=== PATIENT | female | born 1980 | race American Indian/Alaskan Native ===

== ENCOUNTER 2017-07-26 22:15 | Inpatient (IN) | payer MEDICAID, OTHER ==
[2017-07-26 22:23] VITALS: BMI 52.9
--- NOTE | 2017-07-26 22:50 | ED PDOC ---
Arrival/HPI - General Chief Complaint: Psychiatric Evaluation Time Seen by Provider: 07/26/17 22:16 Historian: Patient - History of Present Illness Narrative History of Present Illness (Text): 07/26/17 22:20 Mena Forrest is a 37 year old female brought in by Rakesh COLIN whose past medical history includes schizophrenia and bipolar disorder, who presents to the ED brought in by EMS for psychiatric evaluation. Patient denies any fever, chills, chest pain, shortness of breath, nausea, vomiting, diarrhea, urinary symptoms, back pain, neck pain, headache, dizziness, or any other complaints. PMD: Dr. Fritz Time/Duration: 4-6 hours Symptom Onset: Gradual Symptom Course: Unchanged Severity Level: Mild Activities at Onset: Light Context: Home Past Medical History - Provider Review Nursing Documentation Reviewed: Yes - Infectious Disease Hx of Infectious Diseases: None - Cardiac Hx Hypertension: Yes - Pulmonary Hx Tuberculosis: No - Neurological HX Cerebrovascular Accident: No Hx Seizures: No Other/Comment: Insomnia - Hematological/Oncological Hx Cancer: No - Genitourinary/Gynecological Hx Sexually Transmitted Diseases: No - Psychiatric Hx Anxiety: Yes Hx Bipolar Disorder: Yes Hx Schizophrenia: Yes Hx Substance Use: Yes - Anesthesia Hx Anesthesia: No Family/Social History - Physician Review Nursing Documentation Reviewed: Yes Family/Social History: No Known Family HX Smoking Status: Light Smoker < 10 Cigarettes Daily Hx Alcohol Use: Yes Frequency of alcohol use: Socially Hx Substance Use: Yes Substance used: PCP; Marijuana Allergies/Home Meds Allergies/Adverse Reactions: Allergies No Known Allergies Allergy (Verified 07/27/17 03:25) Review of Systems - Review of Systems Constitutional: absent: Fevers Eyes: absent: Vision Changes ENT: absent: Hearing Changes Respiratory: absent: SOB, Cough Cardiovascular: absent: Chest Pain Gastrointestinal: absent: Abdominal Pain Genitourinary Female: absent: Frequency Musculoskeletal: absent: Arthralgias Skin: absent: Pruritis Neurological: absent: Headache, Dizziness Endocrine: absent: Diaphoresis Hemo/Lymphatic: absent: Adenopathy Physical Exam Vital Signs Reviewed: Yes Vital Signs Temp Pulse Resp BP Pulse Ox 07/26/17 23:04 98 F 99 H 18 134/84 97 Temperature: Afebrile Blood Pressure: Normal Pulse: Regular Respiratory Rate: Normal Appearance: Positive for: Well-Appearing, Non-Toxic, Comfortable Pain Distress: None Mental Status: Positive for: Alert and Oriented X 3 - Systems Exam Head: Present: Atraumatic, Normocephalic Pupils: Present: PERRL Extroacular Muscles: Present: EOMI Conjunctiva: Present: Normal Mouth: Present: Moist Mucous Membranes Neck: Present: Normal Range of Motion Respiratory/Chest: Present: Clear to Auscultation, Good Air Exchange. No: Respiratory Distress, Accessory Muscle Use Cardiovascular: Present: Regular Rate and Rhythm, Normal S1, S2. No: Murmurs Abdomen: Present: Normal Bowel Sounds. No: Tenderness, Distention, Peritoneal Signs Back: Present: Normal Inspection Upper Extremity: Present: Normal Inspection. No: Cyanosis, Edema Lower Extremity: Present: Normal Inspection. No: Edema Neurological: Present: GCS=15, CN II-XII Intact, Speech Normal Skin: Present: Warm, Dry, Normal Color. No: Rashes Psychiatric: Present: Alert, Oriented x 3, Normal Insight, Normal Concentration Medical Decision Making ED Course and Treatment: 07/26/17 22:20 Impression: 37 year old female presents with schizophrenia and is acting bizare as per [place] [facility]. Differential Diagnosis included but are not limited to: Schizophrenia Plan: -- EKG -- Urinalysis -- Labs -- Reassess and disposition Prior Visits: Notes and results from previous visits were reviewed. Patient last seen in the ED on 03/20/16 for psychiatric evaluation. Patient was admitted to the hospitalist care for further evaluation Progress Notes: 07/26/17 23:31 Patient evaluated by PES and will be admitted. - Lab Interpretations Lab Results: 07/26/17 23:53 07/26/17 23:53 Lab Results 07/26/17 23:53: Alcohol, Quantitative < 10 07/26/17 23:53: Salicylates < 1 L, Acetaminophen < 10.0 L 07/26/17 23:53: Sodium 140, Potassium 3.6, Chloride 106, Carbon Dioxide 26, Anion Gap 12, BUN 11, Creatinine 0.8, Est GFR ( Amer) > 60, Est GFR (Non- Af Amer) > 60, Random Glucose 93, Calcium 9.0, Total Bilirubin 0.2, AST 27, ALT 23, Alkaline Phosphatase 94, Total Protein 6.9, Albumin 3.6, Globulin 3.3, Albumin/Globulin Ratio 1.1 07/26/17 23:53: WBC 6.3 D, RBC 4.33, Hgb 12.1, Hct 36.2, MCV 83.6, MCH 27.9, MCHC 33.4, RDW 15.0 H, Plt Count 316, MPV 9.8, Gran % 51.8, Lymph % (Auto) 34.3 , [place] % (Auto) 8.6 H, Eos % (Auto) 4.8, Baso % (Auto) 0.5, Gran # 3.25, Lymph # 2.2, [place] # 0.5, Eos # 0.3, Baso # 0.03 07/26/17 22:50: Urine Opiates Screen Negative, Urine Methadone Screen Negative, Ur Barbiturates Screen Negative, Ur Phencyclidine Scrn Positive H, Ur Amphetamines Screen Negative, U Benzodiazepines Scrn Negative, U Oth Cocaine Metabols Negative, U Cannabinoids Screen Negative 07/26/17 22:50: Urine Color Yellow, Urine Appearance Sl cloudy, Urine pH 6.0, Ur Specific [place] >= 1.030, Urine Protein 30 H, Urine Glucose (UA) Negative, Urine Ketones Trace H, Urine Blood Negative, Urine Nitrate Negative, Urine Bilirubin Small H, Urine Urobilinogen 1.0 H, Ur Leukocyte Esterase Negative, Urine RBC Negative, Urine WBC 2 - 5, Ur Epithelial Cells 6 - 8, Urine Bacteria Mod, Urine HCG, Qual Negative I have reviewed the lab results: Yes - RAD Interpretation Radiology Orders: 07/26/17 23:19 CHEST PORTABLE [RAD] Stat - Medication Orders Current Medication Orders: Acetaminophen (Tylenol 325mg Tab) 650 mg PO Q4 PRN PRN Reason: Pain, Mild (1-3) Al Hydrox/Mg Hydrox/Simethicone (Maalox Plus 30 Ml) 30 ml PO DAILY PRN PRN Reason: Upset Stomach Benztropine Mesylate (Cogentin) 1 mg PO AMHS TAHIR Haloperidol (Haldol) 5 mg PO AMHS TAHIR PRN Reason: Protocol Magnesium Hydroxide (Milk Of Magnesia) 30 ml PO DAILY PRN PRN Reason: Constipation Topiramate (Topamax) 50 mg PO AMHS TAHIR PRN Reason: Protocol Zaleplon (Sonata) 5 mg PO HS PRN PRN Reason: Insomnia - Scribe Statement The provider has reviewed the documentation as recorded by the Angus Lee Provider Scribe Attestation: All medical record entries made by the Scribe were at my direction and personally dictated by me. I have reviewed the chart and agree that the record accurately reflects my personal performance of the history, physical exam, medical decision making, and the department course for this patient. I have also personally directed, reviewed, and agree with the discharge instructions and disposition. Disposition/Present on Arrival - Present on Arrival Any Indicators Present on Arrival: No History of DVT/PE: No History of Uncontrolled Diabetes: No Urinary Catheter: No History of Decub. Ulcer: No History Surgical Site Infection Following: None - Disposition Have Diagnosis and Disposition been Completed?: Yes Diagnosis: Schizophrenia Disposition: HOSPITALIZED Disposition Time: 23:35 Patient Problems: Current Active Problems Problem Status Onset Schizophrenia Acute Condition: GOOD
[2017-07-26 23:01] LABS: URINE BILIRUBIN SMALL (NEGATIVE); URINE BLOOD NEGATIVE (NEGATIVE); URINE GLUCOSE (UA) NEGATIVE (NEGATIVE); URINE KETONE TRACE mg/dL (NEGATIVE); URINE LEUKOCYTE ESTERASE NEGATIVE Leu/uL (NEGATIVE); URINE PROTEIN 30 mg/dL (<30 mg/dL)
[2017-07-26 23:07] LABS: URINE APPEARANCE SL CLOUDY (CLEAR); URINE COLOR YELLOW (YELLOW)
[2017-07-26 23:13] LABS: URINE BACTERIA MOD (NEG); URINE RBC NEGATIVE /hpf (0-2)
[2017-07-27 00:27] LABS: BASO # 0.03 K/mm3 (0.0-2.0); BASO % 0.5 % (0.0-3.0); EOS # 0.3 (0.0-0.7); EOS % 4.8 % (1.5-5.0); GRAN # 3.25 (1.4-6.5); GRAN % 51.8 % (50.0-68.0); HEMATOCRIT 36.2 % (36.0-48.0); LYMPH # 2.2 (1.2-3.4); LYMPH % 34.3 % (22.0-35.0); MEAN CELL VOLUME 83.6 fl (80.0-105.0); MEAN CORPUSCULAR HEMOGLOBIN 27.9 pg (25.0-35.0); MEAN CORPUSCULAR HGB CONC 33.4 g/dl (31.0-37.0); MEAN PLATELET VOLUME 9.8 fl (7.0-11.0); MONO # 0.5 (0.1-0.6); MONO % 8.6 % (1.0-6.0)
[2017-07-27 00:42] LABS: WHITE BLOOD COUNT 6.3 10^3/ul (4.5-11.0)
[2017-07-27 00:50] LABS: ALB/GLOB RATIO 1.1 (1.1-1.8); ALKALINE PHOSPHATASE 94 U/L (38-126); ALT/SGPT 23 U/L (7-56); AST/SGOT 27 U/L (14-36); BILIRUBIN,TOTAL 0.2 mg/dL (0.2-1.3); BLOOD UREA NITROGEN 11 mg/dL (7-21); CARBON DIOXIDE 26 mmol/L (21-33); CHLORIDE 106 mmol/L (98-107); GFR AFRICAN-AMERICAN > 60; GLUCOSE,RANDOM 93 mg/dL (70-110); POTASSIUM 3.6 mmol/L (3.6-5.0); SODIUM 140 mmol/L (132-148); TOTAL PROTEIN 6.9 g/dL (5.8-8.3)
[2017-07-27] MEDS ORDERED: Magnesium Hydroxide Susp 30 ml UD PO PRN (03:27)
[2017-07-27] MEDS ORDERED: Alum-Mag Hydrox-Simethicone Susp (30 mL) PO PRN (03:27)
--- NOTE | 2017-07-27 04:26 | PCM.BM ---
<Jesusita Wong - Last Filed: 07/27/17 04:23> Treatment Plan Problems - Problems identified on initial assessmt Altered Thought Process Date Initiated: 07/27/17 Time Initiated: 04:23 Assessment reference: NA Status: Active Medication nonadherance Date Initiated: 07/27/17 Time Initiated: 04:23 Assessment reference: NA Status: Active Altered Sleep Patterns Date Initiated: 07/27/17 Time Initiated: 04:24 Assessment reference: NA Status: Active Anxiety Date Initiated: 07/27/17 Time Initiated: 04:24 Assessment reference: NA Status: Active Treatment assets and liabiliti Patient Assests: adapts well, cooperative, ADL independent, physically healthy, good interpersonal skills Patient Liabilities: live alone, poor support system, relationship conflicts - Milieu Protocol Maintain good personal hygiene: daily Encourage regular showers, daily Remind patient to perform daily oral care, daily Assist patient to perform ADL's Maintain personal safety: every shift Educate patient to report safety concerns to staff, every shift Monitor environment for contraband/sharps Medication safety: Monitor for expected outcome, potential side effects: every shift, Assess barriers to learning: every shift, Assess readiness for medication education: every shift Discharge/Continuing Care - Education Needs Education Needs: Patient Medication, Patient Diagnosis/Disease Process, Patient Coping Skills, Patient Community resources, Patient Health Practices/Safety - Discharge Discharge Criteria: Tolerates medication w/o severe side effects, Free of paranoid thoughts, Free of agitation, Normal sleep pattern, Ability to care for self <Ramonita Cheema - Last Filed: 07/27/17 18:05> - Diagnosis (1) Schizophrenia Status: Acute Interventions: 07/27/17 18:05 Psychoeducation/psychotherapy Psychopharmacology/adjustment of medications as needed/ monitoring possible side effects Evaluate pt on daily basis Compliance with medications and follow up appointments Long acting medication if pt is noncompliant with pill form Suicide and homicide risk assessment and prevention, coping strategies, safety plan Relapse prevention Reduction of symptoms Improve functional status Possible assertive community treatment Cognitive behavioral therapy Family involvement Possible social skill training as outpatient (2) PCP (phencyclidine) abuse Status: Acute Interventions: 07/27/17 18:05 Maintaining sobriety Relapse prevention Possible rehabilitation Motivational interviewing 12-step programs: AA meetings <Nkechi Read - Last Filed: 07/28/17 08:52>
[2017-07-27 07:50] LABS: BASO # 0.03 K/mm3 (0.0-2.0); BASO % 0.5 % (0.0-3.0); EOS # 0.3 (0.0-0.7); EOS % 5.3 % (1.5-5.0); GRAN # 2.51 (1.4-6.5); GRAN % 41.4 % (50.0-68.0); HEMATOCRIT 36.5 % (36.0-48.0); LYMPH # 2.8 (1.2-3.4); LYMPH % 45.5 % (22.0-35.0); MEAN CELL VOLUME 83.7 fl (80.0-105.0); MEAN CORPUSCULAR HEMOGLOBIN 27.3 pg (25.0-35.0); MEAN CORPUSCULAR HGB CONC 32.6 g/dl (31.0-37.0); MEAN PLATELET VOLUME 9.6 fl (7.0-11.0); MONO # 0.4 (0.1-0.6); MONO % 7.3 % (1.0-6.0); WHITE BLOOD COUNT 6.1 10^3/ul (4.5-11.0)
[2017-07-27 08:27] LABS: ALB/GLOB RATIO 1.1 (1.1-1.8); ALKALINE PHOSPHATASE 81 U/L (38-126); ALT/SGPT 31 U/L (7-56); AST/SGOT 24 U/L (14-36); BILIRUBIN,TOTAL 0.2 mg/dL (0.2-1.3); BLOOD UREA NITROGEN 9 mg/dL (7-21); CALCIUM 8.7 mg/dL (8.4-10.5); CARBON DIOXIDE 26 mmol/L (21-33); CHLORIDE 109 mmol/L (98-107); CHOLESTEROL 155 mg/dL (130-200); GFR AFRICAN-AMERICAN > 60; GLUCOSE,FASTING 83 mg/dL (65-110); GLUCOSE,RANDOM 83 mg/dL (70-110); POTASSIUM 3.8 mmol/L (3.6-5.0); SODIUM 140 mmol/L (132-148); TOTAL PROTEIN 6.1 g/dL (5.8-8.3)
[2017-07-27 08:36] LABS: FREE T4 0.92 ng/dL (0.78-2.19)
[2017-07-27 08:50] LABS: THYROID STIMULATING HORMONE 1.61 mIU/mL (0.46-4.68)
[2017-07-27 09:36] LABS: T4 5.1 ug/dL (5.5-11.0)
--- NOTE | 2017-07-27 10:48 | RAD ---
HISTORY: cp COMPARISON: No prior. FINDINGS: LUNGS: No active pulmonary disease. PLEURA: No significant pleural effusion identified, no pneumothorax apparent. CARDIOVASCULAR: Normal. OSSEOUS STRUCTURES: No significant abnormalities. VISUALIZED UPPER ABDOMEN: Normal. OTHER FINDINGS: None. IMPRESSION: No active disease.
[2017-07-27] MEDS: Albuterol-Ipratrop 3 mg / 0.5 (3 ml) UD IH SCH ×2 (11:30→14:30)
[2017-07-27] MEDS: Furosemide 40 mg/5 mL Oral Soln UD PO SCH (12:07)
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
[2017-07-27] MEDS ORDERED: Ergocalciferol 50,000 Intl Units Cap PO SCH (19:45)
--- NOTE | 2017-07-27 20:58 | CARD ---
APPROVED REPORT EKG Measurement Heart [id number] <Conclusion> Normal sinus rhythm Minimal voltage criteria for LVH, may be normal variant Borderline ECG
[2017-07-27] MEDS: Fluticasone Nasal 50 mcg/Spray NS SCH (21:27)
--- NOTE | 2017-07-28 05:33 | CON ---
DATE: 07/26/2017 REQUESTING PHYSICIAN: Ramonita Cheema MD HISTORY OF PRESENT ILLNESS: The patient is a 37-year-old morbidly obese female who came to the emergency room on July 26. The patient was brought to the emergency room by [facility] for bizarre behavior. The patient denied any suicidal or homicidal ideation. According to the ER physician evaluation, the patient has past medical history of schizophrenia and bipolar disorder, was brought to the [facility] by the EMS for bizarre behavior. The patient states that she has been stressed and depressed. The patient's 13-system review: Also, complained of cough and nasal congestion. Code status: Full code. Living Will Advance Directive: None. ALLERGIES: NONE. Weight is 318 pounds. Next BMI is 53. HOME MEDICATIONS: Topamax 200 mg a.m. and at bedtime, nicotine patch 7 mg daily, Cozaar 50 mg daily, Haldol 10 mg daily, Haldol Decanoate 200 mg IM, Cogentin 2 mg daily. SOCIAL HISTORY: Positive for active smoker. Positive for alcohol use. Positive for substance abuse. MENSTRUAL HISTORY: The patient denies being . OCCUPATIONAL HISTORY: The patient disabled, does not work. The patient's past medical history significant for hypertension, on Cozaar 50 mg daily; history of morbid obesity; history of nicotine dependence; history of alcohol and substance abuse. The patient's past medical history is significant for insomnia, history of anxiety disorder, bipolar disorder, schizophrenia. Past medical history significant for alcohol use and substance abuse. The patient's past medical history is also significant for multiple hospitalization to psychiatry inpatient unit in [facility]. History of psychotic behavior, history of disorganized thoughts, history of poor hygiene, history of hypertension, history of obesity. The patient is seen in the day room in the psychiatry floor. The patient is sitting up in the bed complaining of coughing and nasal congestion. PHYSICAL EXAMINATION: GENERAL: The patient is alert, awake, oriented x3. Vital Signs: T-max 98; heart rate 88-99; blood pressure 112/76, 134/84, 126/84; respiration 16; O2 sat 96%. Head Examination: Normocephalic, atraumatic. HEENT Examination: Shows pink conjunctivae. Anicteric sclerae. Decreased oropharynx noted. Narrow oropharynx noted. The patient has macroglossia. NECK: Short and supple. CHEST: Kyphosis. LUNGS: Examination shows occasional rhonchi bilaterally. CARDIOVASCULAR: S1, S2, regular rhythm. ABDOMEN: Morbidly obese. GENITALIA: Female. RECTAL: Examination is deferred. EXTREMITIES: Shows nonpitting edema. No swelling of the lower extremity. MUSCULOSKELETAL: Examination shows a body mass index of 53. Cranial nerves II-XII intact. Ambulation is intact. Motor strength is 5/5 in upper and lower extremity. DIAGNOSTICS CBC was reviewed. Hemoglobin/hematocrit 11.9/36.5 to 12.1/36.2. There is slight lymphocytosis. Chemistry is significant for normal LFTs and normal chemistry. Cholesterol 155, LDL 71, HDL 58. Vitamin D 25-hydroxy 22. Thyroid panel, TSH is normal. Urinalysis shows protein 30, trace ketones, moderate bacteria. Drug screen is positive for phencyclidine, negative for alcohol, negative for Tylenol, negative for salicylates. RPR is nonreactive. The patient had a chest x-ray done in the emergency room which shows no active disease. EKG done in the emergency room shows sinus rhythm, hypertensive cardiovascular disease noted. The patient was seen in the emergency room by Dr. Parker San. The patient was evaluated. The patient's case was referred to PDS.. The patient was cleared for admission to psychiatry unit. IMPRESSION AND PLAN 1. Acute exacerbation of schizophrenia with bizarre behavior and psychosis. 2. Super morbid obesity with elevated body mass index of 53. 3. History of hypertension. 4. Questionable sinusitis. 5. Nicotine dependence and addiction. 6. Post nasal drip. 7. Possible allergic rhinitis. 8. Mild lymphocytosis. 9. Hypovitaminosis D. 10. History of hypertension, proteinuria. 11. History of substance abuse, nicotine dependence and alcohol use. 12. Morbid obesity. 13. Hypertensive cardiovascular disease with left ventricular hypertrophy. 14. History of PCP marijuana use. 15. Active nicotine addiction and dependence. 16. Spectrum disorder, schizophrenia, possible substance abuse, psychosis, history of PCP abuse. 17. Bacteriuria. PLAN: Plan at this time; the patient has been ordered urine culture. The patient's current medications as per psychiatry and as per the MAR. The patient is on Cogentin 1 mg twice a day a.m. and at bedtime. The patient's Cozaar 50 mg daily has been ordered, Netool 50,000 weekly. The patient is started on DuoNeb nebulizer every 6 hours, Flonase nasal spray 1 puff each nostril twice a day, Haldol was started at 5 mg in a.m. and at bedtime. The patient is started on Lasix 40 mg daily for venous stasis of the lower extremity. The patient is ordered nicotine patch 21 mg daily. The patient is ordered Sonata 5 mg at bedtime p.r.n. The patient is started on Tessalon Perles 200 three times a day, Topamax 50 mg a.m. and at bedtime, Tylenol 650 q. 4 p.r.n. The patient has been ordered LUPE stockings. In addition, the patient will be ordered venous Doppler of the lower extremity for bilateral lower extremity nonpitting edema to rule out any underlying pathology. The patient's further management will be dependent upon the patient's clinical condition, hemodynamic status and as per the patient response with therapeutic intervention as per the patient's diagnostic test results and as per recommendation by all the physician involved in the care of the patient. Colt Irizarry MD
[2017-07-28 08:19] LABS: ALB/GLOB RATIO 1.1 (1.1-1.8); ALKALINE PHOSPHATASE 95 U/L (38-126); ALT/SGPT 28 U/L (7-56); AST/SGOT 24 U/L (14-36); BILIRUBIN,TOTAL 0.2 mg/dL (0.2-1.3); BLOOD UREA NITROGEN 12 mg/dL (7-21); CALCIUM 8.8 mg/dL (8.4-10.5); CARBON DIOXIDE 27 mmol/L (21-33); CHLORIDE 105 mmol/L (98-107); GFR AFRICAN-AMERICAN > 60; GLUCOSE,RANDOM 86 mg/dL (70-110); POTASSIUM 4.2 mmol/L (3.6-5.0); SODIUM 140 mmol/L (132-148); TOTAL PROTEIN 6.8 g/dL (5.8-8.3)
[2017-07-28] MEDS: Furosemide 40 mg/5 mL Oral Soln UD PO SCH (09:14)
[2017-07-28] MEDS: Fluticasone Nasal 50 mcg/Spray NS SCH ×2 (09:15→17:40)
[2017-07-28] MEDS: Albuterol-Ipratrop 3 mg / 0.5 (3 ml) UD IH SCH ×4 (11:10→21:41)
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
--- NOTE | 2017-07-28 17:38 | US ---
HISTORY: Leg pain and swelling. Evaluate for DVT PHYSICIAN(S): Gerald Pandey MD. TECHNIQUE: Duplex sonography and color-flow Doppler with graded compression were used to evaluate the deep venous systems of both lower extremities. FINDINGS: The visualized deep venous systems of both lower extremities are sonographically normal and compressible. Normal wave forms and augmentation are seen. There is no sonographic evidence for deep venous thrombosis in the visualized segments of both lower extremities. IMPRESSION: No sonographic evidence for deep venous thrombosis in the visualized segments of both lower extremities.
--- NOTE | 2017-07-29 00:03 | PN ---
DATE: 07/28/2017 SUBJECTIVE: The patient is a 37-year-old morbidly obese female who was seen and examined in room 518, bed 1. The patient is out of bed to chair and bed bathroom privileges. Overnight nurses notes were reviewed. According to the patient's nurses notes, no adverse events were documented. The patient states that she slept well. The patient denies any suicidal, homicidal ideation. Reports decreased anxiety and decreased depression. The patient also reports decreased coughing, decreased congestion since the patient was started on bronchodilators, and expectorant. The patient's states significant improvement in her symptoms. The patient appeared very cheerful today. The patient has been found ambulating in the room. OBJECTIVE: VITAL SIGNS: T-max afebrile. Heart rate 84, blood pressure 120/90 and O2 sat is in mid to high 90s. HEAD: Normocephalic and atraumatic. HEENT: Shows pink conjunctivae. Anicteric sclerae. No oropharyngeal lesion. NECK: Short and supple. CHEST: Kyphosis. No wheezing noted. Decreasing rhonchi noted. CARDIOVASCULAR: S1 and S2, regular rhythm. ABDOMEN: Morbidly obese. GENITALIA: Female. RECTAL: Deferred. EXTREMITIES: Shows nonpitting edema of the lower extremity. No calf tenderness noted. MUSCULOSKELETAL: Shows elevated body mass index. Gait examination is independent. PSYCHIATRIC: As per psychiatrist progress notes. LABORATORY DATA: The patient's venous Doppler of the lower extremities were done which are negative for any DVT. As per the preliminary report. The patient's lab data and chemistries were reviewed. The patient's imaging studies, EKG were reviewed.. All of the above details the patient's diagnostic details and therapeutic intervention from medical perspective was explained to the patient in layman's language which she acknowledged understood. IMPRESSION: 1. Acute exacerbation of anxiety and depression. 2. Acute exacerbation of schizophrenia with psychosis. 3. Nicotine addiction and dependence. 4. Polysubstance abuse and dependence. 5. Morbid obesity. 6. Asthmatic bronchitis. 7. Postnasal drip. 8. Questionable and possible clinical sinusitis. 9. Active nicotine addiction. 10. Hypertension. 11. Bilateral lower extremity venous stasis. 12. Hypovitaminosis D. PLAN: At this time, the patient will be continued on the medications as per the MAR. The patient's further management will be dependent upon the patient's clinical condition, hemodynamic status and as per the patient response to therapeutic intervention. The patient has been counseled about cessation of smoking and counseled against the use of recreational drug use. The patient is also advised weight loss. The patient has been advised compliance with recommendation from psychiatrist. The patient has been advised cessation of smoking. The patient has also advised outpatient to follow up with the medical physician. The patient states that she has been following up with . At present, the patient will be continued on the therapeutic intervention as per the MAR, which was reviewed. This morning the patient's case was discussed with the psychiatrist. I have informed the psychiatrist that from medical perspective, the patient is stable and can be managed as an outpatient with continuation of the medications, which are instituted and ordered in the hospital. If the patient wishes to followup upon discharge with me, I have advised the patient to contact the office to make an appointment for verification of acceptance of the patient's insurance. The patient was extensively explained about the details of her medical condition, diagnosis, diagnostic test results and therapeutic intervention. Planning was discussed and explained to the patient, which she acknowledged and understand. All questions concerned answered. Dictated and electronically signed, not read. Colt Irizarry MD
[2017-07-29] MEDS: Albuterol-Ipratrop 3 mg / 0.5 (3 ml) UD IH SCH ×4 (01:28→22:02)
[2017-07-29 08:18] LABS: ALB/GLOB RATIO 1.1 (1.1-1.8); ALKALINE PHOSPHATASE 91 U/L (38-126); ALT/SGPT 28 U/L (7-56); AST/SGOT 19 U/L (14-36); BILIRUBIN,TOTAL 0.3 mg/dL (0.2-1.3); BLOOD UREA NITROGEN 14 mg/dL (7-21); CALCIUM 8.9 mg/dL (8.4-10.5); CARBON DIOXIDE 27 mmol/L (21-33); CHLORIDE 104 mmol/L (98-107); GFR AFRICAN-AMERICAN > 60; GLUCOSE,RANDOM 85 mg/dL (70-110); POTASSIUM 4.2 mmol/L (3.6-5.0); SODIUM 139 mmol/L (132-148)
[2017-07-29] MEDS: Furosemide 40 mg/5 mL Oral Soln UD PO SCH (09:09)
[2017-07-29] MEDS: Fluticasone Nasal 50 mcg/Spray NS SCH ×2 (09:09→15:37)
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
[2017-07-30] MEDS: Albuterol-Ipratrop 3 mg / 0.5 (3 ml) UD IH SCH ×4 (01:16→20:59)
--- NOTE | 2017-07-30 03:06 | PN ---
DATE: 07/29/2017 SUBJECTIVE: The patient is seen in room 518 bed 1. The patient is out of [id number]. The patient is ambulating. The patient is a 37-year-old female who states that she is feeling extremely well since the time of arrival. The patient is seen on her room and also the patient was examined privately in a dinning room on the floor in front of the nursing station on psychiatry floor. The patient's overnight nurse's notes were reviewed. No adverse events documented. The patient denies any anxiety, depression. Denies any suicidal, homicidal ideation at present. PHYSICAL EXAMINATION: VITAL SIGNS: T-max 98.5, pulse 86-92, blood pressure 127/83. HEAD: Normocephalic, atraumatic. HEENT: Shows pink conjunctivae. Anicteric sclerae. No oropharyngeal lesion. No neck rigidity. CHEST: Kyphosis. LUNG: Shows no audible wheezing. No audible rhonchi. No crackles, no rales, no wheezing. CARDIOVASCULAR: S1, S2, regular rhythm. ABDOMEN: Morbidly obese. GENITALIA: Female. RECTAL: Deferred. EXTREMITY: Shows positive chronic nonpitting swelling of the lower extremity. MUSCULOSKELETAL: Shows an elevated body mass index and obesity. NEUROLOGIC: The patient is alert, awake, oriented x3. Cranial nerves II-XII intact. Gait examination is independent. VASCULAR: Palpable pulses. Plantars are downward. DTR is plus. DIAGNOSTICS: Sodium 139, potassium 4.2, chloride 104, CO2 of 27, BUN 14, creatinine 0.8. LFTs are within normal limits. Glucose 85. The patient's psychiatric evaluation was noted. IMPRESSION: 1. Acute exacerbation of schizophrenia. 2. Acute exacerbation of anxiety, depression. 3. Questionable psychosis. 4. Morbid obesity. 5. History of hypertension. 6. Active nicotine, alcohol and polysubstance abuse and dependence. 7. History of poor compliance. 8. Sinusitis, rhinitis and rhinosinusitis. 9. Possible acute bronchitis. 10. Possible chronic obstructive pulmonary disease with nicotine dependence. 11. Bilateral lower extremity venous stasis. 12. Obesity. 13. Hypovitaminosis D PLAN: At this time, the patient is to be treated and continued on medications as per MAR and the patient has to be actively and aggressively managed as per psychiatrist's recommendation and psychiatry floor treatment plan. The patient will be continued on all the medications as per the MAR which was reviewed. The patient's electrolytes are stable while the patient is taking diuretics and antihypertensive. Dictated and electronically signed, not read. Colt Irizarry MD
[2017-07-30 08:12] LABS: ALB/GLOB RATIO 1.1 (1.1-1.8); ALKALINE PHOSPHATASE 84 U/L (38-126); ALT/SGPT 28 U/L (7-56); AST/SGOT 19 U/L (14-36); BILIRUBIN,TOTAL 0.2 mg/dL (0.2-1.3); BLOOD UREA NITROGEN 12 mg/dL (7-21); CALCIUM 8.7 mg/dL (8.4-10.5); CARBON DIOXIDE 26 mmol/L (21-33); CHLORIDE 105 mmol/L (98-107); GFR AFRICAN-AMERICAN > 60; GLUCOSE,RANDOM 86 mg/dL (70-110); POTASSIUM 4.1 mmol/L (3.6-5.0); SODIUM 139 mmol/L (132-148); TOTAL PROTEIN 6.5 g/dL (5.8-8.3)
[2017-07-30] MEDS: Furosemide 40 mg/5 mL Oral Soln UD PO SCH (09:08)
[2017-07-30] MEDS: Fluticasone Nasal 50 mcg/Spray NS SCH ×2 (09:24→17:00)
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
--- NOTE | 2017-07-30 19:43 | PN ---
DATE: 07/30/2017 SUBJECTIVE: The patient is seen in the patient's room. The patient is being participating in the group therapy. The patient is ambulating without assistance. The patient denies anxiety. Denies depression. Denies suicidal, homicidal ideation. Denies any chest pain. Denies any cough. The patient states that her cough and congestion and breathing issue have resolved since the day of admission. The patient also feels that the nicotine patch is helping her significantly. Overnight nurse's notes were reviewed. No adverse events documented. OBJECTIVE: VITAL SIGNS: T-max is 98.8, heart rate is 78, 84, 90, blood pressure is ranging between 120-130 systolic to diastolic in 70s and 80s. O2 sat is mid to high 90s. HEENT: Head examination is normocephalic, atraumatic. HEENT examination shows pink conjunctivae. Anicteric sclerae. No oropharyngeal lesion. No neck rigidity. CHEST: Examination symmetrical. LUNGS: Examination shows no rales, no crackles, no wheezing, no rhonchi today anterior posteriorly. CARDIOVASCULAR: Shows S1, S2, regular rhythm. ABDOMEN: Morbidly obese. GENITALIA: Female. RECTAL: Examination is deferred. EXTREMITIES: Show chronic nonpitting swelling of the lower extremity. No calf tenderness. No Homans' sign. MUSCULOSKELETAL: Examination shows an elevated body mass index which is consistent with obesity. Gait examination is independent. NEUROLOGIC: The patient is alert, awake, oriented x3. Cranial nerves II through XII grossly intact. Gait examination is independent. Motor strength is 5/5 in upper and lower extremity. PSYCHIATRIC: Examination is as per the psychiatrist's note. DIAGNOSTICS: Chemistries and CMP were reviewed which were within normal limit. IMPRESSION AND PLAN 1. Acute exacerbation of anxiety, depression. 2. Acute exacerbation of schizophrenia. 3. Smoker's bronchitis with possible underlying emphysema. 4. Questionable rhinosinusitis. 5. Postnasal drip. 6. Nicotine, polysubstance abuse, and alcohol dependence and abuse. 7. Morbid obesity. 8. Hypertension. 9. Hypovitaminosis D. 10. History of poor compliance. PLAN: At this time, the patient's medications will be continued as per the MAR, which is reviewed. At present, the patient is otherwise medically stable from our perspective. The patient was advised to follow up medical physician and psychiatrist upon discharge and continue medication as prescribed which the patient acknowledged understood. Colt Irizarry MD
[2017-07-31] MEDS: Albuterol-Ipratrop 3 mg / 0.5 (3 ml) UD IH SCH ×4 (01:09→21:20)
[2017-07-31 08:43] LABS: ALB/GLOB RATIO 1.1 (1.1-1.8); ALKALINE PHOSPHATASE 78 U/L (38-126); ALT/SGPT 22 U/L (7-56); AST/SGOT 19 U/L (14-36); BILIRUBIN,TOTAL 0.3 mg/dL (0.2-1.3); BLOOD UREA NITROGEN 16 mg/dL (7-21); CALCIUM 8.8 mg/dL (8.4-10.5); CARBON DIOXIDE 25 mmol/L (21-33); CHLORIDE 105 mmol/L (98-107); GFR AFRICAN-AMERICAN > 60; GLUCOSE,RANDOM 85 mg/dL (70-110); POTASSIUM 4.5 mmol/L (3.6-5.0); SODIUM 138 mmol/L (132-148); TOTAL PROTEIN 6.6 g/dL (5.8-8.3)
[2017-07-31] MEDS: Fluticasone Nasal 50 mcg/Spray NS SCH ×2 (09:05→17:28)
[2017-07-31] MEDS: Furosemide 40 mg/5 mL Oral Soln UD PO SCH (09:05)
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
--- NOTE | 2017-07-31 12:51 | PN ---
LOCATION: The patient is in the behavioral care unit, [facility] in [place]. SUBJECTIVE: The patient is admitted to the [facility], Behavioral care unit for addiction disorder and also depression, psychosis and the patient had medical condition hypertension, chronic lung disease, cough, and headache. PHYSICAL EXAMINATION: VITAL SIGNS: This morning, the pulse is 90, blood pressure 112/73, respirations are 20, O2 sat is 99% on room air. HEENT: The patient's head is normocephalic. LUNGS: Clear. HEART: Normal sinus rhythm. ABDOMEN: Soft. Liver and spleen not palpable. CENTRAL NERVOUS SYSTEM: No focal deficits are noted. MEDICATIONS: The patient's list of medication consists of Cogentin, losartan, vitamin D, albuterol, Flonase, Haldol, Lasix, and nicotine patch for nicotine withdrawal. The patient is a smoker. The patient is on Sonata 5 mg at bedtime for sleep. Diet is heart-healthy diet. The patient will continue the current management. The patient's clinical condition is stable. Mini Argueta MD
[2017-08-01] MEDS: Albuterol-Ipratrop 3 mg / 0.5 (3 ml) UD IH SCH ×4 (02:00→22:58)
[2017-08-01 07:53] LABS: ALB/GLOB RATIO 1.1 (1.1-1.8); ALKALINE PHOSPHATASE 82 U/L (38-126); ALT/SGPT 27 U/L (7-56); AST/SGOT 19 U/L (14-36); BILIRUBIN,TOTAL 0.2 mg/dL (0.2-1.3); BLOOD UREA NITROGEN 16 mg/dL (7-21); CALCIUM 8.6 mg/dL (8.4-10.5); CARBON DIOXIDE 26 mmol/L (21-33); CHLORIDE 105 mmol/L (98-107); GFR AFRICAN-AMERICAN > 60; GLUCOSE,RANDOM 83 mg/dL (70-110); POTASSIUM 4.4 mmol/L (3.6-5.0); SODIUM 139 mmol/L (132-148); TOTAL PROTEIN 6.5 g/dL (5.8-8.3)
--- NOTE | 2017-08-01 08:43 | PCM.PYCHPN ---
Psychiatric Progress Note - Psychiatric Progress Note Patient seen today, length of contact: 25 min Patient Chief Complaint: "doing okay" Problems Identified/Issues Discussed: I reviewed recent notes and met with patient at bedside. Patient is superficially pleasant and cooperative. Grooming is fair and patient is oriented to location, month, year and circumstances. Reports that she is improving "doing okay" and slept well last night. Affect is a little labile however she is in good control. Denies AVH, SI or HI. Patient denies any new discomfort or pain. She has been tolerating medications. Nursing notes indicate that patient has been cheerful and bright with rapid speech. She has been visible and attending groups. There were no behavioral issues overnight. Diagnostic Results: Schizophrenia as per h/o PCP abuse r/o substance induced psychosis, better Medication Change: No Medical Record Reviewed: Yes Mental Status Examination - Cognitive Function Orientation: Person, Place - Mood Mood: Anxious, Other ("doing okay") - Affect Affect: Flat - Speech Speech: Appropriate - Formal Thought Process Formal Thought Process: Hallucinations (denied), Delusions, Paranoia, Circumstantial - Homicidal Ideation Homicidal Ideation: No Goal/Treatment Plan - Goal/Treatment Plan Need for Continued Stay: Remain at risks for inpatient hospitalization, Severe depression anxiety, Severe functional impairment Progress Toward Problem(s) and Goals/Treatment Plan: * c/w current tx and plan * Vitals reviewed and noted below: Selected Entries 07/31/17 07/31/17 07/31/17 06:51 09:05 16:00 Temperature 98.2 F Pulse Rate 90 94 H Respiratory 20 Rate Blood Pressure 112/73 112/73 109/61 O2 Sat by Pulse 99 Oximetry * New weekend labs noted below: Laboratory Results - last 24 hr 07/31/17 08/01/17 08:18 07:20 Sodium 138 139 Potassium 4.5 4.4 Chloride 105 105 Carbon Dioxide 25 26 Anion Gap 13 12 BUN 16 16 Creatinine 0.9 0.9 Est GFR ( Amer) > 60 > 60 Est GFR (Non-Af Amer) > 60 > 60 Random Glucose 85 83 Calcium 8.8 8.6 Total Bilirubin 0.3 0.2 AST 19 19 ALT 22 27 Alkaline Phosphatase 78 82 Total Protein 6.6 6.5 Albumin 3.4 3.4 Globulin 3.2 3.1 Albumin/Globulin Ratio 1.1 1.1 Estimated Date of D/C: 08/03/17
[2017-08-01] MEDS: Furosemide 40 mg/5 mL Oral Soln UD PO SCH (09:25)
[2017-08-01] MEDS: Fluticasone Nasal 50 mcg/Spray NS SCH ×2 (09:28→17:33)
[2017-08-02] MEDS: Albuterol-Ipratrop 3 mg / 0.5 (3 ml) UD IH SCH ×4 (01:35→21:58)
[2017-08-02 06:59] VITALS: RESP 20; O2SAT 98
--- NOTE | 2017-08-02 09:06 | PCM.PYCHPN ---
Psychiatric Progress Note - Psychiatric Progress Note Patient seen today, length of contact: 25 min Patient Chief Complaint: "everything is good" Problems Identified/Issues Discussed: I reviewed recent notes and met with patient at bedside. Patient is superficially pleasant and cooperative. Grooming is fair and patient is oriented to location, month, year and circumstances. Reports that "everything is good" and slept well again last night. Affect is a little labile however she is in good control and pleasant. Denies AVH, SI or HI. Complains of a little cough otherwise she denies any new discomfort, pain or side effects. Nursing notes indicate that patient has generally been friendly and bright. Demonstrates rapid speech. She has been visible and attending groups. There were no behavioral issues over the weekend. Diagnostic Results: Schizophrenia as per h/o PCP abuse r/o substance induced psychosis, better Medication Change: No Medical Record Reviewed: Yes Mental Status Examination - Cognitive Function Orientation: Person, Place - Mood Mood: Anxious ("everything is good"), Other ( ) - Affect Affect: Other (a little labile) - Speech Speech: Appropriate - Formal Thought Process Formal Thought Process: Hallucinations (denied all weekend), Delusions, Paranoia , Circumstantial - Suicidal Ideation Suicidal Ideation: No - Homicidal Ideation Homicidal Ideation: No Goal/Treatment Plan - Goal/Treatment Plan Need for Continued Stay: Remain at risks for inpatient hospitalization, Severe depression anxiety, Severe functional impairment Progress Toward Problem(s) and Goals/Treatment Plan: * c/w current tx and plan * Vitals reviewed and noted below: Selected Entries 08/01/17 08/01/17 08/01/17 07:10 09:25 09:27 Temperature 98.4 F Pulse Rate 84 84 Respiratory 18 Rate Blood Pressure 102/61 102/61 102/61 08/01/17 16:28 Temperature Pulse Rate 84 Respiratory Rate Blood Pressure 112/73 * New weekend labs noted below: Laboratory Results - last 24 hr 07/31/17 08/01/17 08:18 07:20 Sodium 138 139 Potassium 4.5 4.4 Chloride 105 105 Carbon Dioxide 25 26 Anion Gap 13 12 BUN 16 16 Creatinine 0.9 0.9 Est GFR ( Amer) > 60 > 60 Est GFR (Non-Af Amer) > 60 > 60 Random Glucose 85 83 Calcium 8.8 8.6 Total Bilirubin 0.3 0.2 AST 19 19 ALT 22 27 Alkaline Phosphatase 78 82 Total Protein 6.6 6.5 Albumin 3.4 3.4 Globulin 3.2 3.1 Albumin/Globulin Ratio 1.1 1.1 Estimated Date of D/C: 08/03/17
[2017-08-02] MEDS: Fluticasone Nasal 50 mcg/Spray NS SCH ×2 (09:18→17:40)
[2017-08-02] MEDS: Furosemide 40 mg/5 mL Oral Soln UD PO SCH (09:20)
--- NOTE | 2017-08-02 19:31 | PN ---
DATE: 08/02/2017 LOCATION: The patient is seen in room 518 bed 1. SUBJECTIVE: The patient has been ambulating out of bed to chair. The patient is alert, awake, oriented x3. The patient denies any suicidal, homicidal ideation. Denies any auditory hallucinations. Denies any chest pain. Denies coughing, denies congestion. Denies fever, denies chills. Denies nausea, denies vomiting. PHYSICAL EXAMINATION: VITAL SIGNS: In the last 24 hours were reviewed. The patient's T-max is 98.4, heart rate 84 to 92 to 96, blood pressure 123/81, 112/63, 102/61, 112/73, respirations 20, O2 sat 98%. HEAD: Normocephalic, atraumatic. EENT: Shows pink conjunctivae. Anicteric sclerae. No oropharyngeal lesion. NECK: No neck rigidity. CHEST: Kyphosis. LUNGS: Shows no rhonchi. No wheezing, no crackles, no rales. CARDIOVASCULAR: S1, S2, regular rhythm. Questionable soft systolic murmur, left sternal border, right second intercostal space. ABDOMEN: Obese. Positive bowel sounds. GENITALIA: Female. RECTAL: Deferred. EXTREMITIES: Shows nonpitting swelling of the lower extremities. No calf tenderness. No Homans' sign. NEUROLOGIC: The patient is alert, awake and oriented x3. Ambulating independently. MUSCULOSKELETAL: Shows a body mass index of 50. DIAGNOSTICS: CBC none. Chemistry from 08/01/2017, sodium 139, potassium 4.4, chloride 105, CO2 of 26, anion gap 12, BUN 16, creatinine 0.9, GFR has been steady with greater than 60, glucose 83, calcium 8.6. LFTs are normal. RPR is nonreactive. Venous Doppler of the lower extremity was negative. IMPRESSION: 1. Acute exacerbation of anxiety, depression. 2. History of longstanding multiple illness and multiple inpatient psychiatric hospitalizations. 3. History of nicotine, alcohol and substance abuse. 4. Psychotic behavior with disorganized thought process. 5. Morbid obesity. 6. History of hypertension. 7. History of schizophrenia. 8. History of PCP use. 9. Bilateral lower extremity, nonpitting venous stasis. 10. Normocytic anemia. 11. Hypovitaminosis D. 12. Proteinuria. 13. Trace bacteriuria, asymptomatic. CURRENT MEDICATIONS: 1. Cogentin 1 mg a.m. and at bedtime. 2. Cozaar 50 mg daily. 3. Drisdol 50,000 units weekly. 4. DuoNeb nebulizer every 6 hours. 5. Flonase 1 puff each nostril twice a day. 6. Haldol 5 mg a.m. at bedtime and Haldol 5 mg at 4:00 p.m. 7. Lasix 40 mg daily. 8. Nicotine patch 21 mg daily. 9. Sonata 5 mg at bedtime p.r.n. 10. Tessalon Perles 200 three times a day. 11. Topamax 50 mg a.m. and at bedtime. 12. The patient is being given Zithromax 500 [address] p[address] daily by Dr. Goldstein. PLAN: At this time, the patient has been seen by psychiatrist. The patient's echocardiogram report is pending. The patient was seen by Dr. Goldstein on Thursday on 07/31/2017. Dr. Goldstein has been covering me on 07/31/2017 and 08/01/2017. Colt Irizarry MD
[2017-08-03] MEDS: Albuterol-Ipratrop 3 mg / 0.5 (3 ml) UD IH SCH ×3 (01:56→14:05)
[2017-08-03 07:50] VITALS: PULSE 91; TEMP 98.7
[2017-08-03] MEDS: Furosemide 40 mg/5 mL Oral Soln UD PO SCH (09:49)
[2017-08-03] MEDS: Fluticasone Nasal 50 mcg/Spray NS SCH (09:49)
[2017-08-03 09:59] VITALS: BP 117/67
--- NOTE | 2017-08-03 12:16 | PCM.BM ---
Treatment Plan Problems - Problems identified on initial assessmt Altered Thought Process Date Initiated: 07/27/17 Time Initiated: Date resolved: 08/03/17 Assessment reference: NA Status: Active Medication nonadherance Date Initiated: 07/27/17 Time Initiated: Date resolved: 08/03/17 Assessment reference: NA Status: Active Altered Sleep Patterns Date Initiated: 07/27/17 Time Initiated: Date resolved: 08/03/17 Assessment reference: NA Status: Active Anxiety Date Initiated: 07/27/17 Time Initiated: Date resolved: 08/03/17 Assessment reference: NA Status: Active Treatment assets and liabiliti Patient Assests: adapts well, cooperative, ADL independent, physically healthy, good interpersonal skills Patient Liabilities: live alone, poor support system, relationship conflicts - Milieu Protocol Maintain good personal hygiene: daily Encourage regular showers, daily Remind patient to perform daily oral care, daily Assist patient to perform ADL's Maintain personal safety: every shift Educate patient to report safety concerns to staff, every shift Monitor environment for contraband/sharps Medication safety: Monitor for expected outcome, potential side effects: every shift, Assess barriers to learning: every shift, Assess readiness for medication education: every shift Milieu Narrative: * c/w current tx and plan * Vitals reviewed and noted below: Selected Entries 08/01/17 08/01/17 08/01/17 07:10 09:25 09:27 Temperature 98.4 F Pulse Rate 84 84 Respiratory 18 Rate Blood Pressure 102/61 102/61 102/61 08/01/17 16:28 Temperature Pulse Rate 84 Respiratory Rate Blood Pressure 112/73 * New weekend labs noted below: Laboratory Results - last 24 hr 07/31/17 08/01/17 08:18 07:20 Sodium 138 139 Potassium 4.5 4.4 Chloride 105 105 Carbon Dioxide 25 26 Anion Gap 13 12 BUN 16 16 Creatinine 0.9 0.9 Est GFR ( Amer) > 60 > 60 Est GFR (Non-Af Amer) > 60 > 60 Random Glucose 85 83 Calcium 8.8 8.6 Total Bilirubin 0.3 0.2 AST 19 19 ALT 22 27 Alkaline Phosphatase 78 82 Total Protein 6.6 6.5 Albumin 3.4 3.4 Globulin 3.2 3.1 Albumin/Globulin Ratio 1.1 1.1 Family Contact Family involvement: Family/SO is involved Discharge/Continuing Care - Education Needs Education Needs: Patient Medication, Patient Diagnosis/Disease Process, Patient Coping Skills, Patient Community resources, Patient Health Practices/Safety - Discharge Discharge Criteria: Tolerates medication w/o severe side effects, Free of paranoid thoughts, Free of agitation, Normal sleep pattern, Ability to care for self - Treatment Team Participation Patient/Family/SO Statement: * c/w current tx and plan * Vitals reviewed and noted below: Selected Entries 08/01/17 08/01/17 08/01/17 07:10 09:25 09:27 Temperature 98.4 F Pulse Rate 84 84 Respiratory 18 Rate Blood Pressure 102/61 102/61 102/61 08/01/17 16:28 Temperature Pulse Rate 84 Respiratory Rate Blood Pressure 112/73 * New weekend labs noted below: Laboratory Results - last 24 hr 07/31/17 08/01/17 08:18 07:20 Sodium 138 139 Potassium 4.5 4.4 Chloride 105 105 Carbon Dioxide 25 26 Anion Gap 13 12 BUN 16 16 Creatinine 0.9 0.9 Est GFR ( Amer) > 60 > 60 Est GFR (Non-Af Amer) > 60 > 60 Random Glucose 85 83 Calcium 8.8 8.6 Total Bilirubin 0.3 0.2 AST 19 19 ALT 22 27 Alkaline Phosphatase 78 82 Total Protein 6.6 6.5 Albumin 3.4 3.4 Globulin 3.2 3.1 Albumin/Globulin Ratio 1.1 1.1 Treatment Plan Review - Problem Altered Thought Process Time Initiated: 04:23 Medication nonadherance Time Initiated: :23 Altered Sleep Patterns Time Initiated: 04:24 Anxiety Time Initiated: 04:24
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
--- NOTE | 2017-08-04 02:10 | PN ---
DATE: 08/03/2017 SUBJECTIVE: The patient is seen in the day room today. The patient is out of bed to chair. The patient is alert, awake, oriented x3. Overnight nurse's notes were reviewed. The patient has improved insight and judgment. The patient participated in the group therapy. The patient was seen by the social science teacher today. The patient is for discharge today. The patient is to be discharged home to be picked up by the patient's mother. The patient is referred for appointment with psychiatrist at the adult psychiatric outpatient program at [facility]. OBJECTIVE: VITAL SIGNS: T-max afebrile 98.7; heart rate 91, 96, 92, 84; blood pressure 117/67; 123/81; respirations 20; O2 sat 98%. GENERAL: The patient is seen sitting up in the chair. HEAD: Examination normocephalic, atraumatic. EENT: Examination shows pinkish conjunctivae. Anicteric sclerae. No oropharyngeal lesion. No neck rigidity. CHEST: Examination kyphosis. LUNGS: Examination shows no rales, crackles or wheezing. CARDIOVASCULAR: S1, S2, regular rhythm. Questionable soft systolic murmur, right second intercostal space, left second intercostal space, left sternal border. ABDOMEN: Morbidly obese. GENITALIS: Female. RECTAL: Examination is deferred. EXTREMITIES: Nonpitting swelling and edema of the lower extremity which is significantly decreased since hospitalization. MUSCULOSKELETAL: Examination shows a body mass index of greater than 50. NEUROLOGIC: Cranial nerves II-XII intact. Gait examination is independent. VASCULAR: Examination palpable pulses. PSYCHIATRIC: Examination as per psychiatrist evaluation. DIAGNOSTIC DATA: From 08/03/2017, none. The patient was evaluated by the psychiatrist, Dr. Cheema. IMPRESSION AND PLAN 1. Acute exacerbation of schizophrenia with psychosis and disorganized and psychotic behavior. 2. History of noncompliance. 3. History of multiple inpatient psychiatric hospitalization and treatment. 4. History of nicotine, alcohol and PCP abuse. 5. Schizophrenia. 6. PCP phencyclidine use. 7. Morbid obesity. 8. Hypertension. 9. Hypovitaminosis D. 10. Nicotine addiction. 11. Insomnia. 12. Bilateral lower extremity venous stasis of the lower extremity. 13. Hypertensive cardiovascular disease. PLAN: At this time, the patient has been ordered an echocardiogram, the results of which are pending. The patient has been discharged on Cogentin 1 mg a.m. and at bedtime, Haldol 10 mg a.m. and at bedtime, nicotine patch 21 mg daily, Topamax 50 mg a.m. and at bedtime. Today, the patient was discharged. The patient was taking following medications in the hospital; Cogentin 1 mg a.m. and at bedtime, Cozaar 50 mg daily, Drisdol 50,000 weekly, Flonase nasal spray twice a day, Haldol 5 mg a.m. and at bedtime and 5 mg at 04:00 p.m., Lasix 40 mg daily, nicotine patch 21 mg daily, Sonata 5 mg at bedtime p.r.n., Tessalon Perles 200 three times a day, Topamax 50 mg a.m. and at bedtime. The patient was offered followup in the office if the patient prefers to. The patient was counseled about cessation of smoking, weight loss, exercise and compliance with medication and diet and cessation of smoking, alcohol and PCP use. Colt Irizarry MD
--- NOTE | 2017-08-04 08:43 | CARD ---
APPROVED REPORT EXAM: Two-dimensional and M-mode echocardiogram with Doppler and color Doppler. Other Information Quality : AverageRhythm : INDICATION Hypertension/HCVD 2D DIMENSIONS Left Atrium (2D)4.0 (1.6-4.0cm)IVSd1.1 (0.7-1.1cm) LVDd5.0 (3.9-5.9cm)PWd1.2 (0.7-1.1cm) LVDs3.5 (2.5-4.0cm)FS (%) 30.0 % LVEF (%)57.0 (>50%) M-Mode DIMENSIONS Aortic Root3.40 (2.2-3.7cm)Aortic Cusp Exc.2.00 (1.5-2.0cm) Aortic Valve AoV Peak Llvycubx365.0cm/s Mitral Valve MV E Hdbosusd77.6cm/sMV A Dkjmvrqy34.6cm/sE/A ratio0.9 TDI Lateral E' Peak V9.36cm/sMedial E' Peak V6.53cm/sE/Lateral E'7.2 E/Medial E'10.4 Pulmonary Valve PV Peak Oybevtpj50.3cm/sPV Peak Grad.1mmHg Tricuspid Valve TR Peak [id number]/sRAP [id number] Peak Gr.23mmHg [id number] LEFT VENTRICLE The left ventricle is normal size. There is normal left ventricular wall thickness. The left ventricular function is normal. The left ventricular ejection fraction is within the normal range. There is normal LV segmental wall motion. RIGHT VENTRICLE The right ventricle is normal size. ATRIA The left atrium size is normal. The right atrium size is normal. The interatrial septum is intact with no evidence for an atrial septal defect. AORTIC VALVE The aortic valve is normal in structure. MITRAL VALVE The mitral valve is normal in structure. TRICUSPID VALVE The tricuspid valve is normal in structure. There is trace tricuspid regurgitation. PULMONIC VALVE The pulmonic valve is not well visualized. <Conclusion> The left ventricle is normal size. There is normal left ventricular wall thickness. The left ventricular function is normal.
== END 2017-08-03 16:06 | disposition home or self-care (01) | DRG 430 ==
LOC: ED 22:15 → ERH 07-27 00:33 → PSYC 07-27 02:42
PROVIDERS: ADMIT Psychiatry & Neurology Psychiatry; ATTEND Psychiatry & Neurology Psychiatry
DX: F20.9 Schizophrenia, unspecified (principal); F16.10 Hallucinogen abuse, uncomplicated; R82.71 Bacteriuria; F41.9 Anxiety disorder, unspecified; F31.9 Bipolar disorder, unspecified; I11.9 Hypertensive heart disease without heart failure; F17.200 Nicotine dependence, unspecified, uncomplicated; J30.9 Allergic rhinitis, unspecified; D72.820 Lymphocytosis (symptomatic); E55.9 Vitamin D deficiency, unspecified; I87.8 Other specified disorders of veins; J45.909 Unspecified asthma, uncomplicated; E66.01 Morbid (severe) obesity due to excess calories; Z68.43 Body mass index [BMI] 50.0-59.9, adult; J06.9 Acute upper respiratory infection, unspecified; D64.9 Anemia, unspecified; G47.00 Insomnia, unspecified; Z91.19 Patient's noncompliance with other medical treatment and regimen

== ENCOUNTER 2017-08-13 15:59 | Emergency (ER) | payer MEDICAID, OTHER ==
[2017-08-13 16:00] VITALS: BMI 52.9
[2017-08-13 16:12] VITALS: TEMP 98.7
[2017-08-13] MEDS ORDERED: Sodium Chloride 0.9% 1,000 ML IV STA (16:34)
--- NOTE | 2017-08-13 16:53 | ED PDOC ---
Arrival/HPI - General Historian: Patient, Family - History of Present Illness Symptom Onset: Sudden Symptom Course: Worsening - General Chief Complaint: Psychiatric Evaluation Time Seen by Provider: 08/13/17 16:21 - History of Present Illness Narrative History of Present Illness (Text): 08/13/17 16:50 37-year-old female with a history of bipolar disorder and schizophrenia PCP usage presents today brought in by family for depression. Patient states she's been feeling very depressed lately states she hasn't been sleeping. Patient admits to using PCP 2 nights ago. Patient denies chest pain or shortness of breath. Denies fevers or chills. She is complaining of rash to the right leg. Patient complaining of cough. Admits to drinking alcohol. Denies abdominal pain. No vomiting or diarrhea. Patient has not been taking her medications per family. Family states that the patient has been out wandering around town and they have had difficulty locating her. Patient has a history of doing this in the past. (Donna Seay) Past Medical History - Provider Review Nursing Documentation Reviewed: Yes - Travel History Have you recently traveled outside [place] w/in the past 3 mons?: No - Infectious Disease Hx of Infectious Diseases: None - Tetanus Immunization Tetanus Immunization: Unknown - Cardiac Hx Cardiac Disorders: Yes Hx Hypertension: Yes - Pulmonary Hx Respiratory Disorders: No Hx Tuberculosis: No - Neurological Hx Neurological Disorder: Yes HX Cerebrovascular Accident: No Hx Seizures: No Other/Comment: Insomnia - HEENT Hx HEENT Disorder: No - Renal Hx Renal Disorder: No - Endocrine/Metabolic Hx Endocrine Disorders: No - Hematological/Oncological Hx Blood Disorders: No Hx Cancer: No - Integumentary Hx Dermatological Disorder: No - Musculoskeletal/Rheumatological Hx Musculoskeletal Disorders: No - Gastrointestinal Hx Gastrointestinal Disorders: No - Genitourinary/Gynecological Hx Genitourinary Disorders: No Hx Sexually Transmitted Diseases: No - Psychiatric Hx Psychophysiologic Disorder: Yes Hx Anxiety: Yes Hx Bipolar Disorder: Yes Hx Schizophrenia: Yes Hx Substance Use: Yes - Anesthesia Hx Anesthesia: No Family/Social History - Physician Review Nursing Documentation Reviewed: Yes Family/Social History: Unknown Family HX Smoking Status: Light Smoker < 10 Cigarettes Daily Hx Alcohol Use: Yes Hx Substance Use: Yes Substance used: PCP; Marijuana Allergies/Home Meds Allergies/Adverse Reactions: Allergies No Known Allergies Allergy (Verified 08/13/17 16:06) Home Medications: Home Meds Medication Instructions Recorded Confirmed Losartan [Cozaar] 0 mg PO DAILY 08/13/17 08/13/17 carBAMazepine [Tegretol] 0 mg PO BID 08/13/17 08/13/17 Review of Systems - Review of Systems Constitutional: absent: Fatigue, Fevers ENT: absent: Sinus Congestion Respiratory: Cough. absent: SOB Cardiovascular: absent: Chest Pain, Palpitations Gastrointestinal: absent: Abdominal Pain, Nausea, Vomiting Genitourinary Female: absent: Dysuria, Frequency Musculoskeletal: Arthralgias (right calf pain). absent: Back Pain, Neck Pain Skin: Rash Neurological: absent: Headache, Dizziness Psychiatric: Depression. absent: Anxiety, Suicidal Ideation Physical Exam Vital Signs Reviewed: Yes Temperature: Afebrile Blood Pressure: Normal Pulse: Tachycardic Respiratory Rate: Normal Appearance: Positive for: Well-Appearing, Non-Toxic, Comfortable Pain Distress: None Mental Status: Positive for: Alert and Oriented X 3 - Systems Exam Head: Present: Atraumatic Pupils: Present: PERRL Extroacular Muscles: Present: EOMI Conjunctiva: Present: Normal Mouth: Present: Moist Mucous Membranes. No: Normal Teeth (poor dentition; + dental fracture, + left lower molar tenderness) Neck: Present: Normal Range of Motion Respiratory/Chest: Present: Clear to Auscultation, Good Air Exchange. No: Respiratory Distress, Accessory Muscle Use Cardiovascular: Present: Peripheal Pulses Present, Tachycardic Abdomen: No: Tenderness, Distention, Rebound, Guarding Back: Present: Normal Inspection Upper Extremity: Present: Normal ROM. No: Tenderness Lower Extremity: Present: CALF TENDERNESS, Normal ROM, Tenderness, Erythema ( right leg; there is a small area of erythema noted to right posterior calf; ), Neurovascularly Intact, Capillary Refill < 2 s, Other (maceration noted betweentoes; ) Neurological: Present: GCS=15, Speech Normal Skin: Present: Warm, Dry Psychiatric: Present: Alert, Oriented x 3, Depressed Mood. No: Normal Affect, Suicidal Ideation Vital Signs Temp Pulse Resp BP Pulse Ox 08/13/17 20:00 91 H 16 153/93 H 99 08/13/17 16:12 98.7 F 102 H 18 123/89 95 Medical Decision Making ED Course and Treatment: 08/13/17 17:19 I was available for consultation during PA evaluation. The chart reviewed by me , and I agree with disposition. The documented history was done by the physician pinsetter mechanic helper. The documented physical exam was done by physician pinsetter mechanic helper. The documented procedures were done by physician pinsetter mechanic helper. (Enrico Suazo) 08/13/17 16:57 Patient is nontoxic well-appearing in no distress vital signs are stable. CBC WNL CMP WNL Tylenol WNL Salicylate WNL Alcohol level WNL Urine drug screen : +PCP UA; wnl cxr: wnl duplex right leg; no dvt ekg NSR at 84b/m no st elevations normal axis, normal intervals. pt is medically cleared for PES evaluation Patient was seen and evaluated by PES screener: Joseph pt cleared psychiatrically for discharge Patient reassessment: Patient alert oriented in no distress stable vital signs. I will place the patient on Keflex for cellulitis and clindamycin for dental infection. Advised follow-up with a PMD and dentist within the next 2 days. Advised me to return if symptoms worsen persist or if new concerning symptoms develop Patient verbalizes understanding of discharge instructions and need for immediate followup. Impression; toothache, PCP USe, Cellulitis, leg, fungal infection,foot keflex; 1 capsule 4 times daily x 7 days clindamycin; 3 times daily x 7 days lotrimin twice daily follow up with the Primary care physician tomorrow Follow up with the dentist within the next 2 days. Return immediately if symptoms worsen,persist or if new symptoms develop. 08/13/17 20:46 (Donna Seay) - Lab Interpretations Lab Results: 08/13/17 16:34 08/13/17 16:34 Lab Results 08/13/17 18:55: Urine Opiates Screen Negative, Urine Methadone Screen Negative, Ur Barbiturates Screen Negative, Ur Phencyclidine Scrn Positive H, Ur Amphetamines Screen Negative, U Benzodiazepines Scrn Negative, U Oth Cocaine Metabols Negative, U Cannabinoids Screen Negative 08/13/17 18:55: Urine Color Yellow, Urine Appearance Cloudy, Urine pH 8.5, Ur Specific [place] 1.010, Urine Protein Trace H, Urine Glucose (UA) Negative, Urine Ketones Negative, Urine Blood Negative, Urine Nitrate Negative, Urine Bilirubin Negative, Urine Urobilinogen 1.0 H, Ur Leukocyte Esterase Negative, Urine RBC 0 - 2, Urine WBC Negative, Ur Epithelial Cells 0 - 2, Urine Bacteria Few 08/13/17 16:34: Alcohol, Quantitative < 10 08/13/17 16:34: Salicylates < 1 L, Acetaminophen < 10.0 L 08/13/17 16:34: Sodium 141, Potassium 3.9, Chloride 107, Carbon Dioxide 25, Anion Gap 13, BUN 8, Creatinine 1.0, Est GFR ( Amer) > 60, Est GFR (Non- Af Amer) > 60, Random Glucose 101, Calcium 9.0, Total Bilirubin 0.3, AST 24, ALT 30, Alkaline Phosphatase 121, Total Creatine Kinase 268 H, CK-MB (CK-2) 0.5 , CK-MB (CK-2) % Cancelled, Total Protein 7.4, Albumin 3.9, Globulin 3.5, Albumin/Globulin Ratio 1.1 08/13/17 16:34: WBC 7.4 D, RBC 4.41, Hgb 12.3, Hct 36.5, MCV 82.8, MCH 27.9, MCHC 33.7, RDW 14.7 H, Plt Count 323, MPV 9.6, Gran % 57.9, Lymph % (Auto) 31.5 , [place] % (Auto) 6.7 H, Eos % (Auto) 3.6, Baso % (Auto) 0.3, Gran # 4.29, Lymph # 2.3, [place] # 0.5, Eos # 0.3, Baso # 0.02 - RAD Interpretation Radiology Orders: 08/13/17 16:23 CHEST PORTABLE [RAD] Stat 08/13/17 16:56 DUPLEX LOWER EXTRM VEIN RIGHT [US] Stat - Medication Orders Current Medication Orders: Discontinued Medications Cephalexin Monohydrate (Keflex) 500 mg PO STAT STA PRN Reason: Protocol Stop: 08/13/17 20:10 Clindamycin HCl (Cleocin) 150 mg PO STAT STA PRN Reason: Protocol Stop: 08/13/17 20:13 Sodium Chloride (Sodium Chloride 0.9%) 1,000 mls @ 999 mls/hr IV .Q1H1M STA Stop: 08/13/17 17:34 Last Admin: 08/13/17 16:38 Dose: 999 mls/hr eMAR Start Stop Document 08/13/17 16:38 SE (Rec: 08/13/17 16:38 SE [facility] [place]) Intravenous Solution Start Date 08/13/17 Start Time 16:38 End Date 08/13/17 End time 17:38 Total Infusion Time 60 Disposition/Present on Arrival - Present on Arrival Any Indicators Present on Arrival: No History of DVT/PE: No History of Uncontrolled Diabetes: No Urinary Catheter: No History of Decub. Ulcer: No History Surgical Site Infection Following: None - Disposition Have Diagnosis and Disposition been Completed?: Yes Disposition Time: 20:16 Patient Plan: Discharge - Disposition Diagnosis: PCP (phencyclidine) abuse, Cellulitis, leg, Toothache Disposition: HOME/ ROUTINE Patient Problems: Current Active Problems Problem Status Onset Cellulitis, leg Acute PCP (phencyclidine) abuse Acute Toothache Acute Condition: GOOD Discharge Instructions (ExitCare): Cellulitis (ED), Toothache (ED) Additional Instructions: keflex; 1 capsule 4 times daily x 7 days clindamycin; 3 times daily x 7 days follow up with the Primary care physician tomorrow Follow up with the dentist within the next 2 days. Return immediately if symptoms worsen,persist or if new symptoms develop. Prescriptions: Cephalexin [Keflex] 500 mg PO QID #28 capsule Clindamycin [Cleocin] 150 mg PO TID #21 cap Clotrimazole 1% Cream [Lotrimin 1%] 1 appl TP BID #1 tube Referrals: [facility] [Outside] - Follow up with primary Venkata Izaguirre DMD [Non-Staff] - Follow up with primary Janessa Oswald MD [Staff Provider] - Follow up with primary Forms: [employer] (Portuguese)
[2017-08-13 16:54] LABS: BASO # 0.02 K/mm3 (0.0-2.0); BASO % 0.3 % (0.0-3.0); EOS # 0.3 (0.0-0.7); EOS % 3.6 % (1.5-5.0); GRAN # 4.29 (1.4-6.5); GRAN % 57.9 % (50.0-68.0); HEMATOCRIT 36.5 % (36.0-48.0); LYMPH # 2.3 (1.2-3.4); LYMPH % 31.5 % (22.0-35.0); MEAN CELL VOLUME 82.8 fl (80.0-105.0); MEAN CORPUSCULAR HEMOGLOBIN 27.9 pg (25.0-35.0); MEAN CORPUSCULAR HGB CONC 33.7 g/dl (31.0-37.0); MEAN PLATELET VOLUME 9.6 fl (7.0-11.0); MONO # 0.5 (0.1-0.6); MONO % 6.7 % (1.0-6.0); RED CELL DISTRIBUTION WIDTH 14.7 % (11.5-14.5); WHITE BLOOD COUNT 7.4 10^3/ul (4.5-11.0)
[2017-08-13 17:11] LABS: ALB/GLOB RATIO 1.1 (1.1-1.8); ALKALINE PHOSPHATASE 121 U/L (38-126); ALT/SGPT 30 U/L (7-56); AST/SGOT 24 U/L (14-36); BILIRUBIN,TOTAL 0.3 mg/dL (0.2-1.3); BLOOD UREA NITROGEN 8 mg/dL (7-21); CARBON DIOXIDE 25 mmol/L (21-33); CHLORIDE 107 mmol/L (98-107); GFR AFRICAN-AMERICAN > 60; GLUCOSE,RANDOM 101 mg/dL (70-110); POTASSIUM 3.9 mmol/L (3.6-5.0); SODIUM 141 mmol/L (132-148); TOTAL PROTEIN 7.4 g/dL (5.8-8.3)
--- NOTE | 2017-08-13 18:26 | US ---
PROCEDURE: Right lower extremity venous US HISTORY: Leg pain and swelling. Evaluate for DVT. PHYSICIAN(S): Gerald Pandey M.D. TECHNIQUE: Duplex sonography and color-flow Doppler with graded compression were used to evaluate the deep venous system of the right lower extremity. FINDINGS: The visualized deep venous system of the right lower extremity is sonographically normal and compressible. Normal waveforms and augmentation are seen. There is no sonographic evidence for deep venous thrombosis in the visualized segments of the right lower extremity. IMPRESSION: 1. No sonographic evidence for deep venous thrombosis in the visualized segments of the right lower extremity.
[2017-08-13 19:39] LABS: PH,URINE 8.5 (4.7-8.0); URINE BILIRUBIN NEGATIVE (NEGATIVE); URINE BLOOD NEGATIVE (NEGATIVE); URINE GLUCOSE (UA) NEGATIVE (NEGATIVE); URINE KETONE NEGATIVE (NEGATIVE); URINE LEUKOCYTE ESTERASE NEGATIVE Leu/uL (NEGATIVE); URINE PROTEIN TRACE mg/dL (<30 mg/dL)
[2017-08-13 19:41] LABS: URINE APPEARANCE CLOUDY (CLEAR); URINE COLOR YELLOW (YELLOW)
[2017-08-13 19:46] LABS: URINE BACTERIA FEW (NEG); URINE EPITHELIAL CELLS 0 - 2 /hpf (0-5); URINE RBC 0 - 2 /hpf (0-2); URINE WBC NEGATIVE /hpf (0-6)
[2017-08-13 20:11] VITALS: BP 153/93; PULSE 91; RESP 16; O2SAT 99
--- NOTE | 2017-08-13 21:55 | CARD ---
APPROVED REPORT EKG Measurement Heart [id number] [id number] <Conclusion> Normal sinus rhythm Normal ECG
--- NOTE | 2017-08-14 07:43 | RAD ---
HISTORY: PES eval COMPARISON: Portable chest 07/26/2017. FINDINGS: LUNGS: No active pulmonary disease. PLEURA: No significant pleural effusion identified, no pneumothorax apparent. CARDIOVASCULAR: Normal. OSSEOUS STRUCTURES: No significant abnormalities. VISUALIZED UPPER ABDOMEN: Normal. OTHER FINDINGS: None. IMPRESSION: No interval acute cardiopulmonary disease appreciated.
== END 2017-08-13 21:00 | disposition home or self-care (01) ==
LOC: ED 15:59
DX: F16.10 Hallucinogen abuse, uncomplicated (principal); L03.115 Cellulitis of right lower limb; K08.89 Other specified disorders of teeth and supporting structures; I10 Essential (primary) hypertension; F17.210 Nicotine dependence, cigarettes, uncomplicated
CPT/HCPCS: 71010; 80053; 80320; 80324; 80329; 80345; 80346; 80349; 80353; 80358; 80361; 81001; 82550; 82553; 83992; 85025; 90791; 93005; 93971; 96360; 99283; J7040

== ENCOUNTER 2017-08-15 09:54 | Inpatient (IN) | payer MEDICAID, OTHER ==
[2017-08-15 10:03] VITALS: BMI 41.9
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
[2017-08-15 10:58] LABS: BASO # 0.02 K/mm3 (0.0-2.0); BASO % 0.3 % (0.0-3.0); EOS # 0.2 (0.0-0.7); EOS % 3.3 % (1.5-5.0); GRAN # 4.17 (1.4-6.5); GRAN % 60.6 % (50.0-68.0); LYMPH % 29.5 % (22.0-35.0); MEAN CORPUSCULAR HGB CONC 33.8 g/dl (31.0-37.0); MEAN PLATELET VOLUME 9.2 fl (7.0-11.0); MONO # 0.4 (0.1-0.6); MONO % 6.3 % (1.0-6.0); RED CELL DISTRIBUTION WIDTH 14.6 % (11.5-14.5); WHITE BLOOD COUNT 6.9 10^3/ul (4.5-11.0)
[2017-08-15 11:14] LABS: URINE APPEARANCE SLIGHT-CLOUDY (CLEAR); URINE BILIRUBIN NEGATIVE (NEGATIVE); URINE BLOOD NEGATIVE (NEGATIVE); URINE COLOR STRAW (YELLOW); URINE GLUCOSE (UA) NEGATIVE (NEGATIVE); URINE KETONE NEGATIVE (NEGATIVE); URINE LEUKOCYTE ESTERASE NEGATIVE Leu/uL (NEGATIVE); URINE PROTEIN NEGATIVE mg/dL (<30 mg/dL); URINE UROBILINOGEN 0.2 E.U./dL (<1 E.U./dL)
[2017-08-15 11:14] LABS: ALB/GLOB RATIO 1.1 (1.1-1.8); ALKALINE PHOSPHATASE 106 U/L (38-126); ALT/SGPT 23 U/L (7-56); AST/SGOT 25 U/L (14-36); BILIRUBIN,TOTAL 0.3 mg/dL (0.2-1.3); BLOOD UREA NITROGEN 8 mg/dL (7-21); CARBON DIOXIDE 26 mmol/L (21-33); CHLORIDE 108 mmol/L (98-107); GFR AFRICAN-AMERICAN > 60; GLUCOSE,RANDOM 102 mg/dL (70-110); POTASSIUM 3.8 mmol/L (3.6-5.0); SODIUM 142 mmol/L (132-148); TOTAL PROTEIN 7.2 g/dL (5.8-8.3)
--- NOTE | 2017-08-15 11:37 | RAD ---
HISTORY: psych COMPARISON: Chest x-ray performed 08/13/17 TECHNIQUE: Chest, one view. FINDINGS: The patient's chin obscures evaluation of the lung apices. Examination limited by habitus. LUNGS: No focal consolidation. PLEURA: No significant pleural effusion identified. No definite pneumothorax . CARDIOVASCULAR: Heart size appears top normal. OSSEOUS STRUCTURES: Partially imaged fixation of the mid right humerus. VISUALIZED UPPER ABDOMEN: Unremarkable. OTHER FINDINGS: None. IMPRESSION: No focal consolidation, significant pleural effusion, or definite pneumothorax identified.
--- NOTE | 2017-08-15 22:05 | CARD ---
APPROVED REPORT EKG Measurement Heart [id number] <Conclusion> Normal sinus rhythm Normal ECG
[2017-08-16] MEDS: DiphenhydrAMINE 50 mg/ml Inj IM PRN ×2 (06:37→17:37)
[2017-08-16] MEDS: Ergocalciferol 50,000 Intl Units Cap PO SCH (11:36)
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
--- NOTE | 2017-08-16 14:43 | CT ---
PROCEDURE: CT HEAD WITHOUT CONTRAST. HISTORY: AMS COMPARISON: 03/20/2016 TECHNIQUE: Axial computed tomography images were obtained through the head/brain without intravenous contrast. Radiation dose: Total exam DLP = 775.01 mGy-cm. This CT exam was performed using one or more of the following dose reduction techniques: Automated exposure control, adjustment of the mA and/or kV according to patient size, and/or use of iterative reconstruction technique. FINDINGS: HEMORRHAGE: No intracranial hemorrhage. BRAIN: No mass effect or edema. No atrophy or chronic microvascular ischemic changes. VENTRICLES: Unremarkable. No hydrocephalus. CALVARIUM: Unremarkable. PARANASAL SINUSES: Unremarkable as visualized. No significant inflammatory changes. MASTOID AIR CELLS: Unremarkable as visualized. No inflammatory changes. OTHER FINDINGS: None. IMPRESSION: No acute intracranial abnormalities. No significant findings to account for the clinical presentation. No significant interval change compared to the prior examination(s).
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
[2017-08-17] MEDS: Pantoprazole 40 mg EC Tab PO SCH (09:36)
[2017-08-17 09:51] LABS: BASO # 0.01 K/mm3 (0.0-2.0); BASO % 0.2 % (0.0-3.0); EOS # 0.3 (0.0-0.7); EOS % 4.5 % (1.5-5.0); GRAN # 3.19 (1.4-6.5); GRAN % 51.1 % (50.0-68.0); HEMATOCRIT 39.9 % (36.0-48.0); LYMPH # 2.3 (1.2-3.4); LYMPH % 36.3 % (22.0-35.0); MEAN CELL VOLUME 82.8 fl (80.0-105.0); MEAN CORPUSCULAR HEMOGLOBIN 27.8 pg (25.0-35.0); MEAN CORPUSCULAR HGB CONC 33.6 g/dl (31.0-37.0); MEAN PLATELET VOLUME 9.5 fl (7.0-11.0); MONO # 0.5 (0.1-0.6); MONO % 7.9 % (1.0-6.0); RED CELL DISTRIBUTION WIDTH 14.6 % (11.5-14.5); WHITE BLOOD COUNT 6.2 10^3/ul (4.5-11.0)
[2017-08-17 10:06] LABS: ALB/GLOB RATIO 1.1 (1.1-1.8); ALKALINE PHOSPHATASE 79 U/L (38-126); ALT/SGPT 25 U/L (7-56); AST/SGOT 20 U/L (14-36); BILIRUBIN,DIRECT 0.3 mg/dL (0.0-0.4); BILIRUBIN,TOTAL 0.3 mg/dL (0.2-1.3); BLOOD UREA NITROGEN 12 mg/dL (7-21); CALCIUM 9.2 mg/dL (8.4-10.5); CARBON DIOXIDE 24 mmol/L (21-33); CHLORIDE 106 mmol/L (98-107); GFR AFRICAN-AMERICAN > 60; GLUCOSE,RANDOM 117 mg/dL (70-110); SODIUM 140 mmol/L (132-148); TOTAL PROTEIN 7.3 g/dL (5.8-8.3)
--- NOTE | 2017-08-17 11:27 | PCM.BM ---
Treatment Plan Problems - Problems identified on initial assessmt Delusions Date Initiated: 08/17/17 Time Initiated: 11:24 Assessment reference: NA Priority: 1 Thought Process Date Initiated: 08/17/17 Time Initiated: :25 Assessment reference: NA Status: Active Priority: 2 Agitated Behavior Date Initiated: 08/17/17 Time Initiated: 11:25 Assessment reference: NA Status: Active Priority: 3 Treatment assets and liabiliti Patient Assests: adapts well, cooperative, ADL independent, physically healthy, good interpersonal skills Patient Liabilities: relationship conflicts, substance abuse - Milieu Protocol Maintain good personal hygiene: daily Encourage regular showers, daily Remind patient to perform daily oral care, daily Assist patient to perform ADL's Maintain personal safety: every shift Educate patient to report safety concerns to staff, every shift Monitor environment for contraband/sharps Medication safety: Monitor for expected outcome, potential side effects: every shift, Assess barriers to learning: every shift, Assess readiness for medication education: every shift Family Contact - Goals for Treatment Patient goals for treatment: "To watch [employer]" Discharge/Continuing Care - Education Needs Education Needs: Patient Medication, Patient Diagnosis/Disease Process, Patient Coping Skills, Patient Health Practices/Safety, Patient Personal Hygiene/ Grooming, Patient Aftercare Safety Plan - Discharge Discharge Criteria: Tolerates medication w/o severe side effects, Reduction of target symptoms Discharge to:: Home
--- NOTE | 2017-08-17 15:17 | PCM.BM ---
Treatment assets and liabiliti Patient Assests: adapts well, cooperative, ADL independent, physically healthy, good interpersonal skills - Diagnosis (1) Schizophrenia Status: Chronic Interventions: 08/16/17 08:34 Psychoeducation/psychotherapy Psychopharmacology/adjustment of medications as needed/ monitoring possible side effects Evaluate pt on daily basis Compliance with medications and follow up appointments Long acting medication Haldol if pt is noncompliant with pill form Suicide and homicide risk assessment and prevention, coping strategies, safety plan Relapse prevention Reduction of symptoms Improve functional status Possible assertive community treatment Cognitive behavioral therapy Family involvement Possible social skill training as outpatient (2) Phencyclidine-induced psychosis Status: Acute Interventions: 08/16/17 08:35 Maintaining sobriety Relapse prevention Possible rehabilitation Motivational interviewing 12-step programs: AA meetings 08/16/17 08:35
--- NOTE | 2017-08-17 15:22 | PN ---
DATE: 08/17/2017 SUBJECTIVE: The patient is seen lying in the bed in room 519, bed 1. The patient appears to be awake and responsive. The patient has been sedated with Benadryl, Haldol, and Ativan. The patient according to the nurses' note remained actively psychotic, mumbling, and ranting and bizarre voices. The patient is on 1:1 at present. Overnight nurses' notes were noted. The patient had flat affect, disorganized speech, and unclear mumbled speech. Responses were tangential, irrelevant to question, and disoriented. The patient slept well. The patient was found to be psychotic. The patient was hallucinating. The patient was placed on placed on 1:1. OBJECTIVE: VITAL SIGNS: T-max 97.7, pulse 78 to 85 to 95, blood pressure ranging from 154/94, 149/85, 156/99, respirations 19, and O2 sat 96%. HEENT: Head examination normocephalic and atraumatic. HEENT examination shows pinkish conjunctivae. Anicteric sclerae. No oropharyngeal lesion. NECK: No neck rigidity. CHEST: Kyphosis. CARDIOVASCULAR: S1 and S2, regular rhythm. ABDOMEN: Soft and obese. Positive bowel sounds. GENITALIA: Female. RECTAL: Deferred. EXTREMITIES: Shows no pitting edema. No calf tenderness. No Homans' sign. MUSCULOSKELETAL: Shows an elevated body mass index of 42. NEUROLOGICAL: The patient is alert, awake, responsive, and sluggish. The patient is seen lying in the bed. Motor strength is 5/5. The patient is able to move upper and lower extremity without assistance. DIAGNOSTIC DATA: None from today. The patient's CT of the head, which was done yesterday is reviewed for evaluation of the patient's mental status. CT of the head was negative. IMPRESSION: 1. Active psychosis with behavioral disorder. 2. Active psychosis with behavioral disorder with flat affect, disorganized speech, and tangential responses. 3. Morbid obesity. 4. Hypertension. 5. Tachycardia. 6. History of chronic noncompliance. 7. Active PCP use. 8. Active alcohol, tobacco abuse, and dependence. 9. Insomnia. 1. Questionable acute exacerbation of schizoaffective disorder with bizarre behavior and behavioral disorder. 2. Chronic noncompliance and poor compliance with medication. 3. Active PCP use. 4. Substance-induced mood disorder. 5. Alcohol and tobacco use and abuse disorder. 6. Morbid obesity. 7. Transient uncontrolled hypertension. 8. Questionable altered mental status secondary to underlying psychiatric problem versus medications. 9. Active nicotine, alcohol, and substance abuse disorder. 10. Insomnia. 11. Hypertension. 12. Hypovitaminosis D. 13. Active nicotine addiction. PLAN: At this time, the patient has been ordered following medications; Ativan 2 mg IV q.6 hours p.r.n., Benadryl 50 IM q.6 hours p.r.n., Cogentin 2 mg a.m. and at bedtime, Cozaar 25 mg daily, which will be considered for increasing if the patient's blood pressure remains elevated, Drisdol 50,000 weekly, Haldol 5 mg IM q.6 hours p.r.n. and Haldol 10 mg a.m. and at bedtime, heparin 5000 subcutaneously q.8 hours, nicotine patch 7 mg daily, Protonix 40 mg daily, Tylenol p.r.n., and 1:1 observation. At present, the patient is to be continued with above therapeutic intervention. The patient will be ordered repeat labs today for monitoring of the patient's clinical condition and objective data. The patient at present is to be continued on above therapeutic intervention as psychiatry. At present, the patient is otherwise medically and relatively stable, but the patient needs acute psychiatric intervention for her management of acute psychosis and psychiatric status. Dictated and electronically signed, not read. Colt Irizarry MD MTDD
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
[2017-08-18] MEDS: DiphenhydrAMINE 50 mg/ml Inj IM PRN ×2 (01:28→23:46)
[2017-08-18] MEDS: Pantoprazole 40 mg EC Tab PO SCH (06:20)
--- NOTE | 2017-08-18 13:51 | PN ---
DATE: 08/18/2017 SUBJECTIVE: The patient is seen in day room. The patient is today sitting up in the wheelchair. The patient is much more alert, awake, responsive, cheerful, but the patient's speech is still the patient's affect is still constricted. The patient complaining of insomnia and poor sleep. The patient has been found to be anxious, restless. The patient has been on 1:1. According to the his psychiatric nursing note, the patient had blunted affect and psychotic, disorganized speech and thoughts were noted. The patient had mumbled speech. The patient was sitting up in the wheelchair. The patient today is much calmer and cooperative in the morning. Smiling. OBJECTIVE: VITAL SIGNS: T-max 98.4. Pulse 80. Blood pressure 113/72, 139/77, 154/95, 149/85. Respiration 16-19. O2 sat 96%. HEAD: Examination normocephalic, atraumatic. HEENT: Examination shows pink conjunctivae. Anicteric sclerae. No oropharyngeal lesion. No neck rigidity. CHEST: Examination kyphosis. LUNGS: Examination shows no rales, crackles or wheezing. CARDIOVASCULAR: Examination S1, S2, regular rhythm. ABDOMEN: Obese. Positive bowel sound. GENITALIA: Female. RECTAL: Examination is deferred. EXTREMITY: Shows chronic nonpitting swelling of the lower extremity. MUSCULOSKELETAL: Examination shows an elevated body mass index of 42. Cranial nerve II through XII limited. Gait examination is not tested. IMPRESSION: 1. Acute psychosis with disorganized, tangential speech and thoughts with gait dysfunction. 2. Morbid obesity. 3. Insomnia. 4. Anxious, restless and agitated state with anxiety. 5. History of hypertension. 6. Morbid obesity with elevated body mass index of 42. 7. Urine drug screen positive for PCP. 8. Active nicotine, alcohol and drug abuse and dependence. 9. Paranoia and auditory, visual hallucination. 10. Poor personal hygiene. 11. Psychomotor agitation and retardation. 12. Substance-induced mood disorder. 13. Schizoaffective disorder. 14. Nicotine, alcohol PCP use abuse disorder. 15. History of questionable asthma. 1. Active psychosis with behavioral disorder. 2. Active psychosis with behavioral disorder with flat affect, disorganized speech, and tangential responses. 3. Morbid obesity. 4. Hypertension. 5. Tachycardia. 6. History of chronic noncompliance. 7. Active PCP use. 8. Active alcohol, tobacco abuse, and dependence. 9. Insomnia. 1. Questionable acute exacerbation of schizoaffective disorder with bizarre behavior and behavioral disorder. 2. Chronic noncompliance and poor compliance with medication. 3. Active PCP use. 4. Substance-induced mood disorder. 5. Alcohol and tobacco use and abuse disorder. 6. Morbid obesity. 7. Transient uncontrolled hypertension. 8. Questionable altered mental status secondary to underlying psychiatric problem versus medications. 9. Active nicotine, alcohol, and substance abuse disorder. 10. Insomnia. 11. Hypertension. 12. Hypovitaminosis D. 13. Active nicotine addiction. PLAN: At this time, the patient is on following medications; Ativan 2 mg IM q. 6 hours p.r.n., Benadryl 50 mg IM q. 6 hours p.r.n., Cogentin 2 mg a.m. and at bedtime, Cozaar 25 mg daily, Drisdol 50,000 weekly, Haldol 5 mg IM q. 6 hours p.r.n., Haldol 10 mg a.m. and at bedtime, heparin 5000 subcu q. 8 for DVT prophylaxis, nicotine patch 7 mg daily, Protonix 40 mg daily, Tylenol 650 q. 4 p.r.n., Xopenex nebulizer 0.63 mg every 6 hours. Regular diet ordered, 1:1 observation ordered. At present, the patient is to be continued on above therapeutic and diagnostic intervention as per psychiatry. The patient's diagnostic data was reviewed which is relatively stable at this time. The patient has been advised about continuation of the medical therapy. The patient was advised strict compliance. The patient is advised to be out of bed to chair. The patient will be continued on above therapeutic intervention. The patient will be ordered physical therapy, occupational therapy, ambulation therapy for gait training, ambulation. Dictated and electronically signed, not read. Colt Irizarry MD MTDD
--- NOTE | 2017-08-18 15:53 | PCM.PYCHPN ---
Psychiatric Progress Note - Psychiatric Progress Note Patient seen today, length of contact: 30min Patient Chief Complaint: "I am better, I am better, I am better, do you want to see me? do you want to see me? how do I feel? how do I feel? how do I feel?" Medical Problems: asthma, obesity Diagnostic Results: 08/17/17 09:40 08/17/17 09:40 Lab Results 08/17/17 09:40: Sodium 140, Potassium 4.0, Chloride 106, Carbon Dioxide 24, Anion Gap 14, BUN 12, Creatinine 1.0, Est GFR ( Amer) > 60, Est GFR (Non- Af Amer) > 60, Random Glucose 117 H, Calcium 9.2, Magnesium 2.0, Total Bilirubin 0.3, Direct Bilirubin 0.3, AST 20, ALT 25, Alkaline Phosphatase 79, Total Protein 7.3, Albumin 3.9, Globulin 3.4, Albumin/Globulin Ratio 1.1 08/17/17 09:40: WBC 6.2, RBC 4.82, Hgb 13.4, Hct 39.9, MCV 82.8, MCH 27.8, MCHC 33.6, RDW 14.6 H, Plt Count 315, MPV 9.5, Gran % 51.1, Lymph % (Auto) 36.3 H, [place] % (Auto) 7.9 H, Eos % (Auto) 4.5, Baso % (Auto) 0.2, Gran # 3.19, Lymph # 2.3, [place] # 0.5, Eos # 0.3, Baso # 0.01 08/15/17 11:05: Urine Opiates Screen Negative, Urine Methadone Screen Negative, Ur Barbiturates Screen Negative, Ur Phencyclidine Scrn Positive H, Ur Amphetamines Screen Negative, U Benzodiazepines Scrn Negative, U Oth Cocaine Metabols Negative, U Cannabinoids Screen Negative 08/15/17 11:05: Urine Color Straw, Urine Appearance Slight-cloudy, Urine pH 7.0 , Ur Specific [place] <= 1.005, Urine Protein Negative, Urine Glucose (UA) Negative, Urine Ketones Negative, Urine Blood Negative, Urine Nitrate Negative, Urine Bilirubin Negative, Urine Urobilinogen 0.2, Ur Leukocyte Esterase Negative 08/15/17 10:53: Alcohol, Quantitative < 10 08/15/17 10:53: Salicylates < 1 L, Acetaminophen < 10.0 L 08/15/17 10:53: Sodium 142, Potassium 3.8, Chloride 108 H, Carbon Dioxide 26, Anion Gap 12, BUN 8, Creatinine 1.0, Est GFR ( Amer) > 60, Est GFR (Non- Af Amer) > 60, Random Glucose 102, Calcium 9.0, Total Bilirubin 0.3, AST 25, ALT 23, Alkaline Phosphatase 106, Total Creatine Kinase 289 H, CK-MB (CK-2) 0.9 , CK-MB (CK-2) % Cancelled, Total Protein 7.2, Albumin 3.8, Globulin 3.4, Albumin/Globulin Ratio 1.1 08/15/17 10:53: WBC 6.9, RBC 4.46, Hgb 12.5, Hct 37.0, MCV 83.0, MCH 28.0, MCHC 33.8, RDW 14.6 H, Plt Count 310, MPV 9.2, Gran % 60.6, Lymph % (Auto) 29.5, [place] % (Auto) 6.3 H, Eos % (Auto) 3.3, Baso % (Auto) 0.3, Gran # 4.17, Lymph # 2.0, [place] # 0.4, Eos # 0.2, Baso # 0.02 Vital Signs Temp Pulse Resp BP Pulse Ox 08/17/17 07:00 97.6 F 95 H 19 154/95 H 96 08/16/17 03:00 85 149/85 08/15/17 22:00 97.7 F 78 20 148/68 99 08/15/17 17:48 78 14 156/99 H 100 08/15/17 16:41 80 174/113 H 08/15/17 15:59 83 16 174/113 H 98 08/15/17 14:00 83 18 151/101 H 98 08/15/17 12:52 64 18 128/73 95 08/15/17 10:05 98.2 F 86 18 142/87 100 Temp Pulse Resp BP Pulse Ox 98.4 F 80 16 113/72 96 08/18/17 07:03 08/18/17 07:03 08/18/17 07:03 08/18/17 07:03 08/17/17 07:00 DSM 5 Symptoms Update: Shortly pt is 37yo AAF with long h/o mental illness, h/o multiple admissions in the psychiatric inpatient unit (mostly in [facility], recent admission to [facility] [place] less than two weeks ago), pt also has h/o substance use disorder, pt was admitted for evaluation and stabilization of disorganized, psychotic behavior, pt was found wondering on the streets with no shoes and pants on, pt was disorganized and psychotic, pt needed to be medicated in ED as well code Vlad was called over night in the psych inpatient unit, pt has chronic noncompliance with medications and follow up appointments. pt is still on 1:1 for unsteady gait, PT evaluated pt, PT five times a week. pt is disorganized, psychotic, keep repeating the same question all over again and again, very low volume, monotonic, pressured speech. d/w pt's mother, pt gave verbal consent, as per mother, pt lost twin boys during the delivery in 1999, then "everything started...," pt was very depressed after that. pt's mother asked about intermediate placement. pt seen next to the nursing station, pt was disorganized keep repeating herself... "I am better, I am better, I am better, do you want to see me? do you want to see me? how do I feel? how do I feel? how do I feel?" tried to shake this securities underwriter hand, then did not want to let her go. there is no meaningful conversation possible. Review of Systems: see Medical consult MSE: Pt deemed to be unreliable historian, pt is disorganized, poor personal hygiene , good ADLs, psychomotor agitation/retardation, speech was: mumbling, eye contact: no eye contact , mood described: "I am better, I am better, I am better , do you want to see me? do you want to see me? how do I feel? how do I feel? how do I feel?", affect: labile, mood incongruent, thought process:disorganized , thought content: pt denied SI/ HI, pt obviously paranoid, psychotic, disorganized, internally preoccupied, insight/judgment: impaired, impulses are unpredictable. Impression: schizoaffective disorder PCP abuse substance induced mood disorder alcohol use disorder tobacco abuse Treatment plan: Milieu/structure/supportive therapy Medical consult appreciated, see medical team note for more detailed info SW consultation for discharge plan and social issues Med management patient currently is on one-to-one observation for safety, risk of falls, disorganized behavior. Benztropine 2mg po amhs for EPS Haldol 10mg po amhs for psychosis would consider to start Haldol Dec, pt is noncompliant with meds and f/u appts Losartan [Cozaar] 50 mg PO DAILY Nicotine 7 mg/24 hr [Nicoderm CQ] 1 patch TD DAILY Family involvement Follow up on labs Will monitor closely SW evaluation for d/c planning Pt was educated about risk/benefits and alternatives of medications, coping strategies (safety plan, suicide prevention), relapse prevention, importance of follow up with psychiatrist and therapist, stay away from drugs/alcohol/smoking Medication Change: No (Haldol and Cogentin were increased yesterday) Medical Record Reviewed: Yes Goal/Treatment Plan - Goal/Treatment Plan Need for Continued Stay: Remain at risks for inpatient hospitalization, Severe depression anxiety, Discharge may exacerbated symptoms, Failed transitioning, Severe functional impairment Estimated Date of D/C: 08/25/17
[2017-08-18] MEDS: Levalbuterol 0.63 MG/3 ML Inhal Soln UD IH SCH ×2 (19:41→22:30)
[2017-08-19] MEDS: Pantoprazole 40 mg EC Tab PO SCH (09:22)
[2017-08-19] MEDS: Levalbuterol 0.63 MG/3 ML Inhal Soln UD IH SCH ×3 (10:27→22:00)
--- NOTE | 2017-08-19 14:34 | PCM.PYCHPN ---
Psychiatric Progress Note - Psychiatric Progress Note Patient seen today, length of contact: 30min Patient Chief Complaint: ""Doctor Ramonita, Doctor Ramonita,Doctor Ramonita,Doctor Ramonita,Doctor Ramonita,Doctor Ramonita" Medical Problems: asthma, obesity Diagnostic Results: 08/17/17 09:40 08/17/17 09:40 Lab Results 08/17/17 09:40: Sodium 140, Potassium 4.0, Chloride 106, Carbon Dioxide 24, Anion Gap 14, BUN 12, Creatinine 1.0, Est GFR ( Amer) > 60, Est GFR (Non- Af Amer) > 60, Random Glucose 117 H, Calcium 9.2, Magnesium 2.0, Total Bilirubin 0.3, Direct Bilirubin 0.3, AST 20, ALT 25, Alkaline Phosphatase 79, Total Protein 7.3, Albumin 3.9, Globulin 3.4, Albumin/Globulin Ratio 1.1 08/17/17 09:40: WBC 6.2, RBC 4.82, Hgb 13.4, Hct 39.9, MCV 82.8, MCH 27.8, MCHC 33.6, RDW 14.6 H, Plt Count 315, MPV 9.5, Gran % 51.1, Lymph % (Auto) 36.3 H, [place] % (Auto) 7.9 H, Eos % (Auto) 4.5, Baso % (Auto) 0.2, Gran # 3.19, Lymph # 2.3, [place] # 0.5, Eos # 0.3, Baso # 0.01 08/15/17 11:05: Urine Opiates Screen Negative, Urine Methadone Screen Negative, Ur Barbiturates Screen Negative, Ur Phencyclidine Scrn Positive H, Ur Amphetamines Screen Negative, U Benzodiazepines Scrn Negative, U Oth Cocaine Metabols Negative, U Cannabinoids Screen Negative 08/15/17 11:05: Urine Color Straw, Urine Appearance Slight-cloudy, Urine pH 7.0 , Ur Specific [place] <= 1.005, Urine Protein Negative, Urine Glucose (UA) Negative, Urine Ketones Negative, Urine Blood Negative, Urine Nitrate Negative, Urine Bilirubin Negative, Urine Urobilinogen 0.2, Ur Leukocyte Esterase Negative 08/15/17 10:53: Alcohol, Quantitative < 10 08/15/17 10:53: Salicylates < 1 L, Acetaminophen < 10.0 L 08/15/17 10:53: Sodium 142, Potassium 3.8, Chloride 108 H, Carbon Dioxide 26, Anion Gap 12, BUN 8, Creatinine 1.0, Est GFR ( Amer) > 60, Est GFR (Non- Af Amer) > 60, Random Glucose 102, Calcium 9.0, Total Bilirubin 0.3, AST 25, ALT 23, Alkaline Phosphatase 106, Total Creatine Kinase 289 H, CK-MB (CK-2) 0.9 , CK-MB (CK-2) % Cancelled, Total Protein 7.2, Albumin 3.8, Globulin 3.4, Albumin/Globulin Ratio 1.1 08/15/17 10:53: WBC 6.9, RBC 4.46, Hgb 12.5, Hct 37.0, MCV 83.0, MCH 28.0, MCHC 33.8, RDW 14.6 H, Plt Count 310, MPV 9.2, Gran % 60.6, Lymph % (Auto) 29.5, [place] % (Auto) 6.3 H, Eos % (Auto) 3.3, Baso % (Auto) 0.3, Gran # 4.17, Lymph # 2.0, [place] # 0.4, Eos # 0.2, Baso # 0.02 Vital Signs Temp Pulse Resp BP Pulse Ox 08/17/17 07:00 97.6 F 95 H 19 154/95 H 96 08/16/17 03:00 85 149/85 08/15/17 22:00 97.7 F 78 20 148/68 99 08/15/17 17:48 78 14 156/99 H 100 08/15/17 16:41 80 174/113 H 08/15/17 15:59 83 16 174/113 H 98 08/15/17 14:00 83 18 151/101 H 98 08/15/17 12:52 64 18 128/73 95 08/15/17 10:05 98.2 F 86 18 142/87 100 Temp Pulse Resp BP Pulse Ox 98.4 F 80 16 113/72 96 08/18/17 07:03 08/18/17 07:03 08/18/17 07:03 08/18/17 07:03 08/17/17 07:00 Temp Pulse Resp BP Pulse Ox 98.4 F 100 H 16 140/99 H 96 08/18/17 07:03 08/19/17 09:23 08/18/17 07:03 08/19/17 09:23 08/17/17 07:00 DSM 5 Symptoms Update: Shortly pt is 37yo AAF with long h/o mental illness, h/o multiple admissions in the psychiatric inpatient unit (mostly in [facility], recent admission to [facility] [place] less than two weeks ago), pt also has h/o substance use disorder, pt was admitted for evaluation and stabilization of disorganized, psychotic behavior, pt was found wondering on the streets with no shoes and pants on, pt was disorganized and psychotic, pt needed to be medicated in ED as well code Chu was called over night in the psych inpatient unit, pt has chronic noncompliance with medications and follow up appointments. today pt ambulates slowly but steady, still psychotic but not agitated, 1:1 was d/c. pt is very disorganized, needs constant redirection, for example pt tried to drink from the cup with the sealed top, and was not able to understand why water was not coming out, no option to have a meaningful conversation, pt keep repeating "Doctor Ramonita, Doctor Ramonita,Doctor Ramonita,Doctor Ramonita,Doctor Ramonita,Doctor Ramonita", then all of a sudden pt started to cry, when was asked why she is crying pt said "I am crying because you treating me so well", hospital frame sample and pattern supervisor provided patients with bibles, pt was carrying one of them, then pt tried to give it to this advertising copy writer, was crying saying "it is a gift for you". as per staff pt's behaviour is disorganized, pt needs constant redirection and supervision, tried to put whole cup of yogurt in her mouth, was redirected by staff. pt was in agreement to change haldol to zyprexa. Review of Systems: see Medical consult MSE: Pt deemed to be unreliable historian, pt is disorganized, poor personal hygiene , good ADLs, psychomotor agitation/retardation, speech was: mumbling, eye contact: no eye contact , mood described: "Doctor Ramonita, Doctor Ramonita,Doctor Ramonita, Doctor Ramonita,Doctor Ramonita,Doctor Ramonita", affect: labile, mood incongruent, thought process:disorganized, thought content: pt denied SI/ HI, pt obviously paranoid, psychotic, disorganized, internally preoccupied, insight/judgment: impaired, impulses are unpredictable. Impression: schizoaffective disorder PCP abuse substance induced mood disorder alcohol use disorder tobacco abuse Treatment plan: Milieu/structure/supportive therapy Medical consult appreciated, see medical team note for more detailed info consultation for discharge plan and social issues Med management patient currently is on one-to-one observation for safety, risk of falls, disorganized behavior. Benztropine 1mg po amhs for EPS Haldol d/c zyprexa 2.5mg po tid for psychosis would consider to start Haldol Dec, pt is noncompliant with meds and f/u appts Losartan [Cozaar] 50 mg PO DAILY Nicotine 7 mg/24 hr [Nicoderm CQ] 1 patch TD DAILY Family involvement Follow up on labs Will monitor closely evaluation for d/c planning Pt was educated about risk/benefits and alternatives of medications, coping strategies (safety plan, suicide prevention), relapse prevention, importance of follow up with psychiatrist and therapist, stay away from drugs/alcohol/smoking Medication Change: Yes (cogentin decresed, zyprexa started, haldol dc/) Medical Record Reviewed: Yes Consults ordered or reviewed: medical consult appreciated Goal/Treatment Plan - Goal/Treatment Plan Need for Continued Stay: Remain at risks for inpatient hospitalization, Severe depression anxiety, Discharge may exacerbated symptoms, Failed transitioning, Severe functional impairment Estimated Date of D/C: 08/25/17
[2017-08-19] MEDS: DiphenhydrAMINE 50 mg/ml Inj IM PRN (17:20)
--- NOTE | 2017-08-20 00:16 | PN ---
DATE: 08/19/2017 SUBJECTIVE: The patient is seen ambulating on 5B. The patient appears to be very cheerful. The patient is smiling and laughing. The patient was noticed to be interacting with . The patient is seen ambulating on the floor. The patient is interacting with the staff. Overnight nurse's notes were reviewed. The patient's affect was labile, periods of crying, unable to express herself; insight and judgment impaired and compromised. PHYSICAL EXAMINATION: VITAL SIGNS: T-max afebrile; heart rate 92, 80, 95, 93; blood pressure 154/95, 139 77, 113/72, 162/94 and 140/99; respiration 16; O2 sat 96%. HEENT AND NECK: Head examination, normocephalic and atraumatic. HEENT examination shows pink conjunctivae. Anicteric sclerae. No oropharyngeal lesion. No neck rigidity. CHEST: Kyphosis. LUNGS: Examination shows no rales, crackles or wheezing. CARDIOVASCULAR: S1 and S2, regular rhythm. ABDOMEN: Morbidly obese. GENITALIA: Female. RECTAL: Deferred. EXTREMITIES: Shows no pitting edema. No calf tenderness. No Homans' sign. MUSCULOSKELETAL: Examination shows a body mass index of 42. NEUROLOGIC: Cranial nerves II-XII grossly intact. Gait examination is independent. PSYCHIATRIC: As per Dr. Cheema's note. DIAGNOSTICS: From 08/17/2017 were reviewed. CBC and CMP are within normal limits. The patient's CT head was reviewed, which was ordered. The patient is seen by psychiatrist. Their recommendations were noted. IMPRESSION AND PLAN: 1. Acute psychosis with episodic agitation with disorganized thought and flat affect. 2. Schizoaffective disorder. 3. Active nicotine, alcohol and PCP abuse and dependence. 4. Substance-induced mood disorder. 5. Hypertension. 6. Transient tachycardia, probably secondary to anxiety. 7. Morbid obesity with elevated body mass index of 42. 8. Insomnia. 9. Psychosis with disorganized speech. 10. Behavioral disorder with agitation. 1. Acute psychosis with disorganized, tangential speech and thoughts with gait dysfunction. 2. Morbid obesity. 3. Insomnia. 4. Anxious, restless and agitated state with anxiety. 5. History of hypertension. 6. Morbid obesity with elevated body mass index of 42. 7. Urine drug screen positive for PCP. 8. Active nicotine, alcohol and drug abuse and dependence. 9. Paranoia and auditory, visual hallucination. 10. Poor personal hygiene. 11. Psychomotor agitation and retardation. 12. Substance-induced mood disorder. 13. Schizoaffective disorder. 14. Nicotine, alcohol PCP use abuse disorder. 15. History of questionable asthma. 1. Active psychosis with behavioral disorder. 2. Active psychosis with behavioral disorder with flat affect, disorganized speech, and tangential responses. 3. Morbid obesity. 4. Hypertension. 5. Tachycardia. 6. History of chronic noncompliance. 7. Active PCP use. 8. Active alcohol, tobacco abuse, and dependence. 9. Insomnia. 1. Questionable acute exacerbation of schizoaffective disorder with bizarre behavior and behavioral disorder. 2. Chronic noncompliance and poor compliance with medication. 3. Active PCP use. 4. Substance-induced mood disorder. 5. Alcohol and tobacco use and abuse disorder. 6. Morbid obesity. 7. Transient uncontrolled hypertension. 8. Questionable altered mental status secondary to underlying psychiatric problem versus medications. 9. Active nicotine, alcohol, and substance abuse disorder. 10. Insomnia. 11. Hypertension. 12. Hypovitaminosis D. 13. Active nicotine addiction. PLAN: At this time, the patient has been actively managed by Psychiatry. The patient's current medications as of today; Ativan 2 mg IM q. 6 hours p.r.n., Benadryl 50 mg IM q. 6 hours p.r.n., Cogentin 1 mg a.m. and at bedtime, Cozaar 25 mg daily, Drisdol 50,000 units weekly, Haldol 5 mg IM q. 6 hours p.r.n., nicotine patch 7 mg daily, Protonix 40 mg daily, Tylenol 650 q. 4 hours p.r.n., Xopenex nebulizer 0.63 mg every 6 hours, Zyprexa started today at 2.5 mg three times a day. The patient is also started on Cogentin 1 mg a.m. and at bedtime today. The patient has been ordered occupational therapy and physical therapy. The patient was seen by physical therapist. Their recommendation was noted. Their recommendation is to continue PT.. The patient was evaluated.. The patient's treatment goal was gait training, therapeutic exercises, activities, neuromuscular reeducation, patient/family education, and trial of PT. Dictated and electronically signed, not read. Signing off, Colt Irizarry MD [facility]
[2017-08-20] MEDS: DiphenhydrAMINE 50 mg/ml Inj IM PRN (01:35)
[2017-08-20] MEDS: Levalbuterol 0.63 MG/3 ML Inhal Soln UD IH SCH ×4 (03:00→21:50)
[2017-08-20] MEDS: Pantoprazole 40 mg EC Tab PO SCH (05:41)
--- NOTE | 2017-08-20 16:19 | PCM.PYCHPN ---
Psychiatric Progress Note - Psychiatric Progress Note Patient seen today, length of contact: 30min Patient Chief Complaint: ""Doctor Ramonita, Doctor Ramonita,Doctor Ramonita,Doctor Ramonita,Doctor Ramonita,Doctor Ramonita" Medical Problems: asthma, obesity Diagnostic Results: 08/17/17 09:40 08/17/17 09:40 Lab Results 08/17/17 09:40: Sodium 140, Potassium 4.0, Chloride 106, Carbon Dioxide 24, Anion Gap 14, BUN 12, Creatinine 1.0, Est GFR ( Amer) > 60, Est GFR (Non- Af Amer) > 60, Random Glucose 117 H, Calcium 9.2, Magnesium 2.0, Total Bilirubin 0.3, Direct Bilirubin 0.3, AST 20, ALT 25, Alkaline Phosphatase 79, Total Protein 7.3, Albumin 3.9, Globulin 3.4, Albumin/Globulin Ratio 1.1 08/17/17 09:40: WBC 6.2, RBC 4.82, Hgb 13.4, Hct 39.9, MCV 82.8, MCH 27.8, MCHC 33.6, RDW 14.6 H, Plt Count 315, MPV 9.5, Gran % 51.1, Lymph % (Auto) 36.3 H, [place] % (Auto) 7.9 H, Eos % (Auto) 4.5, Baso % (Auto) 0.2, Gran # 3.19, Lymph # 2.3, [place] # 0.5, Eos # 0.3, Baso # 0.01 08/15/17 11:05: Urine Opiates Screen Negative, Urine Methadone Screen Negative, Ur Barbiturates Screen Negative, Ur Phencyclidine Scrn Positive H, Ur Amphetamines Screen Negative, U Benzodiazepines Scrn Negative, U Oth Cocaine Metabols Negative, U Cannabinoids Screen Negative 08/15/17 11:05: Urine Color Straw, Urine Appearance Slight-cloudy, Urine pH 7.0 , Ur Specific [place] <= 1.005, Urine Protein Negative, Urine Glucose (UA) Negative, Urine Ketones Negative, Urine Blood Negative, Urine Nitrate Negative, Urine Bilirubin Negative, Urine Urobilinogen 0.2, Ur Leukocyte Esterase Negative 08/15/17 10:53: Alcohol, Quantitative < 10 08/15/17 10:53: Salicylates < 1 L, Acetaminophen < 10.0 L 08/15/17 10:53: Sodium 142, Potassium 3.8, Chloride 108 H, Carbon Dioxide 26, Anion Gap 12, BUN 8, Creatinine 1.0, Est GFR ( Amer) > 60, Est GFR (Non- Af Amer) > 60, Random Glucose 102, Calcium 9.0, Total Bilirubin 0.3, AST 25, ALT 23, Alkaline Phosphatase 106, Total Creatine Kinase 289 H, CK-MB (CK-2) 0.9 , CK-MB (CK-2) % Cancelled, Total Protein 7.2, Albumin 3.8, Globulin 3.4, Albumin/Globulin Ratio 1.1 08/15/17 10:53: WBC 6.9, RBC 4.46, Hgb 12.5, Hct 37.0, MCV 83.0, MCH 28.0, MCHC 33.8, RDW 14.6 H, Plt Count 310, MPV 9.2, Gran % 60.6, Lymph % (Auto) 29.5, [place] % (Auto) 6.3 H, Eos % (Auto) 3.3, Baso % (Auto) 0.3, Gran # 4.17, Lymph # 2.0, [place] # 0.4, Eos # 0.2, Baso # 0.02 Vital Signs Temp Pulse Resp BP Pulse Ox 08/17/17 07:00 97.6 F 95 H 19 154/95 H 96 08/16/17 03:00 85 149/85 08/15/17 22:00 97.7 F 78 20 148/68 99 08/15/17 17:48 78 14 156/99 H 100 08/15/17 16:41 80 174/113 H 08/15/17 15:59 83 16 174/113 H 98 08/15/17 14:00 83 18 151/101 H 98 08/15/17 12:52 64 18 128/73 95 08/15/17 10:05 98.2 F 86 18 142/87 100 Temp Pulse Resp BP Pulse Ox 98.4 F 80 16 113/72 96 08/18/17 07:03 08/18/17 07:03 08/18/17 07:03 08/18/17 07:03 08/17/17 07:00 Temp Pulse Resp BP Pulse Ox 98.4 F 100 H 16 140/99 H 96 08/18/17 07:03 08/19/17 09:23 08/18/17 07:03 08/19/17 09:23 08/17/17 07:00 DSM 5 Symptoms Update: Shortly pt is 37yo AAF with long h/o mental illness, h/o multiple admissions in the psychiatric inpatient unit (mostly in [facility] [place], [place] [facility] [place] pt also has h/o substance use disorder, pt was admitted for evaluation and stabilization of disorganized, psychotic behavior, pt was found wondering on the streets with no shoes and pants on, pt was disorganized and psychotic, pt needed to be medicated in ED as well code Chu was called over night in the psych inpatient unit, pt has chronic noncompliance with medications and follow up appointments. today pt ambulates slowly but steady, still psychotic, overnight patient needed to be medicated with Haldol I am. pt is very disorganized, needs constant redirection, for example pt tried to drink from the cup with the sealed top, and was not able to understand why water was not coming out, no option to have a meaningful conversation, pt keep repeating "Doctor Ramonita, Doctor Ramonita,Doctor Ramonita,Doctor Ramonita,Doctor Ramonita,Doctor Ramonita". as per staff pt's behaviour is disorganized, pt needs constant redirection and supervision, tried to put whole cup of yogurt in her mouth, was redirected by staff. pt was in agreement to change haldol to zyprexa. Review of Systems: see Medical consult MSE: Pt deemed to be unreliable historian, pt is disorganized, poor personal hygiene , good ADLs, psychomotor agitation/retardation, speech was: mumbling, eye contact: no eye contact , mood described: "Doctor Ramnoita, Doctor Ramonita,Doctor Ramonita, Doctor Ramonita,Doctor Ramonita,Doctor Ramonita", affect: labile, mood incongruent, thought process:disorganized, thought content: pt denied SI/ HI, pt obviously paranoid, psychotic, disorganized, internally preoccupied, insight/judgment: impaired, impulses are unpredictable. Impression: schizoaffective disorder PCP abuse substance induced mood disorder alcohol use disorder tobacco abuse Treatment plan: Milieu/structure/supportive therapy Medical consult appreciated, see medical team note for more detailed info SW consultation for discharge plan and social issues Med management patient currently is on one-to-one observation for safety, risk of falls, disorganized behavior. Benztropine 1mg po amhs for EPS Haldol d/c zyprexa 5mg po amhs for psychosis would consider to start Haldol Dec, pt is noncompliant with meds and f/u appts Losartan [Cozaar] 50 mg PO DAILY Nicotine 7 mg/24 hr [Nicoderm CQ] 1 patch TD DAILY Family involvement Follow up on labs Will monitor closely SW evaluation for d/c planning Pt was educated about risk/benefits and alternatives of medications, coping strategies (safety plan, suicide prevention), relapse prevention, importance of follow up with psychiatrist and therapist, stay away from drugs/alcohol/smoking Medication Change: Yes (Zyprexa was increased) Medical Record Reviewed: Yes Consults ordered or reviewed: medical consult appreciated Goal/Treatment Plan - Goal/Treatment Plan Need for Continued Stay: Remain at risks for inpatient hospitalization, Severe depression anxiety, Discharge may exacerbated symptoms, Failed transitioning, Severe functional impairment Estimated Date of D/C: 08/25/17
[2017-08-20] MEDS: OLANZapine 5 mg Disintegrating Tab PO SCH (17:28)
--- NOTE | 2017-08-21 00:41 | PN ---
DATE: 08/20/2017 SUBJECTIVE: The patient is seen ambulating on the floor. The patient is drinking water. The patient is pleasant. The patient's speech is clearer today. The patient appears to be less groggy and less sedated. The patient is alert, awake, responsive. Follows command. Ambulating independently. OBJECTIVE: VITAL SIGNS: Reviewed. The patient's T-max is afebrile. Heart rate around 90, 94, 96. Blood pressure was slightly elevated, systolic blood pressure was around 140s and diastolic was in high 80s and 90s and morning blood pressure was also reviewed. Respirations 18-20. O2 sat was within normal limits. HEAD: The patient's head examination is normocephalic, atraumatic. EENT: Examination shows pink conjunctivae. Anicteric sclerae. No oropharyngeal lesion. No neck rigidity. CHEST: Kyphosis. LUNGS: Shows no rales, crackles or wheezing. CARDIOVASCULAR: S1, S2, regular rhythm. ABDOMEN: Obese. Positive bowel sounds. GENITALIA: Female. RECTAL: Deferred. EXTREMITIES: Shows nonpitting swelling of the legs. No calf tenderness. No Manjula's signs. MUSCULOSKELETAL: Shows an elevated body mass index. NEUROLOGIC: The patient is much more alert, awake, responsive. The patient appears to be pleasant and answering questions. DIAGNOSTIC DATA: None from today. IMPRESSION: 1. Acute exacerbation of schizophrenia and psychosis. 2. Questionable and possible behavioral disorder. 3. Noncompliance and poor compliance. 4. Super morbid obesity. 5. Active nicotine, alcohol and drug abuse and PCP abuse and dependence. 6. Noncompliance. 7. Hypertension. 8. Tachycardia. 9. History of asthma. 10. Hypovitaminosis D. 17. Bilateral lower extremity trace venous stasis. 18. Insomnia. 19. Hypertension. 1. Acute psychosis with episodic agitation with disorganized thought and flat affect. 2. Schizoaffective disorder. 3. Active nicotine, alcohol and PCP abuse and dependence. 4. Substance-induced mood disorder. 5. Hypertension. 6. Transient tachycardia, probably secondary to anxiety. 7. Morbid obesity with elevated body mass index of 42. 8. Insomnia. 9. Psychosis with disorganized speech. 10. Behavioral disorder with agitation. 1. Acute psychosis with disorganized, tangential speech and thoughts with gait dysfunction. 2. Morbid obesity. 3. Insomnia. 4. Anxious, restless and agitated state with anxiety. 5. History of hypertension. 6. Morbid obesity with elevated body mass index of 42. 7. Urine drug screen positive for PCP. 8. Active nicotine, alcohol and drug abuse and dependence. 9. Paranoia and auditory, visual hallucination. 10. Poor personal hygiene. 11. Psychomotor agitation and retardation. 12. Substance-induced mood disorder. 13. Schizoaffective disorder. 14. Nicotine, alcohol PCP use abuse disorder. 15. History of questionable asthma. 1. Active psychosis with behavioral disorder. 2. Active psychosis with behavioral disorder with flat affect, disorganized speech, and tangential responses. 3. Morbid obesity. 4. Hypertension. 5. Tachycardia. 6. History of chronic noncompliance. 7. Active PCP use. 8. Active alcohol, tobacco abuse, and dependence. 9. Insomnia. 1. Questionable acute exacerbation of schizoaffective disorder with bizarre behavior and behavioral disorder. 2. Chronic noncompliance and poor compliance with medication. 3. Active PCP use. 4. Substance-induced mood disorder. 5. Alcohol and tobacco use and abuse disorder. 6. Morbid obesity. 7. Transient uncontrolled hypertension. 8. Questionable altered mental status secondary to underlying psychiatric problem versus medications. 9. Active nicotine, alcohol, and substance abuse disorder. 10. Insomnia. 11. Hypertension. 12. Hypovitaminosis D. 13. Active nicotine addiction. PLAN: At this time, the patient is to be managed as per Psychiatry. The patient's blood pressure may be elevated secondary to underlying patient's psychiatric issues and possible behavioral disorder. At present, the patient will be followed closely with monitoring of the patient's medical issues and hemodynamic status. Upon discharge, the patient needs close medical followup with the patient's primary care physician, Dr. Bandar Fritz. He will need close psychiatric followup upon discharge. Dictated and electronically signed, not read. Colt Irizarry MD MTDD
[2017-08-21] MEDS: Levalbuterol 0.63 MG/3 ML Inhal Soln UD IH SCH ×4 (01:14→20:01)
[2017-08-21] MEDS: Pantoprazole 40 mg EC Tab PO SCH (05:12)
[2017-08-21] MEDS: OLANZapine 5 mg Disintegrating Tab PO SCH ×2 (08:14→20:02)
--- NOTE | 2017-08-21 15:20 | PCM.PYCHPN ---
Psychiatric Progress Note - Psychiatric Progress Note Patient seen today, length of contact: 30min Patient Chief Complaint: ""Doctor Ramonita, Doctor Ramonita,Doctor Ramonita,Doctor Ramonita,Doctor Ramonita,Doctor Ramonita" Medical Problems: asthma, obesity Diagnostic Results: 08/17/17 09:40 08/17/17 09:40 Lab Results 08/17/17 09:40: Sodium 140, Potassium 4.0, Chloride 106, Carbon Dioxide 24, Anion Gap 14, BUN 12, Creatinine 1.0, Est GFR ( Amer) > 60, Est GFR (Non- Af Amer) > 60, Random Glucose 117 H, Calcium 9.2, Magnesium 2.0, Total Bilirubin 0.3, Direct Bilirubin 0.3, AST 20, ALT 25, Alkaline Phosphatase 79, Total Protein 7.3, Albumin 3.9, Globulin 3.4, Albumin/Globulin Ratio 1.1 08/17/17 09:40: WBC 6.2, RBC 4.82, Hgb 13.4, Hct 39.9, MCV 82.8, MCH 27.8, MCHC 33.6, RDW 14.6 H, Plt Count 315, MPV 9.5, Gran % 51.1, Lymph % (Auto) 36.3 H, [place] % (Auto) 7.9 H, Eos % (Auto) 4.5, Baso % (Auto) 0.2, Gran # 3.19, Lymph # 2.3, [place] # 0.5, Eos # 0.3, Baso # 0.01 08/15/17 11:05: Urine Opiates Screen Negative, Urine Methadone Screen Negative, Ur Barbiturates Screen Negative, Ur Phencyclidine Scrn Positive H, Ur Amphetamines Screen Negative, U Benzodiazepines Scrn Negative, U Oth Cocaine Metabols Negative, U Cannabinoids Screen Negative 08/15/17 11:05: Urine Color Straw, Urine Appearance Slight-cloudy, Urine pH 7.0 , Ur Specific [place] <= 1.005, Urine Protein Negative, Urine Glucose (UA) Negative, Urine Ketones Negative, Urine Blood Negative, Urine Nitrate Negative, Urine Bilirubin Negative, Urine Urobilinogen 0.2, Ur Leukocyte Esterase Negative 08/15/17 10:53: Alcohol, Quantitative < 10 08/15/17 10:53: Salicylates < 1 L, Acetaminophen < 10.0 L 08/15/17 10:53: Sodium 142, Potassium 3.8, Chloride 108 H, Carbon Dioxide 26, Anion Gap 12, BUN 8, Creatinine 1.0, Est GFR ( Amer) > 60, Est GFR (Non- Af Amer) > 60, Random Glucose 102, Calcium 9.0, Total Bilirubin 0.3, AST 25, ALT 23, Alkaline Phosphatase 106, Total Creatine Kinase 289 H, CK-MB (CK-2) 0.9 , CK-MB (CK-2) % Cancelled, Total Protein 7.2, Albumin 3.8, Globulin 3.4, Albumin/Globulin Ratio 1.1 08/15/17 10:53: WBC 6.9, RBC 4.46, Hgb 12.5, Hct 37.0, MCV 83.0, MCH 28.0, MCHC 33.8, RDW 14.6 H, Plt Count 310, MPV 9.2, Gran % 60.6, Lymph % (Auto) 29.5, [place] % (Auto) 6.3 H, Eos % (Auto) 3.3, Baso % (Auto) 0.3, Gran # 4.17, Lymph # 2.0, [place] # 0.4, Eos # 0.2, Baso # 0.02 Vital Signs Temp Pulse Resp BP Pulse Ox 08/17/17 07:00 97.6 F 95 H 19 154/95 H 96 08/16/17 03:00 85 149/85 08/15/17 22:00 97.7 F 78 20 148/68 99 08/15/17 17:48 78 14 156/99 H 100 08/15/17 16:41 80 174/113 H 08/15/17 15:59 83 16 174/113 H 98 08/15/17 14:00 83 18 151/101 H 98 08/15/17 12:52 64 18 128/73 95 08/15/17 10:05 98.2 F 86 18 142/87 100 Temp Pulse Resp BP Pulse Ox 98.4 F 80 16 113/72 96 08/18/17 07:03 08/18/17 07:03 08/18/17 07:03 08/18/17 07:03 08/17/17 07:00 Temp Pulse Resp BP Pulse Ox 98.4 F 100 H 16 140/99 H 96 08/18/17 07:03 08/19/17 09:23 08/18/17 07:03 08/19/17 09:23 08/17/17 07:00 Temp Pulse Resp BP Pulse Ox 98.4 F 83 16 141/92 H 96 08/18/17 07:03 08/21/17 08:15 08/18/17 07:03 08/21/17 08:15 08/17/17 07:00 DSM 5 Symptoms Update: Shortly pt is 37yo AAF with long h/o mental illness, h/o multiple admissions in the psychiatric inpatient unit (mostly [place] [facility] [place], [place] [facility] [place] pt also has h/o substance use disorder, pt was admitted for evaluation and stabilization of disorganized, psychotic behavior, pt was found wondering on the streets with no shoes and pants on, pt was disorganized and psychotic, pt needed to be medicated in ED as well code Chu was called over night in the psych inpatient unit, pt has chronic noncompliance with medications and follow up appointments. today pt ambulates steady, still psychotic, yesterday overnight patient needed to be medicated with Haldol IM. pt seems to have some improvement with disorganized behavior and thoughts but still pt would repeat the same statement all over and over again.."Doctor Ramonita, Doctor Ramonita,Doctor Ramonita,Doctor Ramonita,Doctor Ramonita,Doctor Ramonita"., then would mumble something. pt is very disorganized, needs constant redirection, for example pt tried to drink from the cup with the sealed top. as per staff pt's behaviour is disorganized, pt needs constant redirection and supervision, tried to put whole cup of yogurt in her mouth, was redirected by staff. as per staff pt takes meds, no behavioral incidents. Review of Systems: see Medical consult MSE: Pt deemed to be unreliable historian, pt is disorganized, poor personal hygiene , good ADLs, psychomotor agitation/retardation, speech was: mumbling, eye contact: no eye contact , mood described: "Doctor Ramonita, Doctor Ramonita,Doctor Ramonita, Doctor Ramonita,Doctor Ramonita,Doctor Ramonita", affect: labile, mood incongruent, thought process:disorganized, thought content: pt denied SI/ HI, pt obviously paranoid, psychotic, disorganized, internally preoccupied, insight/judgment: impaired, impulses are unpredictable. Impression: schizoaffective disorder PCP abuse substance induced mood disorder alcohol use disorder tobacco abuse Treatment plan: Milieu/structure/supportive therapy Medical consult appreciated, see medical team note for more detailed info SW consultation for discharge plan and social issues Med management patient currently is on one-to-one observation for safety, risk of falls, disorganized behavior. Benztropine 1mg po amhs for EPS Haldol d/c zyprexa 5mg po amhs for psychosis would consider to start Haldol Dec, pt is noncompliant with meds and f/u appts Losartan [Cozaar] 50 mg PO DAILY Nicotine 7 mg/24 hr [Nicoderm CQ] 1 patch TD DAILY Family involvement Follow up on labs Will monitor closely evaluation for d/c planning Pt was educated about risk/benefits and alternatives of medications, coping strategies (safety plan, suicide prevention), relapse prevention, importance of follow up with psychiatrist and therapist, stay away from drugs/alcohol/smoking Medication Change: Yes (Zyprexa was increased) Medication Change: Yes (Zyprexa was increased yesterday) Medical Record Reviewed: Yes Consults ordered or reviewed: medical consult appreciated Goal/Treatment Plan - Goal/Treatment Plan Need for Continued Stay: Remain at risks for inpatient hospitalization, Severe depression anxiety, Discharge may exacerbated symptoms, Failed transitioning, Severe functional impairment Estimated Date of D/C: 08/25/17
--- NOTE | 2017-08-21 19:45 | PN ---
DATE: 08/21/2017 SUBJECTIVE: The patient is seen , appears to be very cheerful much more awake. Speech is much clear. The patient is alert, awake, responsive. The patient's overnight nurse's notes were reviewed. The patient denies any chest pain. Denies shortness of breath. Denies nausea, vomiting, diarrhea, or constipation. Denies hemoptysis, melena. Denies hematochezia. REVIEW OF SYSTEMS: A 13-system review was negative and pertinent positive and negative dictated above. PHYSICAL EXAMINATION: VITAL SIGNS: T-max afebrile, heart rate 78 to 83, blood pressure 134/93, 141/92, respirations 18 to 20, O2 sat is high 90s to 100%. HEENT: Head examination, normocephalic, atraumatic. HEENT examination shows pink conjunctivae. Anicteric sclerae. No oropharyngeal lesion. NECK: No neck rigidity. CHEST: Symmetrical. Lung examination shows no rales, crackles or wheezing. CARDIOVASCULAR: S1, S2, regular rhythm. ABDOMEN: Obese, protuberant. GENITALIA: Female. RECTAL: Examination is deferred. EXTREMITIES: Show no pitting edema, questionable chronic swelling of the lower extremity. MUSCULOSKELETAL: Examination shows an elevated body mass index. NEUROLOGIC: The patient is responsive, alert, awake, responsive. PSYCHIATRIC: Examination as per the psychiatrist's note. GAIT: Independent. DIAGNOSTICS: None. IMAGING STUDIES: None. IMPRESSION: 1. Acute exacerbation of schizophrenia with psychosis. 2. Active nicotine, alcohol, polysubstance abuse, and PCP abuse. 3. Hypertension. 4. Hypovitaminosis D. 5. Morbid obesity. 6. Questionable asthma. 7. Psychosis. 8. History of poor compliance and noncompliance with medication. 9. Questionable behavioral disorder. 10. Insomnia. 1. Acute exacerbation of schizophrenia and psychosis. 2. Questionable and possible behavioral disorder. 3. Noncompliance and poor compliance. 4. Super morbid obesity. 5. Active nicotine, alcohol and drug abuse and PCP abuse and dependence. 6. Noncompliance. 7. Hypertension. 8. Tachycardia. 9. History of asthma. 10. Hypovitaminosis D. 17. Bilateral lower extremity trace venous stasis. 18. Insomnia. 19. Hypertension. 1. Acute psychosis with episodic agitation with disorganized thought and flat affect. 2. Schizoaffective disorder. 3. Active nicotine, alcohol and PCP abuse and dependence. 4. Substance-induced mood disorder. 5. Hypertension. 6. Transient tachycardia, probably secondary to anxiety. 7. Morbid obesity with elevated body mass index of 42. 8. Insomnia. 9. Psychosis with disorganized speech. 10. Behavioral disorder with agitation. 1. Acute psychosis with disorganized, tangential speech and thoughts with gait dysfunction. 2. Morbid obesity. 3. Insomnia. 4. Anxious, restless and agitated state with anxiety. 5. History of hypertension. 6. Morbid obesity with elevated body mass index of 42. 7. Urine drug screen positive for PCP. 8. Active nicotine, alcohol and drug abuse and dependence. 9. Paranoia and auditory, visual hallucination. 10. Poor personal hygiene. 11. Psychomotor agitation and retardation. 12. Substance-induced mood disorder. 13. Schizoaffective disorder. 14. Nicotine, alcohol PCP use abuse disorder. 15. History of questionable asthma. 1. Active psychosis with behavioral disorder. 2. Active psychosis with behavioral disorder with flat affect, disorganized speech, and tangential responses. 3. Morbid obesity. 4. Hypertension. 5. Tachycardia. 6. History of chronic noncompliance. 7. Active PCP use. 8. Active alcohol, tobacco abuse, and dependence. 9. Insomnia. 1. Questionable acute exacerbation of schizoaffective disorder with bizarre behavior and behavioral disorder. 2. Chronic noncompliance and poor compliance with medication. 3. Active PCP use. 4. Substance-induced mood disorder. 5. Alcohol and tobacco use and abuse disorder. 6. Morbid obesity. 7. Transient uncontrolled hypertension. 8. Questionable altered mental status secondary to underlying psychiatric problem versus medications. 9. Active nicotine, alcohol, and substance abuse disorder. 10. Insomnia. 11. Hypertension. 12. Hypovitaminosis D. 13. Active nicotine addiction. PLAN: At this time, the patient is to be continued on the therapeutic intervention as per the MAR and the medications ordered. The patient has also been ordered physical therapy, ambulation therapy, gait training. At present, the patient is medically stable from my perspective. The patient needs to be further managed by psychiatrist. The patient can be followed up as an outpatient upon discharge with her medical doctor, Dr. Portillo . The patient was emphasized and educated about continuation of the medications and compliance with medications. The patient was advised weight loss. The patient was counseled about cessation of smoking, alcohol, and recreational drug use. Dictated and electronically signed. not read. Colt Irizarry MD [facility]
[2017-08-22] MEDS: Levalbuterol 0.63 MG/3 ML Inhal Soln UD IH SCH ×4 (01:19→21:50)
[2017-08-22] MEDS: Pantoprazole 40 mg EC Tab PO SCH (06:13)
[2017-08-22] MEDS: OLANZapine 5 mg Disintegrating Tab PO SCH ×2 (08:11→18:29)
--- NOTE | 2017-08-22 09:12 | PCM.PYCHPN ---
Psychiatric Progress Note - Psychiatric Progress Note Patient seen today, length of contact: 25 min Patient Chief Complaint: "happy" and that she "prays to god every morning for a chance to reinvent herself daily" Problems Identified/Issues Discussed: I reviewed recent notes and met with patient in the dayroom. She is well groomed and quite pleasant. Oriented to location and year however indicated that the month was still July. Speech is rushed at times. Reports her mood is "happy" and that she "prays to god every morning for a chance to reinvent herself daily". Patient is talkative and rambles but can be redirected. Thought process is tangential and overinclusive. Affect is a little labile however she is in good control. Denies AVH, SI or HI. Patient denies any new discomfort or pain and indicates she has been sleeping well. She has been tolerating medications and denies side effects. Nursing notes indicate that patient has been elevated and talkative. She is becoming more organized but still rambles (which this provider agrees with). Can be loud and disruptive at times. There were no behavioral issues overnight. Diagnostic Results: schizoaffective disorder PCP abuse substance induced mood disorder alcohol use disorder tobacco abuse Medication Change: No ( ) Medical Record Reviewed: Yes Mental Status Examination - Cognitive Function Attention: Poor Concentration: Poor Association: Loose - Mood Mood: Other ("happy" and that she "prays to god every morning for a chance to reinvent herself daily") - Affect Affect: Broad - Speech Speech: Appropriate - Formal Thought Process Formal Thought Process: Loosening of associations - Suicidal Ideation Suicidal Ideation: No - Homicidal Ideation Homicidal Ideation: No Goal/Treatment Plan - Goal/Treatment Plan Need for Continued Stay: Remain at risks for inpatient hospitalization, Severe depression anxiety, Discharge may exacerbated symptoms, Failed transitioning, Severe functional impairment Progress Toward Problem(s) and Goals/Treatment Plan: * c/w current tx and plan * No new weekend labs thus far * Vitals reviewed and noted below: Selected Entries 08/18/17 08/18/17 08/19/17 07:03 16:00 09:23 Temperature 98.4 F Pulse Rate 80 93 H 100 H Respiratory 16 Rate Blood Pressure 113/72 162/94 H 140/99 H 08/19/17 08/20/17 08/20/17 15:00 09:56 16:35 Temperature Pulse Rate 78 87 Respiratory Rate Blood Pressure 120/77 138/82 134/93 H 08/21/17 08:15 Temperature Pulse Rate 83 Respiratory Rate Blood Pressure 141/92 H Estimated Date of D/C: 08/25/17
[2017-08-23] MEDS: Levalbuterol 0.63 MG/3 ML Inhal Soln UD IH SCH ×4 (03:00→22:15)
[2017-08-23] MEDS: Pantoprazole 40 mg EC Tab PO SCH (07:04)
[2017-08-23] MEDS: OLANZapine 5 mg Disintegrating Tab PO SCH ×2 (08:47→15:57)
[2017-08-23] MEDS: Ergocalciferol 50,000 Intl Units Cap PO SCH (09:11)
--- NOTE | 2017-08-23 09:12 | PCM.PYCHPN ---
Psychiatric Progress Note - Psychiatric Progress Note Patient seen today, length of contact: 25 min Patient Chief Complaint: "feeling good" Problems Identified/Issues Discussed: I reviewed recent notes and met with patient at bedside. She is well groomed and remains quite pleasant. Oriented to location, month and year today. Speech is still rushed at times. Reports that her mood is "feeling good". Patient is talkative and overinclusive but can be redirected. Thought process remains a little tangential. Affect is labile however she is generally happy and in good control. Denies AVH, SI or HI. Patient denies any new discomfort or pain and indicates she has been sleeping well. She continues to tolerate her medications and denies side effects. Nursing notes indicate that patient has been elevated and talkative. She is improving. She is becoming more organized and less pressured but still rambles. Can be loud and disruptive at times. There were no major behavioral issues over the weekend. Diagnostic Results: schizoaffective disorder PCP abuse substance induced mood disorder alcohol use disorder tobacco abuse Medication Change: No ( ) Medical Record Reviewed: Yes Mental Status Examination - Cognitive Function Orientation: Person, Place Attention: Poor Concentration: Poor Association: Loose - Mood Mood: Other ( "feeling good") - Affect Affect: Broad - Speech Speech: Appropriate (rushed but less pressured) - Formal Thought Process Formal Thought Process: Loosening of associations (overinclusive) - Suicidal Ideation Suicidal Ideation: No - Homicidal Ideation Homicidal Ideation: No Goal/Treatment Plan - Goal/Treatment Plan Need for Continued Stay: Remain at risks for inpatient hospitalization, Severe depression anxiety, Discharge may exacerbated symptoms, Failed transitioning, Severe functional impairment Progress Toward Problem(s) and Goals/Treatment Plan: * c/w current tx and plan * No new weekend labs thus far * Vitals reviewed and noted below: Selected Entries 08/22/17 08/22/17 08/22/17 06:53 06:59 17:28 Temperature 98.3 F Pulse Rate 93 H 92 H 102 H Respiratory 20 Rate Blood Pressure 147/101 H 147/101 H 137/84 O2 Sat by Pulse 96 Oximetry Oxygen Delivery Room Air Method 08/22/17 18:10 Temperature Pulse Rate 102 H Respiratory Rate Blood Pressure 137/84 O2 Sat by Pulse Oximetry Oxygen Delivery Method Estimated Date of D/C: 08/25/17
--- NOTE | 2017-08-23 20:17 | PN ---
DATE: 08/23/2017 SUBJECTIVE: The patient is seen in the day room with activity group. The patient is sitting up in the chair. The patient is alert, awake, responsive. The patient appears to be very cheerful and happy. The patient's nurses# notes from overnight were noted. The patient is complaining of tooth problem, which has been going on for a awhile and the patient states that she has an appointment with the dentist tomorrow and wants to be discharged. I have advised the patient to speak to the psychiatrist regarding her discharge, so she can follow up with the dentist. The patient denies chest pain. Denies shortness of breath. Denies wheezing. Denies nausea, denies vomiting, diarrhea or constipation. The patient states that she has slept well. PHYSICAL EXAMINATION: VITAL SIGNS: T-max afebrile, heart rate 84, heart rate has slowed down. The patient's blood pressure has also improved to 120/81 in the last 24 hours since the patient's Cozaar was increased. DIAGNOSTIC DATA: None from today. The patient was seen by the [facility] psychiatrist, Dr. Phillips. IMPRESSION: 1. Chronic tooth problem and probably poor dental hygiene with dental caries. 2. Acute exacerbation of schizoaffective disorder. 3. Hypertension. 4. Tachycardia. 5. Morbid obesity with elevated body mass index. 6. History of poor compliance and noncompliance. 7. History of behavioral disorder. 8. Active nicotine, alcohol, and recreational drug use and dependence, and history of PCP use. 9. Bilateral nonpitting lower extremity venous stasis. 10. History of questionable chronic obstructive pulmonary disease versus asthma. 11. Hypovitaminosis D. 1. Acute exacerbation of schizoaffective disorder with psychosis and behavioral disturbances. 2. Active nicotine, alcohol, PCP, polysubstance abuse and dependence with substance-induced mood disorder. 3. Morbid obesity. 4. Hypertension. 5. Asthma. 6. Nicotine dependence. 7. Transient tachycardia. 8. Obesity with elevated body mass index of greater than 48. 9. Hypertensive cardiovascular disease. 1. Acute exacerbation of schizophrenia with psychosis. 2. Active nicotine, alcohol, polysubstance abuse, and PCP abuse. 3. Hypertension. 4. Hypovitaminosis D. 5. Morbid obesity. 6. Questionable asthma. 7. Psychosis. 8. History of poor compliance and noncompliance with medication. 9. Questionable behavioral disorder. 10. Insomnia. 1. Acute exacerbation of schizophrenia and psychosis. 2. Questionable and possible behavioral disorder. 3. Noncompliance and poor compliance. 4. Super morbid obesity. 5. Active nicotine, alcohol and drug abuse and PCP abuse and dependence. 6. Noncompliance. 7. Hypertension. 8. Tachycardia. 9. History of asthma. 10. Hypovitaminosis D. 17. Bilateral lower extremity trace venous stasis. 18. Insomnia. 19. Hypertension. 1. Acute psychosis with episodic agitation with disorganized thought and flat affect. 2. Schizoaffective disorder. 3. Active nicotine, alcohol and PCP abuse and dependence. 4. Substance-induced mood disorder. 5. Hypertension. 6. Transient tachycardia, probably secondary to anxiety. 7. Morbid obesity with elevated body mass index of 42. 8. Insomnia. 9. Psychosis with disorganized speech. 10. Behavioral disorder with agitation. 1. Acute psychosis with disorganized, tangential speech and thoughts with gait dysfunction. 2. Morbid obesity. 3. Insomnia. 4. Anxious, restless and agitated state with anxiety. 5. History of hypertension. 6. Morbid obesity with elevated body mass index of 42. 7. Urine drug screen positive for PCP. 8. Active nicotine, alcohol and drug abuse and dependence. 9. Paranoia and auditory, visual hallucination. 10. Poor personal hygiene. 11. Psychomotor agitation and retardation. 12. Substance-induced mood disorder. 13. Schizoaffective disorder. 14. Nicotine, alcohol PCP use abuse disorder. 15. History of questionable asthma. 1. Active psychosis with behavioral disorder. 2. Active psychosis with behavioral disorder with flat affect, disorganized speech, and tangential responses. 3. Morbid obesity. 4. Hypertension. 5. Tachycardia. 6. History of chronic noncompliance. 7. Active PCP use. 8. Active alcohol, tobacco abuse, and dependence. 9. Insomnia. 1. Questionable acute exacerbation of schizoaffective disorder with bizarre behavior and behavioral disorder. 2. Chronic noncompliance and poor compliance with medication. 3. Active PCP use. 4. Substance-induced mood disorder. 5. Alcohol and tobacco use and abuse disorder. 6. Morbid obesity. 7. Transient uncontrolled hypertension. 8. Questionable altered mental status secondary to underlying psychiatric problem versus medications. 9. Active nicotine, alcohol, and substance abuse disorder. 10. Insomnia. 11. Hypertension. 12. Hypovitaminosis D. 13. Active nicotine addiction. PLAN: At this time, the patient wishes to be discharged in a.m. for a follow up with the dentist regarding her dental problems. Patient is a medically stable for discharge from our perspective as long as the patient is cleared by Psychiatry. The patient has been advised immediate and close followup with the patient's primary care physician and psychiatrist right away upon discharge, which she acknowledged to understand. The patient has been also advised and counseled about cessation of smoking, alcohol and recreational drug use. The patient has been advised weight loss, exercise. The patient has also been advised outpatient [employer] followup in addition to above. Dictated and electronically signed, not read. Colt Irizarry MD MTDD
[2017-08-24] MEDS: Pantoprazole 40 mg EC Tab PO SCH (05:25)
[2017-08-24] MEDS: OLANZapine 5 mg Disintegrating Tab PO SCH ×2 (07:57→17:37)
[2017-08-24] MEDS: Levalbuterol 0.63 MG/3 ML Inhal Soln UD IH SCH ×3 (08:33→20:29)
--- NOTE | 2017-08-24 10:07 | PN ---
DATE: 08/22/2017 SUBJECTIVE: The patient is seen sitting up in the dayroom on Psychiatry floor, getting a nebulizer medication. The patient is out of bed to chair. The patient is alert, awake, responsive. Overnight nurse's notes were reviewed. The patient slept well. The patient was compliant with good appetite. The patient's behavior was cooperative. Mood is calm. Affect congruent. The patient still has rambling speech. The patient was found to be alert, awake, oriented x3. The patient is improved with the thought process. The patient is more compliant attending group. OBJECTIVE: VITAL SIGNS: T-max 98.3, heart rate 83-92, blood pressure 147, 101, 141, 92, respiration 20, O2 sat 96%. The patient's last 24-48 hours blood pressure readings were reviewed. HEAD: Examination normocephalic, atraumatic. EENT: Examination shows pink conjunctivae. Anicteric sclerae. No oropharyngeal lesion. No neck rigidity. CHEST: Examination symmetrical. LUNGS: Examination shows no rales, crackles or wheezing. CARDIOVASCULAR: Examination shows S1, S2, regular rhythm. ABDOMEN: Obese. Positive bowel sounds. GENITALIA: Female. RECTAL: Examination was deferred. EXTREMITY: Shows chronic nonpitting edema of the lower extremity. Chronic swelling of the lower extremity. MUSCULOSKELETAL: Examination shows a body mass index of 48.4. Cranial nerves II-XII intact. Gait examination is independent. VASCULAR: Examination palpate pulses. PSYCHIATRIC: Examination as per psychiatry evaluation. DIAGNOSTIC DATA: None. Microbiology negative. Blood bank noted. Reports reviewed including imaging, cardiovascular, general and psychosocial. The patient seen by Psychiatry yesterday. According to the Psychiatry, the patient is still psychotic. The patient required intermittent Haldol IM. Behavior is disorganized. Needs constant redirection and supervision. IMPRESSION: 1. Acute exacerbation of schizoaffective disorder with psychosis and behavioral disturbances. 2. Active nicotine, alcohol, PCP, polysubstance abuse and dependence with substance-induced mood disorder. 3. Morbid obesity. 4. Hypertension. 5. Asthma. 6. Nicotine dependence. 7. Transient tachycardia. 8. Obesity with elevated body mass index of greater than 48. 9. Hypertensive cardiovascular disease. 1. Acute exacerbation of schizophrenia with psychosis. 2. Active nicotine, alcohol, polysubstance abuse, and PCP abuse. 3. Hypertension. 4. Hypovitaminosis D. 5. Morbid obesity. 6. Questionable asthma. 7. Psychosis. 8. History of poor compliance and noncompliance with medication. 9. Questionable behavioral disorder. 10. Insomnia. 1. Acute exacerbation of schizophrenia and psychosis. 2. Questionable and possible behavioral disorder. 3. Noncompliance and poor compliance. 4. Super morbid obesity. 5. Active nicotine, alcohol and drug abuse and PCP abuse and dependence. 6. Noncompliance. 7. Hypertension. 8. Tachycardia. 9. History of asthma. 10. Hypovitaminosis D. 17. Bilateral lower extremity trace venous stasis. 18. Insomnia. 19. Hypertension. 1. Acute psychosis with episodic agitation with disorganized thought and flat affect. 2. Schizoaffective disorder. 3. Active nicotine, alcohol and PCP abuse and dependence. 4. Substance-induced mood disorder. 5. Hypertension. 6. Transient tachycardia, probably secondary to anxiety. 7. Morbid obesity with elevated body mass index of 42. 8. Insomnia. 9. Psychosis with disorganized speech. 10. Behavioral disorder with agitation. 1. Acute psychosis with disorganized, tangential speech and thoughts with gait dysfunction. 2. Morbid obesity. 3. Insomnia. 4. Anxious, restless and agitated state with anxiety. 5. History of hypertension. 6. Morbid obesity with elevated body mass index of 42. 7. Urine drug screen positive for PCP. 8. Active nicotine, alcohol and drug abuse and dependence. 9. Paranoia and auditory, visual hallucination. 10. Poor personal hygiene. 11. Psychomotor agitation and retardation. 12. Substance-induced mood disorder. 13. Schizoaffective disorder. 14. Nicotine, alcohol PCP use abuse disorder. 15. History of questionable asthma. 1. Active psychosis with behavioral disorder. 2. Active psychosis with behavioral disorder with flat affect, disorganized speech, and tangential responses. 3. Morbid obesity. 4. Hypertension. 5. Tachycardia. 6. History of chronic noncompliance. 7. Active PCP use. 8. Active alcohol, tobacco abuse, and dependence. 9. Insomnia. 1. Questionable acute exacerbation of schizoaffective disorder with bizarre behavior and behavioral disorder. 2. Chronic noncompliance and poor compliance with medication. 3. Active PCP use. 4. Substance-induced mood disorder. 5. Alcohol and tobacco use and abuse disorder. 6. Morbid obesity. 7. Transient uncontrolled hypertension. 8. Questionable altered mental status secondary to underlying psychiatric problem versus medications. 9. Active nicotine, alcohol, and substance abuse disorder. 10. Insomnia. 11. Hypertension. 12. Hypovitaminosis D. 13. Active nicotine addiction. PLAN: At this time, the patient is to be continued on Ativan 2 mg IM q. 6 hours p.r.n., Ativan 2 mg IM q. 6 p.r.n., Benadryl 50 IM q. 6 p.r.n., Cogentin 1 mg a.m. and at bedtime. Cozaar will be increased to 50 mg daily. The patient is on Drisdol 50,000 weekly, Haldol 5 mg IM q. 6 hours p.r.n., nicotine patch 27 mg daily, Protonix 40 mg daily, Tylenol 650 q. 4 p.r.n., Xopenex nebulizer 0.63 mg q. 6 hours, Zyprexa 5 mg twice a day. The patient has been ordered out of bed. LUPE stockings, occupational therapy, physical therapy all ordered. The patient seen by physical therapist. The patient was discharged from PT. The patient should be continued on the above therapeutic intervention as per Psychiatry and the patient will be followed closely with monitoring of the patient's hemodynamics and blood pressure. Dictated and electronically signed, not read. Colt Irizarry MD MTDD
--- NOTE | 2017-08-24 15:11 | PCM.PYCHPN ---
Psychiatric Progress Note - Psychiatric Progress Note Patient seen today, length of contact: 30min Patient Chief Complaint: "I don't know, I have a tooth infection, look at my toe it is infected too, I most likely would need my leg amputated..." (pt seems to be disorganized, pt has just fungal infection of toe and ingrown toenail Medical Problems: asthma, obesity Diagnostic Results: 08/17/17 09:40 08/17/17 09:40 Lab Results 08/17/17 09:40: Sodium 140, Potassium 4.0, Chloride 106, Carbon Dioxide 24, Anion Gap 14, BUN 12, Creatinine 1.0, Est GFR ( Amer) > 60, Est GFR (Non- Af Amer) > 60, Random Glucose 117 H, Calcium 9.2, Magnesium 2.0, Total Bilirubin 0.3, Direct Bilirubin 0.3, AST 20, ALT 25, Alkaline Phosphatase 79, Total Protein 7.3, Albumin 3.9, Globulin 3.4, Albumin/Globulin Ratio 1.1 08/17/17 09:40: WBC 6.2, RBC 4.82, Hgb 13.4, Hct 39.9, MCV 82.8, MCH 27.8, MCHC 33.6, RDW 14.6 H, Plt Count 315, MPV 9.5, Gran % 51.1, Lymph % (Auto) 36.3 H, [place] % (Auto) 7.9 H, Eos % (Auto) 4.5, Baso % (Auto) 0.2, Gran # 3.19, Lymph # 2.3, Turner # 0.5, Eos # 0.3, Baso # 0.01 08/15/17 11:05: Urine Opiates Screen Negative, Urine Methadone Screen Negative, Ur Barbiturates Screen Negative, Ur Phencyclidine Scrn Positive H, Ur Amphetamines Screen Negative, U Benzodiazepines Scrn Negative, U Oth Cocaine Metabols Negative, U Cannabinoids Screen Negative 08/15/17 11:05: Urine Color Straw, Urine Appearance Slight-cloudy, Urine pH 7.0 , Ur Specific [place] <= 1.005, Urine Protein Negative, Urine Glucose (UA) Negative, Urine Ketones Negative, Urine Blood Negative, Urine Nitrate Negative, Urine Bilirubin Negative, Urine Urobilinogen 0.2, Ur Leukocyte Esterase Negative 08/15/17 10:53: Alcohol, Quantitative < 10 08/15/17 10:53: Salicylates < 1 L, Acetaminophen < 10.0 L 08/15/17 10:53: Sodium 142, Potassium 3.8, Chloride 108 H, Carbon Dioxide 26, Anion Gap 12, BUN 8, Creatinine 1.0, Est GFR ( Amer) > 60, Est GFR (Non- Af Amer) > 60, Random Glucose 102, Calcium 9.0, Total Bilirubin 0.3, AST 25, ALT 23, Alkaline Phosphatase 106, Total Creatine Kinase 289 H, CK-MB (CK-2) 0.9 , CK-MB (CK-2) % Cancelled, Total Protein 7.2, Albumin 3.8, Globulin 3.4, Albumin/Globulin Ratio 1.1 08/15/17 10:53: WBC 6.9, RBC 4.46, Hgb 12.5, Hct 37.0, MCV 83.0, MCH 28.0, MCHC 33.8, RDW 14.6 H, Plt Count 310, MPV 9.2, Gran % 60.6, Lymph % (Auto) 29.5, Turner % (Auto) 6.3 H, Eos % (Auto) 3.3, Baso % (Auto) 0.3, Gran # 4.17, Lymph # 2.0, Turner # 0.4, Eos # 0.2, Baso # 0.02 Vital Signs Temp Pulse Resp BP Pulse Ox 08/17/17 07:00 97.6 F 95 H 19 154/95 H 96 08/16/17 03:00 85 149/85 08/15/17 22:00 97.7 F 78 20 148/68 99 08/15/17 17:48 78 14 156/99 H 100 08/15/17 16:41 80 174/113 H 08/15/17 15:59 83 16 174/113 H 98 08/15/17 14:00 83 18 151/101 H 98 08/15/17 12:52 64 18 128/73 95 08/15/17 10:05 98.2 F 86 18 142/87 100 Temp Pulse Resp BP Pulse Ox 98.4 F 80 16 113/72 96 08/18/17 07:03 08/18/17 07:03 08/18/17 07:03 08/18/17 07:03 08/17/17 07:00 Temp Pulse Resp BP Pulse Ox 98.4 F 100 H 16 140/99 H 96 08/18/17 07:03 08/19/17 09:23 08/18/17 07:03 08/19/17 09:23 08/17/17 07:00 Temp Pulse Resp BP Pulse Ox 98.4 F 83 16 141/92 H 96 08/18/17 07:03 08/21/17 08:15 08/18/17 07:03 08/21/17 08:15 08/17/17 07:00 DSM 5 Symptoms Update: Shortly pt is 37yo AAF with long h/o mental illness, h/o multiple admissions in the psychiatric [place] [facility] [place] [facility] [place] than two weeks ago), pt also has h/o substance use disorder, pt was admitted for evaluation and stabilization of disorganized, psychotic behavior, pt was found wondering on the streets with no shoes and pants on, pt was disorganized and psychotic, pt needed to be medicated in ED as well code Vlad was called over night in the psych inpatient unit, pt has chronic noncompliance with medications and follow up appointments. today pt ambulates steady, still psychotic, patient seems to be in her manic stage right now, pressured speech, thought process is disorganized, circumstantial and tangential. affect is very labile, patient is not able to participate in treatment groups. as per staff pt takes meds, no behavioral incidents. Review of Systems: see Medical consult MSE: Pt deemed to be unreliable historian, pt is disorganized, poor personal hygiene , good ADLs, psychomotor agitation/retardation, speech was: mumbling, eye contact: no eye contact , mood described: "I don't know, I have a tooth infection, look at my toe it is infected too, I most likely would need my leg amputated..." (pt seems to be disorganized, pt has just fungal infection of toe and ingrown toenail, affect: labile, mood incongruent, thought process: disorganized, thought content: pt denied SI/ HI, pt obviously paranoid, psychotic, disorganized, internally preoccupied, insight/judgment: impaired, impulses are unpredictable. Impression: schizoaffective disorder PCP abuse substance induced mood disorder alcohol use disorder tobacco abuse Treatment plan: Milieu/structure/supportive therapy Medical consult appreciated, see medical team note for more detailed info consultation for discharge plan and social issues Med management patient currently is on one-to-one observation for safety, risk of falls, disorganized behavior. Benztropine 1mg po amhs for EPS Haldol d/c zyprexa 7.5mg po amhs for psychosis would consider to start Haldol Dec, pt is noncompliant with meds and f/u appts Losartan [Cozaar] 50 mg PO DAILY Nicotine 7 mg/24 hr [Nicoderm CQ] 1 patch TD DAILY Family involvement Follow up on labs Will monitor closely evaluation for d/c planning Pt was educated about risk/benefits and alternatives of medications, coping strategies (safety plan, suicide prevention), relapse prevention, importance of follow up with psychiatrist and therapist, stay away from drugs/alcohol/ smokingshe is I didn't see was ordering any antibiotics starting as she wanted to see diathesis as possible Medication Change: Yes (zyprexa increased, depakote started) Medical Record Reviewed: Yes Consults ordered or reviewed: medical consult appreciated Mental Status Examination - Cognitive Function Orientation: Person, Place Attention: Poor Concentration: Poor Association: Loose - Mood Mood: Other ( "feeling good") - Affect Affect: Broad - Speech Speech: Appropriate (rushed but less pressured) - Formal Thought Process Formal Thought Process: Loosening of associations (overinclusive) - Suicidal Ideation Suicidal Ideation: No - Homicidal Ideation Homicidal Ideation: No Goal/Treatment Plan - Goal/Treatment Plan Need for Continued Stay: Remain at risks for inpatient hospitalization, Severe depression anxiety, Discharge may exacerbated symptoms, Failed transitioning, Severe functional impairment Estimated Date of D/C: 08/28/17
[2017-08-24] MEDS: Divalproex 250 mg DR (BID formulation) PO SCH ×2 (17:37→17:58)
[2017-08-25] MEDS: Levalbuterol 0.63 MG/3 ML Inhal Soln UD IH SCH ×4 (01:46→20:21)
--- NOTE | 2017-08-25 04:22 | PN ---
DATE: 08/24/2017 SUBJECTIVE: The patient is seen, sitting up in the bay room. The patient's overnight nurses' notes were reviewed. Overnight nurses' notes noted that the patient was cooperative and pleasant, but talkative with some manic behavior, tangential thoughts, and compliant with medication. The patient complained of toothache and a dentist appointment. The patient complained of some insomnia. The patient was found to be manic with the manic racing thoughts. The patient was seen by social media strategist. The patient does not appear to be ready for discharge due to behavior. The patient was found to be irritable and upset. The patient's social media strategist contacted [facility] outpatient office. According to the [facility] outpatient office, the patient has reported to have missed 5 psychiatric appointments since December. The patient's case was closed due to failure to followup. The patient was found to be rambling, over productive speech, racing and grandiose delusion and agitated and argumentative. The patient refused Depakote according to the nurses' notes today. The patient was found to be anxious. OBJECTIVE: VITAL SIGNS: T-max afebrile, heart rate down to 72, blood pressure 122/83 and 134/81, and respirations 16. HEENT: Head examination; normocephalic and atraumatic. HEENT examination shows pink conjunctivae. Anicteric sclerae. No oropharyngeal lesion. NECK: No neck rigidity. CHEST: Kyphosis. LUNGS: Shows no rales, crackles or wheezing. CARDIOVASCULAR: S1 and S2, regular rhythm. ABDOMEN: Morbidly obese. GENITALIA: Female. RECTAL: Deferred. EXTREMITIES: Shows chronic nonpitting swelling of the lower extremity. MUSCULOSKELETAL: Shows elevated body mass index of 49. NEUROLOGIC: The patient is alert, awake, and responsive, is able to move upper and lower extremity without assistance. Gait examination is independent. VASCULAR: Palpable pulses. Cranial nerves II-XII limited. IMPRESSION: 1. Acute exacerbation of schizoaffective disorder. 2. Intermittent manic episode with poor insight and judgment. 3. Insomnia. 4. Grandiose and manic behavior. 5. Insomnia. 6. Poor dental hygiene. 7. Over productive speech with manic behavior and tangential thought process. 8. Manic episode with racing thoughts. 9. History of poor compliance and noncompliance. 10. Rambling and over productive speech with racing thoughts and grandiose delusions. 11. Labile affect and mood with agitation with poor decision making. 12. Noncompliance with medication. 13. Episodic anxiety. 14. Morbid obesity. 15. Hypertension. 16. History of nicotine, alcohol, polysubstance abuse and dependence. 17. Obesity with elevated body mass index. 18. History of phencyclidine abuse. 1. Chronic tooth problem and probably poor dental hygiene with dental caries. 2. Acute exacerbation of schizoaffective disorder. 3. Hypertension. 4. Tachycardia. 5. Morbid obesity with elevated body mass index. 6. History of poor compliance and noncompliance. 7. History of behavioral disorder. 8. Active nicotine, alcohol, and recreational drug use and dependence, and history of PCP use. 9. Bilateral nonpitting lower extremity venous stasis. 10. History of questionable chronic obstructive pulmonary disease versus asthma. 11. Hypovitaminosis D. 1. Acute exacerbation of schizoaffective disorder with psychosis and behavioral disturbances. 2. Active nicotine, alcohol, PCP, polysubstance abuse and dependence with substance-induced mood disorder. 3. Morbid obesity. 4. Hypertension. 5. Asthma. 6. Nicotine dependence. 7. Transient tachycardia. 8. Obesity with elevated body mass index of greater than 48. 9. Hypertensive cardiovascular disease. 1. Acute exacerbation of schizophrenia with psychosis. 2. Active nicotine, alcohol, polysubstance abuse, and PCP abuse. 3. Hypertension. 4. Hypovitaminosis D. 5. Morbid obesity. 6. Questionable asthma. 7. Psychosis. 8. History of poor compliance and noncompliance with medication. 9. Questionable behavioral disorder. 10. Insomnia. 1. Acute exacerbation of schizophrenia and psychosis. 2. Questionable and possible behavioral disorder. 3. Noncompliance and poor compliance. 4. Super morbid obesity. 5. Active nicotine, alcohol and drug abuse and PCP abuse and dependence. 6. Noncompliance. 7. Hypertension. 8. Tachycardia. 9. History of asthma. 10. Hypovitaminosis D. 17. Bilateral lower extremity trace venous stasis. 18. Insomnia. 19. Hypertension. 1. Acute psychosis with episodic agitation with disorganized thought and flat affect. 2. Schizoaffective disorder. 3. Active nicotine, alcohol and PCP abuse and dependence. 4. Substance-induced mood disorder. 5. Hypertension. 6. Transient tachycardia, probably secondary to anxiety. 7. Morbid obesity with elevated body mass index of 42. 8. Insomnia. 9. Psychosis with disorganized speech. 10. Behavioral disorder with agitation. 1. Acute psychosis with disorganized, tangential speech and thoughts with gait dysfunction. 2. Morbid obesity. 3. Insomnia. 4. Anxious, restless and agitated state with anxiety. 5. History of hypertension. 6. Morbid obesity with elevated body mass index of 42. 7. Urine drug screen positive for PCP. 8. Active nicotine, alcohol and drug abuse and dependence. 9. Paranoia and auditory, visual hallucination. 10. Poor personal hygiene. 11. Psychomotor agitation and retardation. 12. Substance-induced mood disorder. 13. Schizoaffective disorder. 14. Nicotine, alcohol PCP use abuse disorder. 15. History of questionable asthma. 1. Active psychosis with behavioral disorder. 2. Active psychosis with behavioral disorder with flat affect, disorganized speech, and tangential responses. 3. Morbid obesity. 4. Hypertension. 5. Tachycardia. 6. History of chronic noncompliance. 7. Active PCP use. 8. Active alcohol, tobacco abuse, and dependence. 9. Insomnia. 1. Questionable acute exacerbation of schizoaffective disorder with bizarre behavior and behavioral disorder. 2. Chronic noncompliance and poor compliance with medication. 3. Active PCP use. 4. Substance-induced mood disorder. 5. Alcohol and tobacco use and abuse disorder. 6. Morbid obesity. 7. Transient uncontrolled hypertension. 8. Questionable altered mental status secondary to underlying psychiatric problem versus medications. 9. Active nicotine, alcohol, and substance abuse disorder. 10. Insomnia. 11. Hypertension. 12. Hypovitaminosis D. 13. Active nicotine addiction. PLAN: At this time, the patient is to be continued on inpatient psychiatric treatment. The patient is currently on Ativan 2 mg IM q.6 hours p.r.n., Benadryl 50 mg IM q.6 hours p.r.n., Cogentin 1 mg a.m. and at bedtime, Cozaar 50 mg daily, Depakote 250 mg twice a day, Drisdol 50,000 weekly, Haldol 5 mg IM q.6 hours p.r.n., nicotine patch 7 mg daily, Protonix 40 mg daily, Tylenol 650 q.4 hours p.r.n., Xopenex nebulizer 0.63 mg q.6 hours, respiratory, Zyprexa 7.5 mg twice a day which is increased today. The patient is also started on Depakote 250 twice a day. Today, the patient has monitored out of bed and LUPE stockings. At present, the patient appears to be medically stable. The patient needs dental evaluation for her poor dental hygiene. Dictated and electronically signed, not read. Colt Irizarry MD MTDD
[2017-08-25] MEDS: Pantoprazole 40 mg EC Tab PO SCH (06:03)
[2017-08-25] MEDS: Divalproex 250 mg DR (BID formulation) PO SCH ×3 (09:36→17:54)
[2017-08-25] MEDS: OLANZapine 5 mg Disintegrating Tab PO SCH (09:37)
--- NOTE | 2017-08-25 15:18 | PCM.PYCHPN ---
Psychiatric Progress Note - Psychiatric Progress Note Patient seen today, length of contact: 30min Patient Chief Complaint: " recommended to sleep with no panties on, for vagina to breath" Medical Problems: asthma, obesity Diagnostic Results: 08/17/17 09:40 08/17/17 09:40 Lab Results 08/17/17 09:40: Sodium 140, Potassium 4.0, Chloride 106, Carbon Dioxide 24, Anion Gap 14, BUN 12, Creatinine 1.0, Est GFR ( Amer) > 60, Est GFR (Non- Af Amer) > 60, Random Glucose 117 H, Calcium 9.2, Magnesium 2.0, Total Bilirubin 0.3, Direct Bilirubin 0.3, AST 20, ALT 25, Alkaline Phosphatase 79, Total Protein 7.3, Albumin 3.9, Globulin 3.4, Albumin/Globulin Ratio 1.1 08/17/17 09:40: WBC 6.2, RBC 4.82, Hgb 13.4, Hct 39.9, MCV 82.8, MCH 27.8, MCHC 33.6, RDW 14.6 H, Plt Count 315, MPV 9.5, Gran % 51.1, Lymph % (Auto) 36.3 H, [place] % (Auto) 7.9 H, Eos % (Auto) 4.5, Baso % (Auto) 0.2, Gran # 3.19, Lymph # 2.3, [place] # 0.5, Eos # 0.3, Baso # 0.01 08/15/17 11:05: Urine Opiates Screen Negative, Urine Methadone Screen Negative, Ur Barbiturates Screen Negative, Ur Phencyclidine Scrn Positive H, Ur Amphetamines Screen Negative, U Benzodiazepines Scrn Negative, U Oth Cocaine Metabols Negative, U Cannabinoids Screen Negative 08/15/17 11:05: Urine Color Straw, Urine Appearance Slight-cloudy, Urine pH 7.0 , Ur Specific [place] <= 1.005, Urine Protein Negative, Urine Glucose (UA) Negative, Urine Ketones Negative, Urine Blood Negative, Urine Nitrate Negative, Urine Bilirubin Negative, Urine Urobilinogen 0.2, Ur Leukocyte Esterase Negative 08/15/17 10:53: Alcohol, Quantitative < 10 08/15/17 10:53: Salicylates < 1 L, Acetaminophen < 10.0 L 08/15/17 10:53: Sodium 142, Potassium 3.8, Chloride 108 H, Carbon Dioxide 26, Anion Gap 12, BUN 8, Creatinine 1.0, Est GFR ( Amer) > 60, Est GFR (Non- Af Amer) > 60, Random Glucose 102, Calcium 9.0, Total Bilirubin 0.3, AST 25, ALT 23, Alkaline Phosphatase 106, Total Creatine Kinase 289 H, CK-MB (CK-2) 0.9 , CK-MB (CK-2) % Cancelled, Total Protein 7.2, Albumin 3.8, Globulin 3.4, Albumin/Globulin Ratio 1.1 08/15/17 10:53: WBC 6.9, RBC 4.46, Hgb 12.5, Hct 37.0, MCV 83.0, MCH 28.0, MCHC 33.8, RDW 14.6 H, Plt Count 310, MPV 9.2, Gran % 60.6, Lymph % (Auto) 29.5, [place] % (Auto) 6.3 H, Eos % (Auto) 3.3, Baso % (Auto) 0.3, Gran # 4.17, Lymph # 2.0, Mills # 0.4, Eos # 0.2, Baso # 0.02 Vital Signs Temp Pulse Resp BP Pulse Ox 08/17/17 07:00 97.6 F 95 H 19 154/95 H 96 08/16/17 03:00 85 149/85 08/15/17 22:00 97.7 F 78 20 148/68 99 08/15/17 17:48 78 14 156/99 H 100 08/15/17 16:41 80 174/113 H 08/15/17 15:59 83 16 174/113 H 98 08/15/17 14:00 83 18 151/101 H 98 08/15/17 12:52 64 18 128/73 95 08/15/17 10:05 98.2 F 86 18 142/87 100 Temp Pulse Resp BP Pulse Ox 98.4 F 80 16 113/72 96 08/18/17 07:03 08/18/17 07:03 08/18/17 07:03 08/18/17 07:03 08/17/17 07:00 Temp Pulse Resp BP Pulse Ox 98.4 F 100 H 16 140/99 H 96 08/18/17 07:03 08/19/17 09:23 08/18/17 07:03 08/19/17 09:23 08/17/17 07:00 Temp Pulse Resp BP Pulse Ox 98.4 F 83 16 141/92 H 96 08/18/17 07:03 08/21/17 08:15 08/18/17 07:03 08/21/17 08:15 08/17/17 07:00 Temp Pulse Resp BP Pulse Ox 98.0 F 72 16 122/83 96 08/25/17 07:41 08/25/17 09:38 08/25/17 07:41 08/25/17 09:38 08/22/17 06:53 DSM 5 Symptoms Update: Shortly pt is 37yo AAF with long h/o mental illness, h/o multiple admissions in the psychiatric inpatient unit (mostly [place] [facility] [place], [place] admission to [facility] [place] less than two weeks ago), pt also has h/o substance use disorder, pt was admitted for evaluation and stabilization of disorganized, psychotic behavior, pt was found wondering on the streets with no shoes and pants on, pt was disorganized and psychotic, pt needed to be medicated in ED as well code Chu was called over night in the psych inpatient unit, pt has chronic noncompliance with medications and follow up appointments. pt was seen today at tx team room, presented to have pressured and disorganized speech, pt said that she is ready for discharge, pt said that she has at least two potential interviews for the [address] apartments. pt seems to be in hypomanic stage, said that she was living in her mother's car, pt does not know the circumstances of her admission to the psych unit, said "I was following what recommended, to sleep with no panties on for vagina to breath", inappropriate sexual comments as well as per collateral info from staff. as per staff pt takes meds, no behavioral incidents. Review of Systems: see Medical consult in regards of hygiene, pt has strong body odor, pt trying to cover it with the strong perfume fragrance, pt has bright orange eyeshadows seems pt used marker. as per mother's collaterals pt is not ready for d/c. MSE: Pt deemed to be unreliable historian, pt is disorganized, poor personal hygiene , good ADLs, psychomotor agitation/retardation, speech was: mumbling, eye contact: no eye contact , mood described: "I am fine, I need to go", affect: labile, mood incongruent, thought process:disorganized, thought content: pt denied SI/ HI, pt obviously paranoid "my mother wants to keep me here, she is stealing money from me", psychotic, disorganized, internally preoccupied, insight/judgment: impaired, impulses are unpredictable. Impression: schizoaffective disorder PCP abuse substance induced mood disorder alcohol use disorder tobacco abuse Treatment plan: Milieu/structure/supportive therapy Medical consult appreciated, see medical team note for more detailed info consultation for discharge plan and social issues Med management patient currently is on one-to-one observation for safety, risk of falls, disorganized behavior. Benztropine 1mg po amhs for EPS pt requested Haldol resumption, pt will be started haldol 10mg amhs for psychosis in order to start Haldol Dec, pt is noncompliant with meds and f/u appts Losartan [Cozaar] 50 mg PO DAILY Nicotine 7 mg/24 hr [Nicoderm CQ] 1 patch TD DAILY Family involvement Follow up on labs Will monitor closely evaluation for d/c planning Pt was educated about risk/benefits and alternatives of medications, coping strategies (safety plan, suicide prevention), relapse prevention, importance of follow up with psychiatrist and therapist, stay away from drugs/alcohol/ smokingshe is I didn't see was ordering any antibiotics starting as she wanted to see diathesis as possible Medication Change: Yes (haldol resumed) Medical Record Reviewed: Yes Mental Status Examination - Cognitive Function Orientation: Person, Place Attention: Poor Concentration: Poor Association: Loose - Mood Mood: Other ( "feeling good") - Affect Affect: Broad - Speech Speech: Appropriate (rushed but less pressured) - Formal Thought Process Formal Thought Process: Loosening of associations (overinclusive) - Suicidal Ideation Suicidal Ideation: No - Homicidal Ideation Homicidal Ideation: No Goal/Treatment Plan - Goal/Treatment Plan Need for Continued Stay: Remain at risks for inpatient hospitalization, Severe depression anxiety, Discharge may exacerbated symptoms, Failed transitioning, Severe functional impairment Estimated Date of D/C: 08/28/17
--- NOTE | 2017-08-25 20:13 | PN ---
DATE: 08/25/2017 SUBJECTIVE: The patient is seen in the hallway. The patient has been in between talking on the phone. The patient's nurses' notes were reviewed. The patient was compliant with medication but the patient was found to be alert, awake and oriented x3, anxious mood, affect congruent. The patient is concerned about her housing section 8. Speech is over productive, pressured with grandiose delusions. PHYSICAL EXAMINATION: VITAL SIGNS: T-max 98, heart rate 88, 72, 72, 101, blood pressure 123/83, 139/84, 91/56 which does not appear to be correct, 122/83, respirations 16, O2 sat 96% to 100%. HEAD: Examination normocephalic, atraumatic. EENT: Examination shows pink conjunctivae. Anicteric sclerae. No oropharyngeal lesion. NECK: No neck rigidity. CHEST: Examination kyphosis. LUNGS: Examination shows no rales, crackles or wheezing. CARDIOVASCULAR: Examination shows S1, S2, regular rhythm. ABDOMEN: Morbidly obese. GENITALIA: Female. RECTAL: Examination is deferred. EXTREMITIES: Shows chronic nonpitting swelling of the lower extremities. MUSCULOSKELETAL: Examination shows a body mass index of almost 49. NEUROLOGIC: The patient is alert, awake, responsive, oriented x3. CURRENT MEDICATIONS: Ativan 2 mg IM q. 6 hours p.r.n., Benadryl 50 mg IM q. 6 hours p.r.n., Cogentin 1 mg a.m. and at bedtime, Cozaar 50 mg daily, Depakote DR 250 mg twice a day, Drisdol 50,000 weekly, Haldol 5 mg IM q. 6 hours p.r.n. and Haldol 10 mg a.m. and at bedtime and Haldol 10 mg at 4 p.m., nicotine patch 7 mg daily, Protonix 40 mg daily, Tylenol 650 q. 4 p.r.n., Xopenex nebulizer 0.63 mg every 6 hours. IMPRESSION: 1. Acute exacerbation of schizoaffective disorder with psychosis. 2. Hypertension. 3. Morbid obesity with elevated body mass index of almost 49. 4. Nicotine, alcohol, and recreational drug use and PCP use. 5. Disorganized and tangential thought disorder with overproductive speech. 6. Manic episodes. 7. Anxiety disorder with overproductive pressured speech and grandiose delusion. 8. Possible chronic obstructive pulmonary disease or emphysema. 9. Hypovitaminosis D. 1. Acute exacerbation of schizoaffective disorder. 2. Intermittent manic episode with poor insight and judgment. 3. Insomnia. 4. Grandiose and manic behavior. 5. Insomnia. 6. Poor dental hygiene. 7. Over productive speech with manic behavior and tangential thought process. 8. Manic episode with racing thoughts. 9. History of poor compliance and noncompliance. 10. Rambling and over productive speech with racing thoughts and grandiose delusions. 11. Labile affect and mood with agitation with poor decision making. 12. Noncompliance with medication. 13. Episodic anxiety. 14. Morbid obesity. 15. Hypertension. 16. History of nicotine, alcohol, polysubstance abuse and dependence. 17. Obesity with elevated body mass index. 18. History of phencyclidine abuse. 1. Chronic tooth problem and probably poor dental hygiene with dental caries. 2. Acute exacerbation of schizoaffective disorder. 3. Hypertension. 4. Tachycardia. 5. Morbid obesity with elevated body mass index. 6. History of poor compliance and noncompliance. 7. History of behavioral disorder. 8. Active nicotine, alcohol, and recreational drug use and dependence, and history of PCP use. 9. Bilateral nonpitting lower extremity venous stasis. 10. History of questionable chronic obstructive pulmonary disease versus asthma. 11. Hypovitaminosis D. 1. Acute exacerbation of schizoaffective disorder with psychosis and behavioral disturbances. 2. Active nicotine, alcohol, PCP, polysubstance abuse and dependence with substance-induced mood disorder. 3. Morbid obesity. 4. Hypertension. 5. Asthma. 6. Nicotine dependence. 7. Transient tachycardia. 8. Obesity with elevated body mass index of greater than 48. 9. Hypertensive cardiovascular disease. 1. Acute exacerbation of schizophrenia with psychosis. 2. Active nicotine, alcohol, polysubstance abuse, and PCP abuse. 3. Hypertension. 4. Hypovitaminosis D. 5. Morbid obesity. 6. Questionable asthma. 7. Psychosis. 8. History of poor compliance and noncompliance with medication. 9. Questionable behavioral disorder. 10. Insomnia. 1. Acute exacerbation of schizophrenia and psychosis. 2. Questionable and possible behavioral disorder. 3. Noncompliance and poor compliance. 4. Super morbid obesity. 5. Active nicotine, alcohol and drug abuse and PCP abuse and dependence. 6. Noncompliance. 7. Hypertension. 8. Tachycardia. 9. History of asthma. 10. Hypovitaminosis D. 17. Bilateral lower extremity trace venous stasis. 18. Insomnia. 19. Hypertension. 1. Acute psychosis with episodic agitation with disorganized thought and flat affect. 2. Schizoaffective disorder. 3. Active nicotine, alcohol and PCP abuse and dependence. 4. Substance-induced mood disorder. 5. Hypertension. 6. Transient tachycardia, probably secondary to anxiety. 7. Morbid obesity with elevated body mass index of 42. 8. Insomnia. 9. Psychosis with disorganized speech. 10. Behavioral disorder with agitation. 1. Acute psychosis with disorganized, tangential speech and thoughts with gait dysfunction. 2. Morbid obesity. 3. Insomnia. 4. Anxious, restless and agitated state with anxiety. 5. History of hypertension. 6. Morbid obesity with elevated body mass index of 42. 7. Urine drug screen positive for PCP. 8. Active nicotine, alcohol and drug abuse and dependence. 9. Paranoia and auditory, visual hallucination. 10. Poor personal hygiene. 11. Psychomotor agitation and retardation. 12. Substance-induced mood disorder. 13. Schizoaffective disorder. 14. Nicotine, alcohol PCP use abuse disorder. 15. History of questionable asthma. 1. Active psychosis with behavioral disorder. 2. Active psychosis with behavioral disorder with flat affect, disorganized speech, and tangential responses. 3. Morbid obesity. 4. Hypertension. 5. Tachycardia. 6. History of chronic noncompliance. 7. Active PCP use. 8. Active alcohol, tobacco abuse, and dependence. 9. Insomnia. 1. Questionable acute exacerbation of schizoaffective disorder with bizarre behavior and behavioral disorder. 2. Chronic noncompliance and poor compliance with medication. 3. Active PCP use. 4. Substance-induced mood disorder. 5. Alcohol and tobacco use and abuse disorder. 6. Morbid obesity. 7. Transient uncontrolled hypertension. 8. Questionable altered mental status secondary to underlying psychiatric problem versus medications. 9. Active nicotine, alcohol, and substance abuse disorder. 10. Insomnia. 11. Hypertension. 12. Hypovitaminosis D. 13. Active nicotine addiction. PLAN: At this time, the patient was seen by the psychiatrist and the clinical social work aide. The patient has declined to sign the 48-hour notice. The patient has been advised out of bed to [facility]. The patient was seen by physical therapist. The patient was discharged from PT as the patient is independent. At present, the patient's further management will be dependent upon the patient's clinical condition, hemodynamic status, and as per psychiatrist's recommendation. Dictated and electronically signed, not read. Colt Irizarry MD MTDD
[2017-08-26] MEDS: Levalbuterol 0.63 MG/3 ML Inhal Soln UD IH SCH ×4 (01:37→20:39)
[2017-08-26] MEDS: Pantoprazole 40 mg EC Tab PO SCH (06:00)
[2017-08-26] MEDS: Divalproex 250 mg DR (BID formulation) PO SCH (08:06)
--- NOTE | 2017-08-26 16:27 | PCM.PYCHPN ---
Psychiatric Progress Note - Psychiatric Progress Note Patient seen today, length of contact: 30min Patient Chief Complaint: "I am working on a new song..." Medical Problems: asthma, obesity Diagnostic Results: 08/17/17 09:40 08/17/17 09:40 Lab Results 08/17/17 09:40: Sodium 140, Potassium 4.0, Chloride 106, Carbon Dioxide 24, Anion Gap 14, BUN 12, Creatinine 1.0, Est GFR ( Amer) > 60, Est GFR (Non- Af Amer) > 60, Random Glucose 117 H, Calcium 9.2, Magnesium 2.0, Total Bilirubin 0.3, Direct Bilirubin 0.3, AST 20, ALT 25, Alkaline Phosphatase 79, Total Protein 7.3, Albumin 3.9, Globulin 3.4, Albumin/Globulin Ratio 1.1 08/17/17 09:40: WBC 6.2, RBC 4.82, Hgb 13.4, Hct 39.9, MCV 82.8, MCH 27.8, MCHC 33.6, RDW 14.6 H, Plt Count 315, MPV 9.5, Gran % 51.1, Lymph % (Auto) 36.3 H, [place] % (Auto) 7.9 H, Eos % (Auto) 4.5, Baso % (Auto) 0.2, Gran # 3.19, Lymph # 2.3, [place] # 0.5, Eos # 0.3, Baso # 0.01 08/15/17 11:05: Urine Opiates Screen Negative, Urine Methadone Screen Negative, Ur Barbiturates Screen Negative, Ur Phencyclidine Scrn Positive H, Ur Amphetamines Screen Negative, U Benzodiazepines Scrn Negative, U Oth Cocaine Metabols Negative, U Cannabinoids Screen Negative 08/15/17 11:05: Urine Color Straw, Urine Appearance Slight-cloudy, Urine pH 7.0 , Ur Specific [place] <= 1.005, Urine Protein Negative, Urine Glucose (UA) Negative, Urine Ketones Negative, Urine Blood Negative, Urine Nitrate Negative, Urine Bilirubin Negative, Urine Urobilinogen 0.2, Ur Leukocyte Esterase Negative 08/15/17 10:53: Alcohol, Quantitative < 10 08/15/17 10:53: Salicylates < 1 L, Acetaminophen < 10.0 L 08/15/17 10:53: Sodium 142, Potassium 3.8, Chloride 108 H, Carbon Dioxide 26, Anion Gap 12, BUN 8, Creatinine 1.0, Est GFR ( Amer) > 60, Est GFR (Non- Af Amer) > 60, Random Glucose 102, Calcium 9.0, Total Bilirubin 0.3, AST 25, ALT 23, Alkaline Phosphatase 106, Total Creatine Kinase 289 H, CK-MB (CK-2) 0.9 , CK-MB (CK-2) % Cancelled, Total Protein 7.2, Albumin 3.8, Globulin 3.4, Albumin/Globulin Ratio 1.1 08/15/17 10:53: WBC 6.9, RBC 4.46, Hgb 12.5, Hct 37.0, MCV 83.0, MCH 28.0, MCHC 33.8, RDW 14.6 H, Plt Count 310, MPV 9.2, Gran % 60.6, Lymph % (Auto) 29.5, [place] % (Auto) 6.3 H, Eos % (Auto) 3.3, Baso % (Auto) 0.3, Gran # 4.17, Lymph # 2.0, [place] # 0.4, Eos # 0.2, Baso # 0.02 Vital Signs Temp Pulse Resp BP Pulse Ox 08/17/17 07:00 97.6 F 95 H 19 154/95 H 96 08/16/17 03:00 85 149/85 08/15/17 22:00 97.7 F 78 20 148/68 99 08/15/17 17:48 78 14 156/99 H 100 08/15/17 16:41 80 174/113 H 08/15/17 15:59 83 16 174/113 H 98 08/15/17 14:00 83 18 151/101 H 98 08/15/17 12:52 64 18 128/73 95 08/15/17 10:05 98.2 F 86 18 142/87 100 Temp Pulse Resp BP Pulse Ox 98.4 F 80 16 113/72 96 08/18/17 07:03 08/18/17 07:03 08/18/17 07:03 08/18/17 07:03 08/17/17 07:00 Temp Pulse Resp BP Pulse Ox 98.4 F 100 H 16 140/99 H 96 08/18/17 07:03 08/19/17 09:23 08/18/17 07:03 08/19/17 09:23 08/17/17 07:00 Temp Pulse Resp BP Pulse Ox 98.4 F 83 16 141/92 H 96 08/18/17 07:03 08/21/17 08:15 08/18/17 07:03 08/21/17 08:15 08/17/17 07:00 Temp Pulse Resp BP Pulse Ox 98.0 F 72 16 122/83 96 08/25/17 07:41 08/25/17 09:38 08/25/17 07:41 08/25/17 09:38 08/22/17 06:53 DSM 5 Symptoms Update: Shortly pt is 37yo AAF with long h/o mental illness, h/o multiple admissions in the psychiatric inpatient unit (mostly [place] [facility] [place], recent admission to [facility] [place] less than two weeks ago), pt also has h/o substance use disorder, pt was admitted for evaluation and stabilization of disorganized, psychotic behavior, pt was found wondering on the streets with no shoes and pants on, pt was disorganized and psychotic, pt needed to be medicated in ED as well code Chu was called over night in the psych inpatient unit, pt has chronic noncompliance with medications and follow up appointments. pt was seen today next to the nursing station, pt presented to be disorganized pt said that he is in relationship with Bora Gillis, pt said that she has many fur coats "I have [employer] fur coats, I have a lot of brand clothing", pt also said that she worked on the song while was in here and one of other pt's uncle works in a music industry and she wrote a song earlier. Pt handed a words for the song "WORDS, WORDS, WORDS, WORDS KEEP IT UP" statement was repeated on at least 10 pages, pt tried to rap as well. haldol was increased, tegretol resumed pt refused to take depakote. as per staff pt takes meds, no behavioral incidents, took a shower after strong encouragement, still smells badly, pt also appears to be sexually preoccupied. . MSE: Pt deemed to be unreliable historian, pt is disorganized, poor personal hygiene , good ADLs, psychomotor agitation/retardation, speech was: mumbling, eye contact: no eye contact , mood described: "I feel great, I am working on a new song", affect: labile, mood incongruent, thought process:disorganized, thought content: pt denied SI/ HI, pt obviously paranoid "my mother wants to keep me here, she is stealing money from me", psychotic, disorganized, internally preoccupied, insight/judgment: impaired, impulses are unpredictable. Impression: schizoaffective disorder PCP abuse, r/o permanent neurological damage substance induced mood disorder alcohol use disorder tobacco abuse Treatment plan: Milieu/structure/supportive therapy Medical consult appreciated, see medical team note for more detailed info consultation for discharge plan and social issues Med management patient currently is on one-to-one observation for safety, risk of falls, disorganized behavior. Benztropine 1mg po amhs for EPS Haldol 10mg tid for psychosis in order to start Haldol Dec, pt is noncompliant with meds and f/u appts Losartan [Cozaar] 50 mg PO DAILY Nicotine 7 mg/24 hr [Nicoderm CQ] 1 patch TD DAILY tegretol was resumed 200mg po bid for mood stabilization Family involvement Follow up on labs Will monitor closely evaluation for d/c planning Pt was educated about risk/benefits and alternatives of medications, coping strategies (safety plan, suicide prevention), relapse prevention, importance of follow up with psychiatrist and therapist, stay away from drugs/alcohol/smoking Medication Change: Yes (haldol resumed) Medical Record Reviewed: Yes Mental Status Examination - Cognitive Function Orientation: Person, Place Attention: Poor Concentration: Poor Association: Loose - Mood Mood: Other ( "feeling good") - Affect Affect: Broad - Speech Speech: Appropriate (rushed but less pressured) - Formal Thought Process Formal Thought Process: Loosening of associations (overinclusive) - Suicidal Ideation Suicidal Ideation: No - Homicidal Ideation Homicidal Ideation: No Goal/Treatment Plan - Goal/Treatment Plan Need for Continued Stay: Remain at risks for inpatient hospitalization, Severe depression anxiety, Discharge may exacerbated symptoms, Failed transitioning, Severe functional impairment Estimated Date of D/C: 08/28/17
[2017-08-27] MEDS: Levalbuterol 0.63 MG/3 ML Inhal Soln UD IH SCH ×4 (01:35→19:57)
[2017-08-27] MEDS: Pantoprazole 40 mg EC Tab PO SCH (06:16)
--- NOTE | 2017-08-27 08:32 | PN ---
DATE: 08/26/2017 SUBJECTIVE: The patient is seen in day room in Psychiatry floor. The patient is out of bed to chair. The patient is consistently and persistently asking about going home. The patient slept well for short times overnight according to the nurse's notes. The patient was seen by the social services coordinator. The patient's mother met with the social services coordinator. The patient's speech was overproductive and pressured. The patient is consistently and persistently requesting to be discharged. PHYSICAL EXAMINATION: VITAL SIGNS: T-max 98.4; heart rate 90, 91, 72, 88, 101; blood pressure in the last 24 hours 128/81, 143/97, 123/83, 134/94; respirations 16 and O2 saturation is 95%, 96%, 98%, 99%. HEAD: Normocephalic and atraumatic. HEENT: Shows pink conjunctivae. Anicteric sclerae. No oropharyngeal lesion. NECK: No neck rigidity. CHEST: Symmetrical. LUNGS: Shows no rales, crackles or wheezing. CARDIOVASCULAR: Shows S1 and S2, regular rhythm. ABDOMEN: Obese. Positive bowel sounds. GENITALIA: Female. RECTAL: Deferred. EXTREMITIES: Shows nonpitting edema with swelling of the lower extremity. MUSCULOSKELETAL: Shows an elevated body mass index of 50.5. DIAGNOSTIC DATA: None. IMPRESSION: 1. Hypertension. 2. Transient tachycardia. 3. Acute exacerbation of schizoaffective disorder. 4. Morbid obesity with elevated body mass index of 50.5. 5. Nicotine, alcohol, polysubstance abuse, and PCP use and dependence. 6. Obesity. 7. Manic episodes. 8. Hypovitaminosis D. 9. Nicotine dependence. 10. Asthma versus chronic obstructive pulmonary disease. 1. Acute exacerbation of schizoaffective disorder with psychosis. 2. Hypertension. 3. Morbid obesity with elevated body mass index of almost 49. 4. Nicotine, alcohol, and recreational drug use and PCP use. 5. Disorganized and tangential thought disorder with overproductive speech. 6. Manic episodes. 7. Anxiety disorder with overproductive pressured speech and grandiose delusion. 8. Possible chronic obstructive pulmonary disease or emphysema. 9. Hypovitaminosis D. 1. Acute exacerbation of schizoaffective disorder. 2. Intermittent manic episode with poor insight and judgment. 3. Insomnia. 4. Grandiose and manic behavior. 5. Insomnia. 6. Poor dental hygiene. 7. Over productive speech with manic behavior and tangential thought process. 8. Manic episode with racing thoughts. 9. History of poor compliance and noncompliance. 10. Rambling and over productive speech with racing thoughts and grandiose delusions. 11. Labile affect and mood with agitation with poor decision making. 12. Noncompliance with medication. 13. Episodic anxiety. 14. Morbid obesity. 15. Hypertension. 16. History of nicotine, alcohol, polysubstance abuse and dependence. 17. Obesity with elevated body mass index. 18. History of phencyclidine abuse. 1. Chronic tooth problem and probably poor dental hygiene with dental caries. 2. Acute exacerbation of schizoaffective disorder. 3. Hypertension. 4. Tachycardia. 5. Morbid obesity with elevated body mass index. 6. History of poor compliance and noncompliance. 7. History of behavioral disorder. 8. Active nicotine, alcohol, and recreational drug use and dependence, and history of PCP use. 9. Bilateral nonpitting lower extremity venous stasis. 10. History of questionable chronic obstructive pulmonary disease versus asthma. 11. Hypovitaminosis D. 1. Acute exacerbation of schizoaffective disorder with psychosis and behavioral disturbances. 2. Active nicotine, alcohol, PCP, polysubstance abuse and dependence with substance-induced mood disorder. 3. Morbid obesity. 4. Hypertension. 5. Asthma. 6. Nicotine dependence. 7. Transient tachycardia. 8. Obesity with elevated body mass index of greater than 48. 9. Hypertensive cardiovascular disease. 1. Acute exacerbation of schizophrenia with psychosis. 2. Active nicotine, alcohol, polysubstance abuse, and PCP abuse. 3. Hypertension. 4. Hypovitaminosis D. 5. Morbid obesity. 6. Questionable asthma. 7. Psychosis. 8. History of poor compliance and noncompliance with medication. 9. Questionable behavioral disorder. 10. Insomnia. 1. Acute exacerbation of schizophrenia and psychosis. 2. Questionable and possible behavioral disorder. 3. Noncompliance and poor compliance. 4. Super morbid obesity. 5. Active nicotine, alcohol and drug abuse and PCP abuse and dependence. 6. Noncompliance. 7. Hypertension. 8. Tachycardia. 9. History of asthma. 10. Hypovitaminosis D. 17. Bilateral lower extremity trace venous stasis. 18. Insomnia. 19. Hypertension. 1. Acute psychosis with episodic agitation with disorganized thought and flat affect. 2. Schizoaffective disorder. 3. Active nicotine, alcohol and PCP abuse and dependence. 4. Substance-induced mood disorder. 5. Hypertension. 6. Transient tachycardia, probably secondary to anxiety. 7. Morbid obesity with elevated body mass index of 42. 8. Insomnia. 9. Psychosis with disorganized speech. 10. Behavioral disorder with agitation. 1. Acute psychosis with disorganized, tangential speech and thoughts with gait dysfunction. 2. Morbid obesity. 3. Insomnia. 4. Anxious, restless and agitated state with anxiety. 5. History of hypertension. 6. Morbid obesity with elevated body mass index of 42. 7. Urine drug screen positive for PCP. 8. Active nicotine, alcohol and drug abuse and dependence. 9. Paranoia and auditory, visual hallucination. 10. Poor personal hygiene. 11. Psychomotor agitation and retardation. 12. Substance-induced mood disorder. 13. Schizoaffective disorder. 14. Nicotine, alcohol PCP use abuse disorder. 15. History of questionable asthma. 1. Active psychosis with behavioral disorder. 2. Active psychosis with behavioral disorder with flat affect, disorganized speech, and tangential responses. 3. Morbid obesity. 4. Hypertension. 5. Tachycardia. 6. History of chronic noncompliance. 7. Active PCP use. 8. Active alcohol, tobacco abuse, and dependence. 9. Insomnia. 1. Questionable acute exacerbation of schizoaffective disorder with bizarre behavior and behavioral disorder. 2. Chronic noncompliance and poor compliance with medication. 3. Active PCP use. 4. Substance-induced mood disorder. 5. Alcohol and tobacco use and abuse disorder. 6. Morbid obesity. 7. Transient uncontrolled hypertension. 8. Questionable altered mental status secondary to underlying psychiatric problem versus medications. 9. Active nicotine, alcohol, and substance abuse disorder. 10. Insomnia. 11. Hypertension. 12. Hypovitaminosis D. 13. Active nicotine addiction. PLAN: At this time, the patient was seen by psychiatrist. The patient is on Ativan 2 mg IM q.6 hours p.r.n., Benadryl 50 mg IM q.6 hours p.r.n., Cogentin 1 mg a.m. and bedtime, Cozaar 50 mg daily, Drisdol 50,000 weekly, Haldol 5 mg IM q.6 hours p.r.n., Haldol 10 mg a.m. and at bedtime, and Haldol 10 mg 4 p.m., nicotine patch 7 mg daily, Protonix 40 mg daily, Tegretol 200 mg twice a day, Tylenol 650 q.4 hours p.r.n., and Xopenex nebulizer 0.63 mg every 6 hours. At present, the patient was seen by Psychiatry. Estimated date of discharge is 08/28/2017, if the patient stays stable. Dictated and electronically signed, not read. Colt Irizarry MD MTDLaura
--- NOTE | 2017-08-27 14:51 | PCM.PYCHPN ---
Psychiatric Progress Note - Psychiatric Progress Note Patient seen today, length of contact: 30min Patient Chief Complaint: "I am working on a new poem..." Medical Problems: asthma, obesity Diagnostic Results: 08/17/17 09:40 08/17/17 09:40 Lab Results 08/17/17 09:40: Sodium 140, Potassium 4.0, Chloride 106, Carbon Dioxide 24, Anion Gap 14, BUN 12, Creatinine 1.0, Est GFR ( Amer) > 60, Est GFR (Non- Af Amer) > 60, Random Glucose 117 H, Calcium 9.2, Magnesium 2.0, Total Bilirubin 0.3, Direct Bilirubin 0.3, AST 20, ALT 25, Alkaline Phosphatase 79, Total Protein 7.3, Albumin 3.9, Globulin 3.4, Albumin/Globulin Ratio 1.1 08/17/17 09:40: WBC 6.2, RBC 4.82, Hgb 13.4, Hct 39.9, MCV 82.8, MCH 27.8, MCHC 33.6, RDW 14.6 H, Plt Count 315, MPV 9.5, Gran % 51.1, Lymph % (Auto) 36.3 H, [place] % (Auto) 7.9 H, Eos % (Auto) 4.5, Baso % (Auto) 0.2, Gran # 3.19, Lymph # 2.3, [place] # 0.5, Eos # 0.3, Baso # 0.01 08/15/17 11:05: Urine Opiates Screen Negative, Urine Methadone Screen Negative, Ur Barbiturates Screen Negative, Ur Phencyclidine Scrn Positive H, Ur Amphetamines Screen Negative, U Benzodiazepines Scrn Negative, U Oth Cocaine Metabols Negative, U Cannabinoids Screen Negative 08/15/17 11:05: Urine Color Straw, Urine Appearance Slight-cloudy, Urine pH 7.0 , Ur Specific [place] <= 1.005, Urine Protein Negative, Urine Glucose (UA) Negative, Urine Ketones Negative, Urine Blood Negative, Urine Nitrate Negative, Urine Bilirubin Negative, Urine Urobilinogen 0.2, Ur Leukocyte Esterase Negative 08/15/17 10:53: Alcohol, Quantitative < 10 08/15/17 10:53: Salicylates < 1 L, Acetaminophen < 10.0 L 08/15/17 10:53: Sodium 142, Potassium 3.8, Chloride 108 H, Carbon Dioxide 26, Anion Gap 12, BUN 8, Creatinine 1.0, Est GFR ( Amer) > 60, Est GFR (Non- Af Amer) > 60, Random Glucose 102, Calcium 9.0, Total Bilirubin 0.3, AST 25, ALT 23, Alkaline Phosphatase 106, Total Creatine Kinase 289 H, CK-MB (CK-2) 0.9 , CK-MB (CK-2) % Cancelled, Total Protein 7.2, Albumin 3.8, Globulin 3.4, Albumin/Globulin Ratio 1.1 08/15/17 10:53: WBC 6.9, RBC 4.46, Hgb 12.5, Hct 37.0, MCV 83.0, MCH 28.0, MCHC 33.8, RDW 14.6 H, Plt Count 310, MPV 9.2, Gran % 60.6, Lymph % (Auto) 29.5, [place] % (Auto) 6.3 H, Eos % (Auto) 3.3, Baso % (Auto) 0.3, Gran # 4.17, Lymph # 2.0, [place] # 0.4, Eos # 0.2, Baso # 0.02 Vital Signs Temp Pulse Resp BP Pulse Ox 08/17/17 07:00 97.6 F 95 H 19 154/95 H 96 08/16/17 03:00 85 149/85 08/15/17 22:00 97.7 F 78 20 148/68 99 08/15/17 17:48 78 14 156/99 H 100 08/15/17 16:41 80 174/113 H 08/15/17 15:59 83 16 174/113 H 98 08/15/17 14:00 83 18 151/101 H 98 08/15/17 12:52 64 18 128/73 95 08/15/17 10:05 98.2 F 86 18 142/87 100 Temp Pulse Resp BP Pulse Ox 98.4 F 80 16 113/72 96 08/18/17 07:03 08/18/17 07:03 08/18/17 07:03 08/18/17 07:03 08/17/17 07:00 Temp Pulse Resp BP Pulse Ox 98.4 F 100 H 16 140/99 H 96 08/18/17 07:03 08/19/17 09:23 08/18/17 07:03 08/19/17 09:23 08/17/17 07:00 Temp Pulse Resp BP Pulse Ox 98.4 F 83 16 141/92 H 96 08/18/17 07:03 08/21/17 08:15 08/18/17 07:03 08/21/17 08:15 08/17/17 07:00 Temp Pulse Resp BP Pulse Ox 98.0 F 72 16 122/83 96 08/25/17 07:41 08/25/17 09:38 08/25/17 07:41 08/25/17 09:38 08/22/17 06:53 DSM 5 Symptoms Update: Shortly pt is 37yo AAF with long h/o mental illness, h/o multiple admissions in the psychiatric inpatient unit (mostly in [facility], recent admission to [facility] less than two weeks ago), pt also has h/o substance use disorder, pt was admitted for evaluation and stabilization of disorganized, psychotic behavior, pt was found wondering on the streets with no shoes and pants on, pt was disorganized and psychotic, pt needed to be medicated in ED as well code Vlad was called over night in the psych inpatient unit, pt has chronic noncompliance with medications and follow up appointments. pt was seen today at the treatment team meeting, there is some positive changes with pt's presentation, pt is less manic, thought process better organized, still circumstantial though. as per staff pt takes meds, no behavioral incidents, took a shower after strong encouragement, still smells badly, pt also appears to be sexually preoccupied. . MSE: Pt deemed to be unreliable historian, pt is disorganized, poor personal hygiene , good ADLs, psychomotor agitation/retardation, speech was: mumbling, eye contact: no eye contact , mood described: "I feel great, I am working on a new poem", affect: labile, mood incongruent, thought process:disorganized, thought content: pt denied SI/ HI, pt was less paranoid, yesterday pt was paranoid "my mother wants to keep me here, she is stealing money from me", pt denied v/a/t hallucinations, insight/judgment: impaired, impulses are better controlled. Impression: schizoaffective disorder PCP abuse, r/o permanent neurological damage substance induced mood disorder alcohol use disorder tobacco abuse Treatment plan: Milieu/structure/supportive therapy Medical consult appreciated, see medical team note for more detailed info consultation for discharge plan and social issues Med management patient currently is on one-to-one observation for safety, risk of falls, disorganized behavior. Benztropine 1mg po amhs for EPS Haldol 10mg tid for psychosis in order to start Haldol Dec, pt is noncompliant with meds and f/u appts Losartan [Cozaar] 50 mg PO DAILY Nicotine 7 mg/24 hr [Nicoderm CQ] 1 patch TD DAILY tegretol 200mg po bid for mood stabilization Family involvement Follow up on labs Will monitor closely SW evaluation for d/c planning Pt was educated about risk/benefits and alternatives of medications, coping strategies (safety plan, suicide prevention), relapse prevention, importance of follow up with psychiatrist and therapist, stay away from drugs/alcohol/smoking Medication Change: No (started yesterday Tegretol) Medical Record Reviewed: Yes Mental Status Examination - Cognitive Function Orientation: Person, Place Attention: Poor Concentration: Poor Association: Loose - Mood Mood: Other ( "feeling good") - Affect Affect: Broad - Speech Speech: Appropriate (rushed but less pressured) - Formal Thought Process Formal Thought Process: Loosening of associations (overinclusive) - Suicidal Ideation Suicidal Ideation: No - Homicidal Ideation Homicidal Ideation: No Goal/Treatment Plan - Goal/Treatment Plan Need for Continued Stay: Remain at risks for inpatient hospitalization, Severe depression anxiety, Discharge may exacerbated symptoms, Failed transitioning, Severe functional impairment Estimated Date of D/C: 08/31/17 (pt is psychotic still)
[2017-08-28] MEDS: Levalbuterol 0.63 MG/3 ML Inhal Soln UD IH SCH ×4 (01:12→21:30)
[2017-08-28] MEDS: Pantoprazole 40 mg EC Tab PO SCH (06:38)
--- NOTE | 2017-08-28 08:09 | PN ---
DATE: 08/27/2017 LOCATION: The patient is seen in room 519, bed 1. SUBJECTIVE: The patient was participating in the recreational and day room activity. The patient ambulated to her room. The patient's overnight nurses' notes were reviewed. The patient had overproductive speech. The patient had been anxious and the patient has been requesting to be discharged home in order to secure section 8 housing. The patient denies any suicidal, homicidal ideation. Denies any chest pain, shortness of breath. Denies nausea, vomiting, diarrhea. PHYSICAL EXAMINATION: GENERAL: The patient is alert, awake, oriented x3. VITAL SIGNS: Reviewed. The patient is afebrile; heart rate 84, 86, 89; respirations 18-20; O2 sat is 97%, 99%, 98% and 96%; blood pressure 128/88, 136/84, 140/91. HEAD: Normocephalic, atraumatic. EENT: Shows pink conjunctivae. Anicteric sclerae. No oropharyngeal lesion. NECK: No neck rigidity. CHEST: Kyphosis. LUNGS: Examination shows no rales, crackles or wheezing. CARDIOVASCULAR: S1, S2, regular rhythm. ABDOMEN: Morbidly obese. GENITALIA: Female. RECTAL: Examination is deferred. EXTREMITIES: Show nonpitting swelling of the lower extremity. MUSCULOSKELETAL: Shows a body mass of greater than 50. Gait examination is independent. VASCULAR: Palpable pulses. PSYCHIATRIC: As per the psychiatrist's evaluation and notes. DIAGNOSTIC: None. IMAGING: None. The patient was evaluated by Psychiatry. Their recommendations were noted. DIAGNOSES: 1. Acute exacerbation of schizoaffective disorder with manic episode with overproductive speech. 2. Acute exacerbation of anxiety, depression. 3. Psychosis. 4. History of nicotine, alcohol, and polysubstance abuse and PCP abuse. 5. Hypertension. 6. Morbid obesity. 7. History of nicotine dependence and asthma versus emphysema. 8. Hypovitaminosis D. 9. History of poor compliance. 10. Bilateral nonpitting venous stasis of the lower extremity. 1. Hypertension. 2. Transient tachycardia. 3. Acute exacerbation of schizoaffective disorder. 4. Morbid obesity with elevated body mass index of 50.5. 5. Nicotine, alcohol, polysubstance abuse, and PCP use and dependence. 6. Obesity. 7. Manic episodes. 8. Hypovitaminosis D. 9. Nicotine dependence. 10. Asthma versus chronic obstructive pulmonary disease. 1. Acute exacerbation of schizoaffective disorder with psychosis. 2. Hypertension. 3. Morbid obesity with elevated body mass index of almost 49. 4. Nicotine, alcohol, and recreational drug use and PCP use. 5. Disorganized and tangential thought disorder with overproductive speech. 6. Manic episodes. 7. Anxiety disorder with overproductive pressured speech and grandiose delusion. 8. Possible chronic obstructive pulmonary disease or emphysema. 9. Hypovitaminosis D. 1. Acute exacerbation of schizoaffective disorder. 2. Intermittent manic episode with poor insight and judgment. 3. Insomnia. 4. Grandiose and manic behavior. 5. Insomnia. 6. Poor dental hygiene. 7. Over productive speech with manic behavior and tangential thought process. 8. Manic episode with racing thoughts. 9. History of poor compliance and noncompliance. 10. Rambling and over productive speech with racing thoughts and grandiose delusions. 11. Labile affect and mood with agitation with poor decision making. 12. Noncompliance with medication. 13. Episodic anxiety. 14. Morbid obesity. 15. Hypertension. 16. History of nicotine, alcohol, polysubstance abuse and dependence. 17. Obesity with elevated body mass index. 18. History of phencyclidine abuse. 1. Chronic tooth problem and probably poor dental hygiene with dental caries. 2. Acute exacerbation of schizoaffective disorder. 3. Hypertension. 4. Tachycardia. 5. Morbid obesity with elevated body mass index. 6. History of poor compliance and noncompliance. 7. History of behavioral disorder. 8. Active nicotine, alcohol, and recreational drug use and dependence, and history of PCP use. 9. Bilateral nonpitting lower extremity venous stasis. 10. History of questionable chronic obstructive pulmonary disease versus asthma. 11. Hypovitaminosis D. 1. Acute exacerbation of schizoaffective disorder with psychosis and behavioral disturbances. 2. Active nicotine, alcohol, PCP, polysubstance abuse and dependence with substance-induced mood disorder. 3. Morbid obesity. 4. Hypertension. 5. Asthma. 6. Nicotine dependence. 7. Transient tachycardia. 8. Obesity with elevated body mass index of greater than 48. 9. Hypertensive cardiovascular disease. 1. Acute exacerbation of schizophrenia with psychosis. 2. Active nicotine, alcohol, polysubstance abuse, and PCP abuse. 3. Hypertension. 4. Hypovitaminosis D. 5. Morbid obesity. 6. Questionable asthma. 7. Psychosis. 8. History of poor compliance and noncompliance with medication. 9. Questionable behavioral disorder. 10. Insomnia. 1. Acute exacerbation of schizophrenia and psychosis. 2. Questionable and possible behavioral disorder. 3. Noncompliance and poor compliance. 4. Super morbid obesity. 5. Active nicotine, alcohol and drug abuse and PCP abuse and dependence. 6. Noncompliance. 7. Hypertension. 8. Tachycardia. 9. History of asthma. 10. Hypovitaminosis D. 17. Bilateral lower extremity trace venous stasis. 18. Insomnia. 19. Hypertension. 1. Acute psychosis with episodic agitation with disorganized thought and flat affect. 2. Schizoaffective disorder. 3. Active nicotine, alcohol and PCP abuse and dependence. 4. Substance-induced mood disorder. 5. Hypertension. 6. Transient tachycardia, probably secondary to anxiety. 7. Morbid obesity with elevated body mass index of 42. 8. Insomnia. 9. Psychosis with disorganized speech. 10. Behavioral disorder with agitation. 1. Acute psychosis with disorganized, tangential speech and thoughts with gait dysfunction. 2. Morbid obesity. 3. Insomnia. 4. Anxious, restless and agitated state with anxiety. 5. History of hypertension. 6. Morbid obesity with elevated body mass index of 42. 7. Urine drug screen positive for PCP. 8. Active nicotine, alcohol and drug abuse and dependence. 9. Paranoia and auditory, visual hallucination. 10. Poor personal hygiene. 11. Psychomotor agitation and retardation. 12. Substance-induced mood disorder. 13. Schizoaffective disorder. 14. Nicotine, alcohol PCP use abuse disorder. 15. History of questionable asthma. 1. Active psychosis with behavioral disorder. 2. Active psychosis with behavioral disorder with flat affect, disorganized speech, and tangential responses. 3. Morbid obesity. 4. Hypertension. 5. Tachycardia. 6. History of chronic noncompliance. 7. Active PCP use. 8. Active alcohol, tobacco abuse, and dependence. 9. Insomnia. 1. Questionable acute exacerbation of schizoaffective disorder with bizarre behavior and behavioral disorder. 2. Chronic noncompliance and poor compliance with medication. 3. Active PCP use. 4. Substance-induced mood disorder. 5. Alcohol and tobacco use and abuse disorder. 6. Morbid obesity. 7. Transient uncontrolled hypertension. 8. Questionable altered mental status secondary to underlying psychiatric problem versus medications. 9. Active nicotine, alcohol, and substance abuse disorder. 10. Insomnia. 11. Hypertension. 12. Hypovitaminosis D. 13. Active nicotine addiction. The patient MAR from today was reviewed. The patient is to be continued on multiple psychiatric medications as per Dr. Cheema. The patient will be continued on Cozaar and Drisdol. At present, the patient will be continued on GI, DVT prophylaxis. At present, the patient's discharge will be dependent upon the Psychiatry evaluation and clearance for discharge, which I have explained to the patient in layman's language. All questions and concerns answered. Dictated and electronically signed, not read. Signing off; Colt Irizarry MD [email or web address]
--- NOTE | 2017-08-28 14:57 | PCM.BM ---
<Josselyn Goode - Last Filed: 08/28/17 14:54> Treatment Plan Problems - Problems identified on initial assessmt Delusions Date Initiated: 08/17/17 Time Initiated: 11:24 Assessment reference: NA Priority: 1 Thought Process Date Initiated: 08/17/17 Time Initiated: 11:25 Assessment reference: NA Status: Active Priority: 2 Agitated Behavior Date Initiated: 08/17/17 Time Initiated: 11:25 Assessment reference: NA Status: Active Priority: 3 Treatment assets and liabiliti Patient Assests: adapts well, cooperative, ADL independent, physically healthy, good interpersonal skills - Milieu Protocol Maintain good personal hygiene: daily Encourage regular showers, daily Remind patient to perform daily oral care, daily Assist patient to perform ADL's Maintain personal safety: every shift Educate patient to report safety concerns to staff, every shift Monitor environment for contraband/sharps Medication safety: Monitor for expected outcome, potential side effects: every shift, Assess barriers to learning: every shift, Assess readiness for medication education: every shift Milieu Narrative: * c/w current tx and plan * No new weekend labs thus far * Vitals reviewed and noted below: Selected Entries 08/22/17 08/22/17 08/22/17 06:53 06:59 17:28 Temperature 98.3 F Pulse Rate 93 H 92 H 102 H Respiratory 20 Rate Blood Pressure 147/101 H 147/101 H 137/84 O2 Sat by Pulse 96 Oximetry Oxygen Delivery Room Air Method 08/22/17 18:10 Temperature Pulse Rate 102 H Respiratory Rate Blood Pressure 137/84 O2 Sat by Pulse Oximetry Oxygen Delivery Method Family Contact Family involvement: Family/SO is involved Family contact: Telephone contact initiated by staff - Goals for Treatment Patient goals for treatment: "I just want to watch this show." Discharge/Continuing Care - Education Needs Education Needs: Patient Medication, Patient Diagnosis/Disease Process, Patient Coping Skills, Patient Health Practices/Safety, Patient Personal Hygiene/ Grooming, Patient Aftercare Safety Plan - Discharge Discharge Criteria: Tolerates medication w/o severe side effects, Reduction of target symptoms Discharge to:: Home - Treatment Team Participation Patient/Family/SO Statement: * c/w current tx and plan * No new weekend labs thus far * Vitals reviewed and noted below: Selected Entries 08/22/17 08/22/17 08/22/17 06:53 06:59 17:28 Temperature 98.3 F Pulse Rate 93 H 92 H 102 H Respiratory 20 Rate Blood Pressure 147/101 H 147/101 H 137/84 O2 Sat by Pulse 96 Oximetry Oxygen Delivery Room Air Method 08/22/17 18:10 Temperature Pulse Rate 102 H Respiratory Rate Blood Pressure 137/84 O2 Sat by Pulse Oximetry Oxygen Delivery Method Treatment Plan Review Patient participation: Yes - Problem Delusions Date Initiated: 08/28/17 Time Initiated: 14:50 Progress toward outcomes: unchanged Thought Process Date Initiated: 08/28/17 Time Initiated: 14:50 Progress toward outcomes: unchanged Agitated Behavior Date Initiated: 08/28/17 Time Initiated: 14:50 Progress toward outcomes: improved <Nkechi Read Y - Last Filed: 08/31/17 15:28> Family Contact Family contact name: Shante Rick(mother) [phone] Family contacted how many times per week?: 2
--- NOTE | 2017-08-28 20:04 | PN ---
DATE: 08/28/2017 SUBJECTIVE: The patient is seen in dayroom. The patient is sitting up in the dayroom with activity therapist. The patient is alert, awake, responsive. The patient continuously is requesting to be discharged home. I have explained to the patient that in order to be discharged home,she needs to be cleared by the psychiatrist. The patient is sitting up in the chair. The patient appears to be comfortable in no distress. The patient still has some questionable pressured speech versus overactive speech. PHYSICAL EXAMINATION: VITAL SIGNS: T-max afebrile; heart rate 84, 86, 92; respiration 18 to 20; O2 sat is 96, 98, 97; blood pressure 140/82, 138/84. HEAD: Normocephalic, atraumatic. HEENT: Shows pink conjunctivae, anicteric sclerae. No oropharyngeal lesion. No neck rigidity. CHEST: Examination is symmetrical. LUNG: Shows no rales, crackles or wheezing. CARDIOVASCULAR: S1 and S2, regular rhythm. ABDOMEN: Morbidly obese. GENITALIA: Female. RECTAL: Deferred. EXTREMITY: Shows nonpitting swelling of the lower extremity. MUSCULOSKELETAL: Shows elevated body mass index. NEUROLOGIC: The patient is alert, awake, responsive, is able to move upper and lower extremities without assistance. Gait examination was not tested. VASCULAR: Palpable pulses. PSYCHIATRIC: As per psychiatrist's note. DIAGNOSTICS: None from today. Psychiatry evaluation from yesterday noted. IMPRESSION: 1. Acute exacerbation of schizoaffective disorder with psychosis. 2. History of hypertension, history of nicotine dependence, history of asthma, history of hypovitaminosis D, history of obesity. 3. Insomnia. 4. Anxiety disorder. 5. Questionable depression. 6. Morbid obesity with elevated body mass index of greater than 50. 7. Nicotine, alcohol, and polysubstance abuse and dependence and phencyclidine use. 1. Acute exacerbation of schizoaffective disorder with manic episode with overproductive speech. 2. Acute exacerbation of anxiety, depression. 3. Psychosis. 4. History of nicotine, alcohol, and polysubstance abuse and PCP abuse. 5. Hypertension. 6. Morbid obesity. 7. History of nicotine dependence and asthma versus emphysema. 8. Hypovitaminosis D. 9. History of poor compliance. 10. Bilateral nonpitting venous stasis of the lower extremity. 1. Hypertension. 2. Transient tachycardia. 3. Acute exacerbation of schizoaffective disorder. 4. Morbid obesity with elevated body mass index of 50.5. 5. Nicotine, alcohol, polysubstance abuse, and PCP use and dependence. 6. Obesity. 7. Manic episodes. 8. Hypovitaminosis D. 9. Nicotine dependence. 10. Asthma versus chronic obstructive pulmonary disease. 1. Acute exacerbation of schizoaffective disorder with psychosis. 2. Hypertension. 3. Morbid obesity with elevated body mass index of almost 49. 4. Nicotine, alcohol, and recreational drug use and PCP use. 5. Disorganized and tangential thought disorder with overproductive speech. 6. Manic episodes. 7. Anxiety disorder with overproductive pressured speech and grandiose delusion. 8. Possible chronic obstructive pulmonary disease or emphysema. 9. Hypovitaminosis D. 1. Acute exacerbation of schizoaffective disorder. 2. Intermittent manic episode with poor insight and judgment. 3. Insomnia. 4. Grandiose and manic behavior. 5. Insomnia. 6. Poor dental hygiene. 7. Over productive speech with manic behavior and tangential thought process. 8. Manic episode with racing thoughts. 9. History of poor compliance and noncompliance. 10. Rambling and over productive speech with racing thoughts and grandiose delusions. 11. Labile affect and mood with agitation with poor decision making. 12. Noncompliance with medication. 13. Episodic anxiety. 14. Morbid obesity. 15. Hypertension. 16. History of nicotine, alcohol, polysubstance abuse and dependence. 17. Obesity with elevated body mass index. 18. History of phencyclidine abuse. 1. Chronic tooth problem and probably poor dental hygiene with dental caries. 2. Acute exacerbation of schizoaffective disorder. 3. Hypertension. 4. Tachycardia. 5. Morbid obesity with elevated body mass index. 6. History of poor compliance and noncompliance. 7. History of behavioral disorder. 8. Active nicotine, alcohol, and recreational drug use and dependence, and history of PCP use. 9. Bilateral nonpitting lower extremity venous stasis. 10. History of questionable chronic obstructive pulmonary disease versus asthma. 11. Hypovitaminosis D. 1. Acute exacerbation of schizoaffective disorder with psychosis and behavioral disturbances. 2. Active nicotine, alcohol, PCP, polysubstance abuse and dependence with substance-induced mood disorder. 3. Morbid obesity. 4. Hypertension. 5. Asthma. 6. Nicotine dependence. 7. Transient tachycardia. 8. Obesity with elevated body mass index of greater than 48. 9. Hypertensive cardiovascular disease. 1. Acute exacerbation of schizophrenia with psychosis. 2. Active nicotine, alcohol, polysubstance abuse, and PCP abuse. 3. Hypertension. 4. Hypovitaminosis D. 5. Morbid obesity. 6. Questionable asthma. 7. Psychosis. 8. History of poor compliance and noncompliance with medication. 9. Questionable behavioral disorder. 10. Insomnia. 1. Acute exacerbation of schizophrenia and psychosis. 2. Questionable and possible behavioral disorder. 3. Noncompliance and poor compliance. 4. Super morbid obesity. 5. Active nicotine, alcohol and drug abuse and PCP abuse and dependence. 6. Noncompliance. 7. Hypertension. 8. Tachycardia. 9. History of asthma. 10. Hypovitaminosis D. 17. Bilateral lower extremity trace venous stasis. 18. Insomnia. 19. Hypertension. 1. Acute psychosis with episodic agitation with disorganized thought and flat affect. 2. Schizoaffective disorder. 3. Active nicotine, alcohol and PCP abuse and dependence. 4. Substance-induced mood disorder. 5. Hypertension. 6. Transient tachycardia, probably secondary to anxiety. 7. Morbid obesity with elevated body mass index of 42. 8. Insomnia. 9. Psychosis with disorganized speech. 10. Behavioral disorder with agitation. 1. Acute psychosis with disorganized, tangential speech and thoughts with gait dysfunction. 2. Morbid obesity. 3. Insomnia. 4. Anxious, restless and agitated state with anxiety. 5. History of hypertension. 6. Morbid obesity with elevated body mass index of 42. 7. Urine drug screen positive for PCP. 8. Active nicotine, alcohol and drug abuse and dependence. 9. Paranoia and auditory, visual hallucination. 10. Poor personal hygiene. 11. Psychomotor agitation and retardation. 12. Substance-induced mood disorder. 13. Schizoaffective disorder. 14. Nicotine, alcohol PCP use abuse disorder. 15. History of questionable asthma. 1. Active psychosis with behavioral disorder. 2. Active psychosis with behavioral disorder with flat affect, disorganized speech, and tangential responses. 3. Morbid obesity. 4. Hypertension. 5. Tachycardia. 6. History of chronic noncompliance. 7. Active PCP use. 8. Active alcohol, tobacco abuse, and dependence. 9. Insomnia. 1. Questionable acute exacerbation of schizoaffective disorder with bizarre behavior and behavioral disorder. 2. Chronic noncompliance and poor compliance with medication. 3. Active PCP use. 4. Substance-induced mood disorder. 5. Alcohol and tobacco use and abuse disorder. 6. Morbid obesity. 7. Transient uncontrolled hypertension. 8. Questionable altered mental status secondary to underlying psychiatric problem versus medications. 9. Active nicotine, alcohol, and substance abuse disorder. 10. Insomnia. 11. Hypertension. 12. Hypovitaminosis D. 13. Active nicotine addiction. PLAN: At this time, the patient is to be continued on the medications as per the MAR which was reviewed. The patient is to be followed up by Psychiatry for further disposition regarding discharge clearance to home. The patient's other medications will be continued as per the MAR which is reviewed. The patient's repeat vital signs were reviewed. Blood pressure 137/92, pulse 84, afebrile, respiration 18 to 20, O2 sats 97% to 96%. Dictated and electronically signed, not read. Colt Irizarry MD [facility]
[2017-08-29 02:28] LABS: URINE BILIRUBIN NEGATIVE (NEGATIVE); URINE BLOOD NEGATIVE (NEGATIVE); URINE GLUCOSE (UA) NEGATIVE (NEGATIVE); URINE KETONE NEGATIVE (NEGATIVE); URINE LEUKOCYTE ESTERASE NEGATIVE Leu/uL (NEGATIVE); URINE PROTEIN NEGATIVE mg/dL (<30 mg/dL); URINE UROBILINOGEN 0.2 E.U./dL (<1 E.U./dL)
[2017-08-29 02:29] LABS: URINE APPEARANCE CLEAR (CLEAR); URINE COLOR YELLOW (YELLOW)
[2017-08-29] MEDS: Levalbuterol 0.63 MG/3 ML Inhal Soln UD IH SCH ×3 (08:11→23:27)
[2017-08-29] MEDS: Pantoprazole 40 mg EC Tab PO SCH (08:43)
--- NOTE | 2017-08-29 08:50 | PCM.PYCHPN ---
Psychiatric Progress Note - Psychiatric Progress Note Patient seen today, length of contact: 25 min Patient Chief Complaint: "excellent, my spirit is up" Problems Identified/Issues Discussed: I reviewed recent notes and met with patient at bedside. Patient is known to me from prior interviews during this admission. She remains well groomed and friendly. Smiles easily. Oriented to location, month and year. Speech is still rushed at times. Reports that her mood is "excellent, my spirit is up". Patient is talkative and overinclusive but can be redirected. Thought process remains a little tangential. Affect is labile however she is generally happy and in good control. Denies AVH, SI or HI. Patient denies any new discomfort or pain and indicates she has been sleeping well. She continues to tolerate her medications and denies side effects. Nursing notes indicate that patient has been elevated and talkative. She is improving and can calm down more readily. She is becoming more organized and less pressured but still rambles. +racing thoughts. There were no major behavioral issues overnight. Diagnostic Results: schizoaffective disorder PCP abuse substance induced mood disorder alcohol use disorder tobacco abuse Medication Change: No ( ) Medical Record Reviewed: Yes Mental Status Examination - Cognitive Function Orientation: Person, Place Attention: WNL Concentration: Poor Association: Loose - Mood Mood: Other ( "excellent, my spirit is up") - Affect Affect: Broad - Speech Speech: Appropriate (rushed but less pressured) - Formal Thought Process Formal Thought Process: Loosening of associations (overinclusive) - Suicidal Ideation Suicidal Ideation: No - Homicidal Ideation Homicidal Ideation: No Goal/Treatment Plan - Goal/Treatment Plan Need for Continued Stay: Remain at risks for inpatient hospitalization, Severe depression anxiety, Discharge may exacerbated symptoms, Failed transitioning, Severe functional impairment Progress Toward Problem(s) and Goals/Treatment Plan: * c/w current tx and plan * Vitals reviewed and noted below: Selected Entries 08/28/17 08/28/17 08/28/17 06:46 09:26 16:05 Temperature 98.3 F Pulse Rate 84 84 99 H Respiratory 16 Rate Blood Pressure 137/92 H 137/92 H 104/72 * New weekend labs noted below: Laboratory Results - last 24 hr 08/29/17 02:15 Urine Color Yellow Urine Appearance Clear Urine pH 6.0 Ur Specific [place] <= 1.005 Urine Protein Negative Urine Glucose (UA) Negative Urine Ketones Negative Urine Blood Negative Urine Nitrate Negative Urine Bilirubin Negative Urine Urobilinogen 0.2 Ur Leukocyte Esterase Negative Urine HCG, Qual Negative Estimated Date of D/C: 08/31/17 (pt is psychotic still)
--- NOTE | 2017-08-29 20:15 | PN ---
DATE: 08/29/2017 SUBJECTIVE: The patient is seen in the breakfast room on the 5B Psychiatry floor. The patient at present is having breakfast. The patient states that her mood is much better. The patient denies any complaints of insomnia. The patient denies any nausea, vomiting, or diarrhea. Denies any shortness of breath. Denies any chest pain. Denies any hemoptysis, hematemesis, or melena. Denies any auditory or visual hallucination. Denies any suicidal or homicidal ideation. PHYSICAL EXAMINATION: VITAL SIGNS: T-max is 98.1, pulse 76, blood pressure 128/74, respirations 16, O2 sat 99%. HEENT: Head examination normocephalic, atraumatic. HEENT examination shows pink conjunctivae, anicteric sclerae. No oropharyngeal lesion. No neck rigidity. CHEST: Symmetrical. LUNGS: Shows no rales, crackles or wheezing. CARDIOVASCULAR: S1 and S2. Regular rhythm. ABDOMEN: Morbidly obese. GENITALIA: Female. RECTAL: Deferred. EXTREMITIES: Shows nonpitting swelling of the lower extremity. No calf tenderness, no Homans sign. MUSCULOSKELETAL: Shows an elevated body mass index of greater than 50. Cranial nerves II through XII intact. Gait examination is independent. VASCULAR: Palpable pulses. PSYCHIATRIC: As per Psychiatry evaluation. The patient at present is followed up by the Psychiatry. Anticipated date of discharge is 08/31. CURRENT MEDICATIONS: Ativan 2 mg IM q.6 hours p.r.n., Benadryl 50 mg IM q.6 hours p.r.n., Cogentin or benztropine 1 mg a.m. and at bedtime, Cozaar 50 mg daily, Drisdol 50,000 weekly, Haldol 5 mg IM q.6 hours p.r.n., Haldol 10 mg a.m. and at bedtime and Haldol 10 mg 4 p.m., nicotine patch 7 mg daily, Protonix 40 mg daily, Tegretol 200 mg twice a day by Dr. Cheema, Tylenol 650 q.4 p.r.n., Xopenex nebulizer 0.63 mg 4 times a day. IMPRESSION: 1. Acute exacerbation of schizoaffective disorder with psychosis. 2. History of hypertension, history of nicotine dependence, history of asthma, history of hypovitaminosis D, history of obesity. 3. Insomnia. 4. Anxiety disorder. 5. Questionable depression. 6. Morbid obesity with elevated body mass index of greater than 50. 7. Nicotine, alcohol, and polysubstance abuse and dependence and phencyclidine use. 1. Acute exacerbation of schizoaffective disorder with manic episode with overproductive speech. 2. Acute exacerbation of anxiety, depression. 3. Psychosis. 4. History of nicotine, alcohol, and polysubstance abuse and PCP abuse. 5. Hypertension. 6. Morbid obesity. 7. History of nicotine dependence and asthma versus emphysema. 8. Hypovitaminosis D. 9. History of poor compliance. 10. Bilateral nonpitting venous stasis of the lower extremity. 1. Hypertension. 2. Transient tachycardia. 3. Acute exacerbation of schizoaffective disorder. 4. Morbid obesity with elevated body mass index of 50.5. 5. Nicotine, alcohol, polysubstance abuse, and PCP use and dependence. 6. Obesity. 7. Manic episodes. 8. Hypovitaminosis D. 9. Nicotine dependence. 10. Asthma versus chronic obstructive pulmonary disease. 1. Acute exacerbation of schizoaffective disorder with psychosis. 2. Hypertension. 3. Morbid obesity with elevated body mass index of almost 49. 4. Nicotine, alcohol, and recreational drug use and PCP use. 5. Disorganized and tangential thought disorder with overproductive speech. 6. Manic episodes. 7. Anxiety disorder with overproductive pressured speech and grandiose delusion. 8. Possible chronic obstructive pulmonary disease or emphysema. 9. Hypovitaminosis D. 1. Acute exacerbation of schizoaffective disorder. 2. Intermittent manic episode with poor insight and judgment. 3. Insomnia. 4. Grandiose and manic behavior. 5. Insomnia. 6. Poor dental hygiene. 7. Over productive speech with manic behavior and tangential thought process. 8. Manic episode with racing thoughts. 9. History of poor compliance and noncompliance. 10. Rambling and over productive speech with racing thoughts and grandiose delusions. 11. Labile affect and mood with agitation with poor decision making. 12. Noncompliance with medication. 13. Episodic anxiety. 14. Morbid obesity. 15. Hypertension. 16. History of nicotine, alcohol, polysubstance abuse and dependence. 17. Obesity with elevated body mass index. 18. History of phencyclidine abuse. 1. Chronic tooth problem and probably poor dental hygiene with dental caries. 2. Acute exacerbation of schizoaffective disorder. 3. Hypertension. 4. Tachycardia. 5. Morbid obesity with elevated body mass index. 6. History of poor compliance and noncompliance. 7. History of behavioral disorder. 8. Active nicotine, alcohol, and recreational drug use and dependence, and history of PCP use. 9. Bilateral nonpitting lower extremity venous stasis. 10. History of questionable chronic obstructive pulmonary disease versus asthma. 11. Hypovitaminosis D. 1. Acute exacerbation of schizoaffective disorder with psychosis and behavioral disturbances. 2. Active nicotine, alcohol, PCP, polysubstance abuse and dependence with substance-induced mood disorder. 3. Morbid obesity. 4. Hypertension. 5. Asthma. 6. Nicotine dependence. 7. Transient tachycardia. 8. Obesity with elevated body mass index of greater than 48. 9. Hypertensive cardiovascular disease. 1. Acute exacerbation of schizophrenia with psychosis. 2. Active nicotine, alcohol, polysubstance abuse, and PCP abuse. 3. Hypertension. 4. Hypovitaminosis D. 5. Morbid obesity. 6. Questionable asthma. 7. Psychosis. 8. History of poor compliance and noncompliance with medication. 9. Questionable behavioral disorder. 10. Insomnia. 1. Acute exacerbation of schizophrenia and psychosis. 2. Questionable and possible behavioral disorder. 3. Noncompliance and poor compliance. 4. Super morbid obesity. 5. Active nicotine, alcohol and drug abuse and PCP abuse and dependence. 6. Noncompliance. 7. Hypertension. 8. Tachycardia. 9. History of asthma. 10. Hypovitaminosis D. 17. Bilateral lower extremity trace venous stasis. 18. Insomnia. 19. Hypertension. 1. Acute psychosis with episodic agitation with disorganized thought and flat affect. 2. Schizoaffective disorder. 3. Active nicotine, alcohol and PCP abuse and dependence. 4. Substance-induced mood disorder. 5. Hypertension. 6. Transient tachycardia, probably secondary to anxiety. 7. Morbid obesity with elevated body mass index of 42. 8. Insomnia. 9. Psychosis with disorganized speech. 10. Behavioral disorder with agitation. 1. Acute psychosis with disorganized, tangential speech and thoughts with gait dysfunction. 2. Morbid obesity. 3. Insomnia. 4. Anxious, restless and agitated state with anxiety. 5. History of hypertension. 6. Morbid obesity with elevated body mass index of 42. 7. Urine drug screen positive for PCP. 8. Active nicotine, alcohol and drug abuse and dependence. 9. Paranoia and auditory, visual hallucination. 10. Poor personal hygiene. 11. Psychomotor agitation and retardation. 12. Substance-induced mood disorder. 13. Schizoaffective disorder. 14. Nicotine, alcohol PCP use abuse disorder. 15. History of questionable asthma. 1. Active psychosis with behavioral disorder. 2. Active psychosis with behavioral disorder with flat affect, disorganized speech, and tangential responses. 3. Morbid obesity. 4. Hypertension. 5. Tachycardia. 6. History of chronic noncompliance. 7. Active PCP use. 8. Active alcohol, tobacco abuse, and dependence. 9. Insomnia. 1. Questionable acute exacerbation of schizoaffective disorder with bizarre behavior and behavioral disorder. 2. Chronic noncompliance and poor compliance with medication. 3. Active PCP use. 4. Substance-induced mood disorder. 5. Alcohol and tobacco use and abuse disorder. 6. Morbid obesity. 7. Transient uncontrolled hypertension. 8. Questionable altered mental status secondary to underlying psychiatric problem versus medications. 9. Active nicotine, alcohol, and substance abuse disorder. 10. Insomnia. 11. Hypertension. 12. Hypovitaminosis D. 13. Active nicotine addiction. ASSESSMENT AND PLAN: At present, the patient is relatively medically stable from medical issues point of view. The patient needs to be cleared and stabilized from psychiatric issues prior to discharge. Dictated and electronically signed, not read. Colt Irizarry MD [id number]
[2017-08-30] MEDS: Levalbuterol 0.63 MG/3 ML Inhal Soln UD IH SCH ×3 (01:05→14:10)
[2017-08-30] MEDS: Pantoprazole 40 mg EC Tab PO SCH (07:13)
--- NOTE | 2017-08-30 09:46 | PCM.PYCHPN ---
Psychiatric Progress Note - Psychiatric Progress Note Patient seen today, length of contact: 25 min Patient Chief Complaint: "excellent, my spirit is up" Problems Identified/Issues Discussed: I reviewed recent notes and met with patient at bedside. She remains well groomed and friendly. Smiles and engages easily. She is oriented to location, month and year. Speech is still rushed at times. Reports that her mood is " extra good". Patient is talkative but less overinclusive than prior interviews. Thought process remains a little tangential. Affect is a little labile however she is generally happy and in much better control. Denies AVH, SI or HI. Patient denies any new discomfort or pain and indicates she has been sleeping well. She continues to tolerate her medications and denies side effects. Nursing notes indicate that patient has been talkative, attending groups and more predictable. She is improving and can calm down more readily. Thoughts are more organized and less pressured but still rambling. I find that patient is easily redirectable. There were no major behavioral issues over the weekend. Diagnostic Results: schizoaffective disorder PCP abuse substance induced mood disorder alcohol use disorder tobacco abuse Medication Change: No ( ) Medical Record Reviewed: Yes Mental Status Examination - Cognitive Function Orientation: Person, Place Attention: WNL Concentration: Poor Association: Loose - Mood Mood: Other ( "extra good") - Affect Affect: Broad - Speech Speech: Appropriate (rushed but less pressured) - Formal Thought Process Formal Thought Process: No Impairment - Suicidal Ideation Suicidal Ideation: No - Homicidal Ideation Homicidal Ideation: No Goal/Treatment Plan - Goal/Treatment Plan Need for Continued Stay: Remain at risks for inpatient hospitalization, Severe depression anxiety, Discharge may exacerbated symptoms, Failed transitioning, Severe functional impairment Progress Toward Problem(s) and Goals/Treatment Plan: * c/w current tx and plan * Appreciate f/u by Dr. Irizarry on 08/29/17~patient is medically stable * Vitals reviewed and noted below: Selected Entries 08/29/17 08/29/17 10:45 15:49 Temperature 98.1 F Pulse Rate 76 91 H Respiratory 16 Rate Blood Pressure 128/74 115/71 * New weekend labs noted below: Laboratory Results - last 24 hr 08/29/17 02:15 Urine Color Yellow Urine Appearance Clear Urine pH 6.0 Ur Specific [place] <= 1.005 Urine Protein Negative Urine Glucose (UA) Negative Urine Ketones Negative Urine Blood Negative Urine Nitrate Negative Urine Bilirubin Negative Urine Urobilinogen 0.2 Ur Leukocyte Esterase Negative Urine HCG, Qual Negative Estimated Date of D/C: 08/31/17 (pt is psychotic still)
[2017-08-30] MEDS: Ergocalciferol 50,000 Intl Units Cap PO SCH (10:42)
--- NOTE | 2017-08-30 22:38 | PN ---
DATE: 08/30/2017 SUBJECTIVE: The patient is seen in room 519, bed 1. The patient is lying in the bed. The patient was seen in the afternoon hours. The patient states that she is feeling tired so she is taking a afternoon nap. The patient denies any suicidal, homicidal ideation. Denies any depression. Denies any anxiety. Denies any insomnia. Overnight nurse's notes were reviewed. PHYSICAL EXAMINATION: VITAL SIGNS: T-max 98.7, pulse 84, blood pressure 114/73, O2 sat 100%. HEAD: Normocephalic, atraumatic. HEENT: Shows pink conjunctivae. Anicteric sclerae. No oropharyngeal lesion. NECK: No neck rigidity. CHEST: Symmetrical. LUNG: Shows no rales, crackles or wheezing. CARDIOVASCULAR: S1, S2, regular rhythm. ABDOMEN: Morbidly obese. GENITALIA: Female. RECTAL: Deferred. EXTREMITIES: Shows chronic nonpitting venous stasis of the lower extremity. Gait examination is independent. NEUROLOGICAL: Without any gross deficit. MUSCULOSKELETAL: Shows a body mass index of greater than 50. DIAGNOSTICS: None. IMPRESSION: 1. Acute exacerbation of schizoaffective disorder with psychosis. 2. Manic and delusional behavior. 3. Hypertension (stable). 4. Morbid obesity with elevated body mass index of greater than 50. 5. History of nicotine, alcohol, polysubstance, PCP abuse and dependence. 6. Hypovitaminosis D. 7. Chronic bilateral lower extremity nonpitting venous stasis. 8. Anxiety and depression. 9. History of multiple inpatient psychiatric hospitalization. 10. Psychosis. 11. Insomnia. 12. History of questionable asthma versus chronic obstructive pulmonary disease and smokers lung disease. PLAN: At this time, the patient is to be continued on medications as per JAN, which are: 1. Ativan 2 mg IM q.6 hours p.r.n. 2. Benadryl 50 mg IM q.6 hours p.r.n. 3. The patient is on Cogentin or benztropine 1 mg a.m. and at bedtime. 4. Cozaar 50 mg daily. 5. Drisdol 50,000 weekly. 6. Haldol 5 mg IM q. 6 hours. p.r.n. and Haldol 10 mg a.m., bedtime and 10 mg Haldol at 4 p.m. 7. Nicotine patch 7 mg daily. 8. Protonix 40 mg daily. 9. Tegretol 200 mg twice a day. 10. Tylenol 650 q.4 p.r.n. 11. Xopenex 0.63 mg nebulizer every 6 hours. The patient was advised and encouraged to increase ambulation, weight loss, compliance with medication, compliance with recommendation by psychiatry. The patient is also advised outpatient close followup with the medical physician and psychiatrist. The patient was advised cessation of smoking, alcohol and polysubstance drug use including PCP. The patient was advised weight loss. The patient was also advised to have evaluation by bariatric surgery for weight loss options. All above was discussed with the patient in layman's language. All questions concerned answered, which she acknowledged and understood. Dictated and electronically signed, not read. Colt Irizarry MD
[2017-08-31] MEDS: Levalbuterol 0.63 MG/3 ML Inhal Soln UD IH SCH ×4 (01:23→20:16)
[2017-08-31 06:34] VITALS: RESP 16
--- NOTE | 2017-08-31 08:52 | PN ---
DATE: 08/28/[address] Cheema. SUBJECTIVE: The patient was interviewed in treatment team. She appears to be somewhat hyper still along with being tangential. She did report that she has a history of bipolar disorder and schizoaffective disorder. She is denying any psychosis presently. Patient appears to be lacking an insight and presumably has poor judgement. She presently is being maintained psychotropically on Cogentin 1 mg a.m. and at bedtime, Haldol 5 mg p.r.n. along with 10 mg a.m. and at bedtime and 4 p.m. Marcelo Iglesias MD/ PhD
[2017-08-31] MEDS: Pantoprazole 40 mg EC Tab PO SCH (09:21)
[2017-08-31] MEDS ORDERED: Haloperidol Decanoate 100 mg/ml Inj IM STA (11:23)
--- NOTE | 2017-08-31 15:48 | PCM.PYCHPN ---
Psychiatric Progress Note - Psychiatric Progress Note Patient seen today, length of contact: 30 minutes Patient Chief Complaint: "I'm talking fast because I have so many thoughts Dr. Shipman" Medical Problems: asthma, obesity Diagnostic Results: 08/17/17 09:40 08/17/17 09:40 Lab Results 08/17/17 09:40: Sodium 140, Potassium 4.0, Chloride 106, Carbon Dioxide 24, Anion Gap 14, BUN 12, Creatinine 1.0, Est GFR ( Amer) > 60, Est GFR (Non- Af Amer) > 60, Random Glucose 117 H, Calcium 9.2, Magnesium 2.0, Total Bilirubin 0.3, Direct Bilirubin 0.3, AST 20, ALT 25, Alkaline Phosphatase 79, Total Protein 7.3, Albumin 3.9, Globulin 3.4, Albumin/Globulin Ratio 1.1 08/17/17 09:40: WBC 6.2, RBC 4.82, Hgb 13.4, Hct 39.9, MCV 82.8, MCH 27.8, MCHC 33.6, RDW 14.6 H, Plt Count 315, MPV 9.5, Gran % 51.1, Lymph % (Auto) 36.3 H, [place] % (Auto) 7.9 H, Eos % (Auto) 4.5, Baso % (Auto) 0.2, Gran # 3.19, Lymph # 2.3, [place] # 0.5, Eos # 0.3, Baso # 0.01 08/15/17 11:05: Urine Opiates Screen Negative, Urine Methadone Screen Negative, Ur Barbiturates Screen Negative, Ur Phencyclidine Scrn Positive H, Ur Amphetamines Screen Negative, U Benzodiazepines Scrn Negative, U Oth Cocaine Metabols Negative, U Cannabinoids Screen Negative 08/15/17 11:05: Urine Color Straw, Urine Appearance Slight-cloudy, Urine pH 7.0 , Ur Specific [place] <= 1.005, Urine Protein Negative, Urine Glucose (UA) Negative, Urine Ketones Negative, Urine Blood Negative, Urine Nitrate Negative, Urine Bilirubin Negative, Urine Urobilinogen 0.2, Ur Leukocyte Esterase Negative 08/15/17 10:53: Alcohol, Quantitative < 10 08/15/17 10:53: Salicylates < 1 L, Acetaminophen < 10.0 L 08/15/17 10:53: Sodium 142, Potassium 3.8, Chloride 108 H, Carbon Dioxide 26, Anion Gap 12, BUN 8, Creatinine 1.0, Est GFR ( Amer) > 60, Est GFR (Non- Af Amer) > 60, Random Glucose 102, Calcium 9.0, Total Bilirubin 0.3, AST 25, ALT 23, Alkaline Phosphatase 106, Total Creatine Kinase 289 H, CK-MB (CK-2) 0.9 , CK-MB (CK-2) % Cancelled, Total Protein 7.2, Albumin 3.8, Globulin 3.4, Albumin/Globulin Ratio 1.1 08/15/17 10:53: WBC 6.9, RBC 4.46, Hgb 12.5, Hct 37.0, MCV 83.0, MCH 28.0, MCHC 33.8, RDW 14.6 H, Plt Count 310, MPV 9.2, Gran % 60.6, Lymph % (Auto) 29.5, [place] % (Auto) 6.3 H, Eos % (Auto) 3.3, Baso % (Auto) 0.3, Gran # 4.17, Lymph # 2.0, [place] # 0.4, Eos # 0.2, Baso # 0.02 Vital Signs Temp Pulse Resp BP Pulse Ox 08/17/17 07:00 97.6 F 95 H 19 154/95 H 96 08/16/17 03:00 85 149/85 08/15/17 22:00 97.7 F 78 20 148/68 99 08/15/17 17:48 78 14 156/99 H 100 08/15/17 16:41 80 174/113 H 08/15/17 15:59 83 16 174/113 H 98 08/15/17 14:00 83 18 151/101 H 98 08/15/17 12:52 64 18 128/73 95 08/15/17 10:05 98.2 F 86 18 142/87 100 Temp Pulse Resp BP Pulse Ox 98.4 F 80 16 113/72 96 08/18/17 07:03 08/18/17 07:03 08/18/17 07:03 08/18/17 07:03 08/17/17 07:00 Temp Pulse Resp BP Pulse Ox 98.4 F 100 H 16 140/99 H 96 08/18/17 07:03 08/19/17 09:23 08/18/17 07:03 08/19/17 09:23 08/17/17 07:00 Temp Pulse Resp BP Pulse Ox 98.4 F 83 16 141/92 H 96 08/18/17 07:03 08/21/17 08:15 08/18/17 07:03 08/21/17 08:15 08/17/17 07:00 Temp Pulse Resp BP Pulse Ox 98.0 F 72 16 122/83 96 08/25/17 07:41 08/25/17 09:38 08/25/17 07:41 08/25/17 09:38 08/22/17 06:53 Temp Pulse Resp BP Pulse Ox 97.7 F 82 16 111/65 98 08/31/17 06:33 08/31/17 06:33 08/31/17 06:33 08/31/17 06:33 08/30/17 15:00 DSM 5 Symptoms Update: Shortly pt is 37yo AAF with long h/o mental illness, h/o multiple admissions in the psychiatric inpatient unit ([place] in [facility] [place], recent admission to [facility] [place] less than two weeks ago), pt also has h/o substance use disorder, pt was admitted for evaluation and stabilization of disorganized, psychotic behavior, pt was found wondering on the streets with no shoes and pants on, pt was disorganized and psychotic, pt needed to be medicated in ED as well code Chu was called over night in the psych inpatient unit, pt has chronic noncompliance with medications and follow up appointments. pt was seen today at the treatment team meeting, there is some positive changes with pt's presentation, pt is less manic, thought process better organized, still circumstantial though, pt has pressured speech. Pt was willing to get Haldol Dec, 100mg stat. . as per staff pt takes meds, no behavioral incidents, took a shower after strong encouragement, still smells badly, pt also appears to be sexually preoccupied. . MSE: Pt deemed to be unreliable historian, pt is disorganized, poor personal hygiene , good ADLs, psychomotor agitation/retardation, speech was: mumbling, eye contact: no eye contact , mood described: "I feel great, on top of the world", affect: labile, mood incongruent, thought process:disorganized, thought content : pt denied SI/ HI, less paranoid, pt denied v/a/t hallucinations, insight/ judgment: impaired, impulses are better controlled. Impression: schizoaffective disorder PCP abuse, r/o permanent neurological damage substance induced mood disorder alcohol use disorder tobacco abuse Treatment plan: Milieu/structure/supportive therapy Medical consult appreciated, see medical team note for more detailed info SW consultation for discharge plan and social issues Med management patient currently is on one-to-one observation for safety, risk of falls, disorganized behavior. Benztropine 1mg po amhs for EPS Haldol 10mg amhs for psychosis Haldol Dec 100mg IM today, will be given q30 days Losartan [Cozaar] 50 mg PO DAILY Nicotine 7 mg/24 hr [Nicoderm CQ] 1 patch TD DAILY tegretol 200mg po tid for mood stabilization Family involvement Follow up on labs Will monitor closely SW evaluation for d/c planning Pt was educated about risk/benefits and alternatives of medications, coping strategies (safety plan, suicide prevention), relapse prevention, importance of follow up with psychiatrist and therapist, stay away from drugs/alcohol/smoking Medication Change: Yes ( ) Medical Record Reviewed: Yes Consults ordered or reviewed: medical consult appreciated Mental Status Examination - Cognitive Function Orientation: Person, Place Attention: WNL Concentration: Poor Association: Loose - Mood Mood: Other ( "extra good") - Affect Affect: Broad - Speech Speech: Appropriate (rushed but less pressured) - Formal Thought Process Formal Thought Process: No Impairment - Suicidal Ideation Suicidal Ideation: No - Homicidal Ideation Homicidal Ideation: No Goal/Treatment Plan - Goal/Treatment Plan Need for Continued Stay: Remain at risks for inpatient hospitalization, Severe depression anxiety, Discharge may exacerbated symptoms, Failed transitioning, Severe functional impairment Estimated Date of D/C: 09/01/17 (pt got Haldol Dec today)
--- NOTE | 2017-08-31 23:03 | PN ---
DATE OF SERVICE: 08/31/2017 SUBJECTIVE: The patient is seen in the day room. The patient is sitting up, watching TV. The patient is alert, awake, responsive. The patient is seen by psychiatrist. The patient's nurses notes from the last 24 hours were reviewed. The patient denied any suicidal or homicidal ideation, denied auditory or visual hallucinations. The patient slept well. The patient denies any anxiety or depression. At present, the patient was found to be calmer. The patient is seen by the health and social care teacher. CURRENT MEDICATIONS: 1. Cogentin 1 mg in the morning and at bedtime. 2. Cozaar 50 mg daily. 3. Drisdol 50,000 weekly. 4. Haldol 10 mg in the morning and at bedtime. 5. Haldol Decanoate 100 mg IM x1 dose given. 6. Nicotine 7 mg patch daily. 7. Protonix 40 mg daily. 8. Tegretol 200 mg 3 times a day which is increased today. 9. Xopenex 0.63 mg every 6 hours. OBJECTIVE: VITAL SIGNS: T-max 98.4, 97.7, heart rate 82 to 90, blood pressure 111/65, 126/61, respiration 16, O2 saturation 98%. HEENT: Head, normocephalic, atraumatic. ENT examination shows pink conjunctivae, anicteric sclerae. No oropharyngeal lesion. NECK: No neck rigidity. CHEST: Symmetrical. LUNGS: Examination shows no rales, crackles, or wheezing. CARDIOVASCULAR: S1 and S2, regular rhythm. ABDOMEN: Soft, positive bowel sounds, obese. GENITALIA: Female. RECTAL: Deferred. EXTREMITIES: Show chronic nonpitting swelling of the lower extremity. MUSCULOSKELETAL: Examination shows a body mass index of greater than 50. NEUROLOGIC: Cranial nerves II through XII intact. Gait examination is independent. PSYCHIATRIC: As per Psychiatry notes. IMPRESSION: 1. Acute exacerbation of schizoaffective disorder. 2. Overproductive speech. 3. History of multiple psychiatric inpatient hospitalizations. 4. Disorganized psychotic behavior. 5. Status post had Haldol Decanoate treatment. 6. History of poor personal hygiene. 7. Psychomotor agitation and retardation. 8. History of nicotine, alcohol, and polysubstance abuse disorder. 9. History of PCP abuse. 10. Substance-induced mood disorder. 11. Hypertension. 12. Asthma. PLAN: At this time, the patient was seen by psychiatrist, recommends possible discharge in the morning on 09/01/2017 as the patient received Haldol Decanoate 100 mg dose today. At present, the patient's case is also referred to Control Panel Assembler for discharge planning. Colt Irizarry MD
[2017-09-01] MEDS: Levalbuterol 0.63 MG/3 ML Inhal Soln UD IH SCH ×3 (01:36→14:02)
[2017-09-01] MEDS: Pantoprazole 40 mg EC Tab PO SCH (06:41)
[2017-09-01 06:49] VITALS: PULSE 82; TEMP 97.9; O2SAT 16
[2017-09-01 10:17] VITALS: BP 123/73
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
--- NOTE | 2017-09-02 00:46 | PN ---
DATE: 09/01/2017 SUBJECTIVE: The patient is seen in room 519, bed 1. The patient is in the process of getting ready to be discharged. The patient is alert, awake, and oriented x3. The patient denies any anxiety or depression. Denies any suicidal or homicidal ideation. Denies any auditory or visual hallucination. The patient's overnight nurses notes were reviewed. PHYSICAL EXAMINATION: VITAL SIGNS: T-max 97.9, pulse 82, blood pressure 123/74, O2 sat 98%. HEENT: Head examination is normocephalic and atraumatic. HEENT examination shows pink conjunctivae. Anicteric sclerae. No oropharyngeal lesion. NECK: No neck rigidity. CHEST: Kyphosis. LUNGS: Shows no rales, crackles, or wheezing. CARDIOVASCULAR: S1 and S2, regular rhythm. ABDOMEN: Morbidly obese. GENITALIA: Female. RECTAL: Deferred. EXTREMITIES: Shows chronic nonpitting swelling of the lower extremity. Gait examination is independent. VASCULAR: Palpable pulses. NEUROLOGIC: Without any gross deficit. PSYCHIATRIC: As per the psychiatrist's evaluation. MUSCULOSKELETAL: Shows a body mass index of 51. Cranial nerves II-XII intact. The patient was seen by Health Services Coordinator, psychiatrist. The patient has been cleared for discharge by above. The patient has been advised close followup with the medical doctor and psychiatrist. The patient was advised and counseled about cessation of smoking, alcohol, and recreational drug use. The patient was advised weight loss. The patient was advised outpatient evaluation with the Bariatric Surgery if the patient feels it suitable. The patient has been cleared for discharge by Psychiatry. DISCHARGE MEDICATIONS: The patient's discharge medications are Cogentin or benztropine 1 mg a.m. and h.s., Tegretol or carbamazepine 200 mg three times a day, Drisdol 50,000 units weekly, Haldol 10 mg a.m. and h.s., and Haldol Decanoate 100 mg IM monthly, Cozaar 50 mg daily, nicotine patch 7 mg daily. In addition, the patient is also discharged on Cogentin or benztropine 1 mg a.m. and h.s., Cozaar 50 mg daily, Drisdol 50,000 units weekly, Haldol 10 mg a.m. and h.s., Haldol Decanoate 30 mg IM monthly, nicotine patch 7 mg daily, Tegretol or carbamazepine 200 mg three times a day. The patient is to be discharged today by Psychiatry. DISCHARGE INSTRUCTIONS: As above. COUNSELING: As above. Dictated and electronically signed, not read. Colt Irizarry MD
== END 2017-09-01 16:07 | disposition home or self-care (01) | DRG 430 ==
LOC: ED 09:54 → ERH 17:26 → PSYC 18:33
PROVIDERS: ADMIT Psychiatry & Neurology Psychiatry; ATTEND Psychiatry & Neurology Psychiatry
PROC: GZ3ZZZZ Medication Management (ICD-10-PCS; principal; 2017-08-16)
PROC: 3E0F7GC Introduction of Other Therapeutic Substance into Respiratory Tract, Via Natural or Artificial Opening (ICD-10-PCS; 2017-08-19)
DX: F25.9 Schizoaffective disorder, unspecified (principal); F16.14 Hallucinogen abuse with hallucinogen-induced mood disorder; F16.159 Hallucinogen abuse with hallucinogen-induced psychotic disorder, unspecified; I11.9 Hypertensive heart disease without heart failure; E66.01 Morbid (severe) obesity due to excess calories; Z68.41 Body mass index [BMI] 40.0-44.9, adult; E55.9 Vitamin D deficiency, unspecified; G47.00 Insomnia, unspecified; F41.9 Anxiety disorder, unspecified; F17.210 Nicotine dependence, cigarettes, uncomplicated; J45.909 Unspecified asthma, uncomplicated; I87.2 Venous insufficiency (chronic) (peripheral); F10.10 Alcohol abuse, uncomplicated; K02.9 Dental caries, unspecified; Z91.14 Patient's other noncompliance with medication regimen; Z91.19 Patient's noncompliance with other medical treatment and regimen

== ENCOUNTER 2017-12-14 13:02 | Inpatient (IN) | payer MEDICAID, OTHER ==
[2017-12-14 13:15] VITALS: BMI 57.5
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
[2017-12-14 14:34] LABS: HEMOGLOBIN 11.3 g/dL (12.0-16.0); MEAN CELL VOLUME 80.5 fl (80.0-105.0); MEAN CORPUSCULAR HEMOGLOBIN 26.8 pg (25.0-35.0); MEAN CORPUSCULAR HGB CONC 33.3 g/dl (31.0-37.0); MEAN PLATELET VOLUME 9.2 fl (7.0-11.0); RBC 4.21 10^6/uL (3.5-6.1); RED CELL DISTRIBUTION WIDTH 14.2 % (11.5-14.5); WHITE BLOOD COUNT 7.6 10^3/ul (4.5-11.0)
[2017-12-14 14:45] LABS: ALB/GLOB RATIO 1.1 (1.1-1.8); ALBUMIN 3.7 g/dL (3.0-4.8); ALT/SGPT 24 U/L (7-56); AST/SGOT 26 U/L (14-36); BLOOD UREA NITROGEN 9 mg/dL (7-21); CALCIUM 9.5 mg/dL (8.4-10.5); GFR AFRICAN-AMERICAN > 60; GFR NON-AFRICAN AMERICAN > 60
[2017-12-14 16:20] LABS: URINE BILIRUBIN NEGATIVE (NEGATIVE); URINE BLOOD NEGATIVE (NEGATIVE); URINE GLUCOSE (UA) NEGATIVE (NEGATIVE); URINE LEUKOCYTE ESTERASE NEGATIVE Leu/uL (NEGATIVE); URINE NITRATE NEGATIVE (NEGATIVE); URINE PROTEIN TRACE mg/dL (<30 mg/dL); URINE UROBILINOGEN 0.2 E.U./dL (<1 E.U./dL)
[2017-12-14 16:23] LABS: URINE APPEARANCE SL CLOUDY (CLEAR); URINE COLOR YELLOW (YELLOW)
[2017-12-14 16:24] LABS: HCG,QUALITATIVE URINE POSITIVE (NEGATIVE)
[2017-12-14 16:27] LABS: URINE RBC NEGATIVE /hpf (0-2); URINE WBC 0 - 2 /hpf (0-6)
[2017-12-14 16:28] LABS: URINE EPITHELIAL CELLS MANY /hpf (0-5)
[2017-12-14 16:37] LABS: BARBITURATES, UR NEGATIVE (NEGATIVE); BENZODIAZEPINES, UR NEGATIVE (NEGATIVE); OPIATES, UR NEGATIVE (NEGATIVE)
[2017-12-14 16:58] LABS: PHENCYCLIDINE, UR POSITIVE (NEGATIVE)
--- NOTE | 2017-12-14 21:02 | US ---
EXAM: US After First Trimester, Transabdominal EXAM DATE/TIME: 12/14/2017 6:50 PM CLINICAL HISTORY: 37 years old, female; Pain; complicated by abdominal or pelvic pain; Lower; Second trimester; Gestational age or lmp: Unknown LMP TECHNIQUE: Real-time transabdominal obstetrical ultrasound of the maternal pelvis and a second or third trimester with image documentation. COMPARISON: US - ABDOMEN COMPLETE 2017-12-14 18:35 FINDINGS: Limitations: Evaluation is limited by maternal body habitus. Fetus: There is a single living intrauterine gestation in variable presentation. There is a heart rate of 158 beats per minute Placenta: Placenta is posterior Amniotic fluid: Amnionic fluid volume appears normal Anatomy: Early gestational age limits evaluation of anatomy BIOMETRICS Gestational age by US: 14 weeks 4 days EFW: 107.8 g BPD: 2.75 cm, 14 weeks 6 days HC: 9.05 cm, 14 weeks 0 days AC: 9.03 cm, 15 weeks 2 days FL: 1.56 cm, 14 weeks 4 days MATERNAL: Uterus: Uterus measures approximately 11 x 7 cm. Bladder: Urinary bladder is incompletely distended. IMPRESSION: 14 week 4 day single variable position fetus, estimated date of delivery 06/10/18
--- NOTE | 2017-12-14 21:06 | US ---
EXAM: US Abdomen Complete EXAM DATE/TIME: 12/14/2017 5:27 PM CLINICAL HISTORY: 37 years old, female; Pain; Abdominal pain; ; Additional info: and abdominal pain TECHNIQUE: Real-time ultrasound of the abdomen (complete) with image documentation. COMPARISON: There are no prior studies for FINDINGS: Liver: Hepatic texture is heterogeneous. There is focal decreased attenuation in the region of the efren hepatis.There is hepatopedal flow in the main portal vein. Gallbladder: Gallbladder is distended with no stones, sludge or wall thickening. Common bile duct: Common bile duct measures approximately 4 mm in diameter. Pancreas: Pancreas is partially obscured by bowel gas. Kidneys: Kidneys are unremarkable. Spleen: Spleen is poorly visualized. Aorta: Not visualized Inferior vena cava: Not visualized IMPRESSION: Limited by patient body habitus and bowel gas, no gallstones or ductal dilatation; fatty liver with possible focal fatty sparing in the region of feren hepatis Additional nonemergent findings as described above.
--- NOTE | 2017-12-14 22:45 | ED PDOC ---
Physical Exam Vital Signs Reviewed: Yes Temperature: Afebrile Blood Pressure: Hypertensive Pulse: Tachycardic Respiratory Rate: Normal Appearance: Positive for: Comfortable Pain Distress: None Mental Status: Positive for: Alert and Oriented X 3 <Nick Cobos - Last Filed: 12/14/17 22:45> Vital Signs Temp Pulse Resp BP Pulse Ox 12/15/17 13:28 98.6 F 94 H 14 144/86 100 12/15/17 06:00 98.5 F 79 16 137/69 100 12/15/17 04:00 98.3 F 85 16 132/79 99 12/15/17 02:00 98.6 F 76 17 124/68 100 12/15/17 00:00 98.6 F 80 16 124/76 100 12/14/17 22:00 98.3 F 85 16 137/69 99 12/14/17 20:00 98.4 F 70 19 138/79 98 12/14/17 18:00 91 H 18 124/74 99 12/14/17 16:42 96 H 18 126/80 99 12/14/17 15:10 100 H 18 125/86 99 12/14/17 13:14 98.3 F 107 H 18 127/91 H 99 Medical Decision Making - Lab Interpretations I have reviewed the lab results: Yes <Nick Cobos - Last Filed: 12/14/17 22:45> <Raymundo Prasad - Last Filed: 12/15/17 18:44> ED Course and Treatment: 12/14/17 22:45 Dr. Shipman directed psychiatric worker that she prefers to do a one on one evaluation in the emergency department in the morning, will observe and reevaluate patient until morning. (Nick Cobos) 12/15/17 18:42 Please see the other note that was started on this patient for my additional comments. (Raymundo Prasad) - Lab Interpretations Lab Results: 12/14/17 14:25 12/14/17 14:25 Lab Results 12/15/17 11:12: Alcohol, Quantitative < 10 12/14/17 16:10: Blood Type Confirm O POSITIVE 12/14/17 16:10: Urine Color Yellow, Urine Appearance Sl cloudy, Urine pH 6.0, Ur Specific [place] 1.025, Urine Protein Trace H, Urine Glucose (UA) Negative, Urine Ketones 15 H, Urine Blood Negative, Urine Nitrate Negative, Urine Bilirubin Negative, Urine Urobilinogen 0.2, Ur Leukocyte Esterase Negative, Urine RBC Negative, Urine WBC 0 - 2, Ur Epithelial Cells Many, Urine HCG, Qual Positive 12/14/17 16:10: Urine Opiates Screen Negative, Urine Methadone Screen Negative, Ur Barbiturates Screen Negative, Ur Phencyclidine Scrn Positive H, Ur Amphetamines Screen Negative, U Benzodiazepines Scrn Negative, U Oth Cocaine Metabols Negative, U Cannabinoids Screen Negative 12/14/17 15:15: Blood Type O POSITIVE, Antibody Screen Negative, BBK History Checked No verified bt 12/14/17 14:25: Sodium 140, Potassium 3.5 L, Chloride 106, Carbon Dioxide 25, Anion Gap 13, BUN 9, Creatinine 0.7, Est GFR ( Amer) > 60, Est GFR (Non- Af Amer) > 60, Random Glucose 129 H, Calcium 9.5, Total Bilirubin 0.2, AST 26, ALT 24, Alkaline Phosphatase 102, Total Protein 7.2, Albumin 3.7, Globulin 3.5, Albumin/Globulin Ratio 1.1 12/14/17 14:25: WBC 7.6 D, RBC 4.21, Hgb 11.3 L D, Hct 33.9 L, MCV 80.5, MCH 26.8, MCHC 33.3, RDW 14.2, Plt Count 277, MPV 9.2 - RAD Interpretation Radiology Orders: 12/14/17 17:27 ABDOMEN COMPLETE [US] Stat 12/14/17 18:50 AGE [US] Stat - Medication Orders Current Medication Orders: Haloperidol (Haldol) 2 mg PO Q6H PRN; Protocol PRN Reason: Agitation Haloperidol Lactate (Haldol) 2 mg IM Q6H PRN; Protocol PRN Reason: Agitation - Scribe Statement The provider has reviewed the documentation as recorded by the Scribe <Nick Cobos - Last Filed: 12/14/17 22:45> <Raymundo Prasad - Last Filed: 12/15/17 18:44> - Scribe Statement Corrie Strong Provider Scribe Attestation: All medical record entries made by the Scribe were at my direction and personally dictated by me. I have reviewed the chart and agree that the record accurately reflects my personal performance of the history, physical exam, medical decision making, and the department course for this patient. I have also personally directed, reviewed, and agree with the discharge instructions and disposition. (Nick Cobos) Disposition/Present on Arrival - Present on Arrival Any Indicators Present on Arrival: Yes History of DVT/PE: No History of Uncontrolled Diabetes: No Urinary Catheter: No History of Decub. Ulcer: No History Surgical Site Infection Following: None <Nick Cobos - Last Filed: 12/14/17 22:45> - Present on Arrival Any Indicators Present on Arrival: No History of DVT/PE: No History of Uncontrolled Diabetes: No Urinary Catheter: No History of Decub. Ulcer: No - Disposition Have Diagnosis and Disposition been Completed?: Yes Disposition Time: 18:43 Patient Plan: Discharge <Raymundo Prasad - Last Filed: 12/15/17 18:44> - Disposition Diagnosis: Schizophrenia, Phencyclidine-induced psychosis, Abdominal pain, Toxic encephalopathy Disposition: HOME/ ROUTINE Patient Problems: Current Active Problems Problem Status Onset Abdominal pain Acute Phencyclidine-induced psychosis Acute Toxic encephalopathy Acute Schizophrenia Chronic Condition: GOOD Discharge Instructions (ExitCare): (ED), Polysubstance Abuse (ED) Additional Instructions: [place] Please follow up with your primary care doctor and oil processing technician in the next day. Should you have severe pain, fever, chills, shortness of breath or chest pain, return to the ER for evaluation. Take care of yourself and your baby. All the best. Referrals: Bandar Fritz MD [Primary Care Provider] - Follow up with primary Forms: [employer] ([place])
[2017-12-15 06:12] VITALS: O2SAT 100
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
[2017-12-16] MEDS: Potassium Chloride 20 mEq ER Tab PO SCH ×2 (00:12→02:06)
--- NOTE | 2017-12-16 06:44 | PCM.BM ---
<Tawana Silva - Last Filed: 12/16/17 06:45> Treatment Plan Problems - Problems identified on initial assessmt BIPOLAR DISORDER Date Initiated: 12/15/17 Time Initiated: 22:00 Assessment reference: NA Status: Active SUBSTANCE ABUSE Date Initiated: 12/15/17 Assessment reference: NA Status: Active ANXIETY Date Initiated: 12/15/17 Assessment reference: NA Status: Active Treatment assets and liabiliti Patient Assests: adapts well, cooperative, educated, self-reliant, ADL independent, physically healthy, negotiates basic needs, cognitively intact, good interpersonal skills Patient Liabilities: live alone, financial problems, dietary restrictions, substance abuse, medical problems - Milieu Protocol Maintain good personal hygiene: every other day Encourage regular showers, every shift Remind patient to perform daily oral care, every shift Assist patient to perform ADL's Maintain personal safety: every shift Educate patient to report safety concerns to staff, every shift Monitor environment for contraband/sharps Medication safety: Monitor for expected outcome, potential side effects: every shift, Assess barriers to learning: every shift, Assess readiness for medication education: every shift Family Contact Family contact: Patient agrees to contact Discharge/Continuing Care - Education Needs Education Needs: Patient Medication, Patient Diagnosis/Disease Process, Patient Coping Skills, Patient Placement options, Patient Community resources, Patient Activities of Daily Living, Patient Nutrition, Patient Uses of Medical Equipment , Patient Personal Hygiene/Grooming, Patient Aftercare Safety Plan - Discharge Discharge Criteria: Tolerates medication w/o severe side effects, Free of paranoid thoughts, Free of agitation, Normal sleep pattern, Ability to care for self <Daren Calvert - Last Filed: 12/16/17 10:08> Treatment Plan Problems - Problems identified on initial assessmt Altered Thought Process Date Initiated: 12/16/17 Time Initiated: 10:07 Assessment reference: NA Status: Active Priority: 1 Delusions Date Initiated: 12/16/17 Time Initiated: 10:07 Assessment reference: NA Status: Active Priority: 2 Agitated Behavior Date Initiated: 12/16/17 Time Initiated: 10:08 Assessment reference: NA Status: Active Priority: 3 <Ramonita Cheema - Last Filed: 12/16/17 14:53> - Diagnosis (1) Schizoaffective disorder Status: Acute Interventions: 12/16/17 14:54 Psychoeducation/psychotherapy Psychopharmacology/adjustment of medications as needed/ monitoring possible side effects Evaluate pt on daily basis Compliance with medications and follow up appointments Long acting medication if pt is noncompliant with pill form Suicide and homicide risk assessment and prevention, coping strategies, safety plan Relapse prevention Reduction of symptoms Improve functional status Possible assertive community treatment Cognitive behavioral therapy Family involvement Possible social skill training as outpatient (2) Phencyclidine-induced psychosis Status: Acute Interventions: 12/16/17 14:54 Maintaining sobriety Relapse prevention Possible rehabilitation Motivational interviewing 12-step programs: AA meetings <Nkechi Read Y - Last Filed: 12/16/17 15:41> Family Contact Family involvement: Family/SO is involved Family contact: Patient agrees to contact Family contact name: Shante Rick(mother) [phone] Family contacted how many times per week?: 2
[2017-12-16 07:30] LABS: BASO # 0.02 K/mm3 (0.0-2.0); BASO % 0.3 % (0.0-3.0); EOS # 0.3 (0.0-0.7); EOS % 4.1 % (1.5-5.0); GRAN # 4.34 (1.4-6.5); GRAN % 59.2 % (50.0-68.0); HEMOGLOBIN 11.6 g/dL (12.0-16.0); LYMPH # 2.2 (1.2-3.4); LYMPH % 29.7 % (22.0-35.0); MEAN CELL VOLUME 81.4 fl (80.0-105.0); MEAN CORPUSCULAR HEMOGLOBIN 26.9 pg (25.0-35.0); MEAN PLATELET VOLUME 9.4 fl (7.0-11.0); MONO # 0.5 (0.1-0.6); MONO % 6.7 % (1.0-6.0); RBC 4.31 10^6/uL (3.5-6.1); RED CELL DISTRIBUTION WIDTH 14.2 % (11.5-14.5); WHITE BLOOD COUNT 7.3 10^3/ul (4.5-11.0)
[2017-12-16 07:54] LABS: LDL CHOLESTEROL 54 mg/dL (0-129)
[2017-12-16 08:02] LABS: ALBUMIN 3.8 g/dL (3.0-4.8); ALT/SGPT 29 U/L (7-56); AST/SGOT 29 U/L (14-36); BILIRUBIN,DIRECT 0.4 mg/dL (0.0-0.4); BLOOD UREA NITROGEN 6 mg/dL (7-21); CALCIUM 9.8 mg/dL (8.4-10.5); GFR AFRICAN-AMERICAN > 60; GFR NON-AFRICAN AMERICAN > 60; GLUCOSE,FASTING 100 mg/dL (65-110); HDL CHOLESTEROL 97 mg/dL (29-60)
[2017-12-16] MEDS: Multivitamin Therapeutic Tab PO SCH (08:57)
[2017-12-16] MEDS ORDERED: Levalbuterol 0.63 MG/3 ML Inhal Soln UD IH PRN (11:17)
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
--- NOTE | 2017-12-16 12:10 | CP.PCM.PCO ---
Physician Communication Note - Physician Communication Note Physician Communication Note: RECOMMEND SHORE WORKER CONSULTATION
[2017-12-16 14:17] LABS: FOLATE > 20.0 ng/mL
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
[2017-12-16] MEDS: Clotrimazole 1% Cream(30 gm) TOP SCH (18:39)
--- NOTE | 2017-12-17 02:48 | PN ---
DATE: 12/16/2017 SUBJECTIVE: The patient is seen ambulating in room 517, bed 2. The patient is alert, awake, responsive. Speech is pressured. The patient has repetitive language, keeps repeating the same statement over and over again. Overnight nurse's notes were reviewed. The patient slept on an off. The patient was found to be crying and stating that she does not want her baby. "I want my baby, but she has the right to live." Emotional support and assurance was offered. PHYSICAL EXAMIATION: VITAL SIGNS: T-max 98.2; heart rate 95, 86, 102, 80; blood pressure 136/85, 104/64, 144/85, 138/70; respirations 20; O2 sat 100%. GENERAL: The patient is ambulating on the floor in the room. The patient is alert, awake, responsive. HEENT: Head examination: Normocephalic, atraumatic. HEENT examination shows pinkish pale conjunctivae, anicteric sclerae. No oropharyngeal lesion. NECK: No neck rigidity. CHEST: Examination symmetrical. LUNGS: Examination shows occasional rhonchi in upper lung osorio anteriorly and posteriorly. CARDIOVASCULAR: Examination is S1, S2, regular rhythm. ABDOMEN: Morbidly obese, I could not appreciate any hepatosplenomegaly. No guarding. No rigidity, no rebound tenderness. GENITALIA: Female. RECTAL: Examination is deferred. EXTREMITIES: Shows nonpitting swelling of the lower extremity. MUSCULOSKELETAL: Examination shows a body mass index of 56. Cranial nerves II-XII limited. Gait examination is independent. DIAGNOSTICS: From 12/16, WBC 7.3, hemoglobin/hematocrit 11.6/35.1, platelets 287. Sodium 137, potassium 4.0, chloride 102, CO2 of 25, anion gap 14, BUN 6, creatinine 0.7, GFR greater than 60, glucose 100, hemoglobin A1c 5.6, calcium 9.8, magnesium 2.0. LFTs are normal. Cholesterol 175, LDL 54, HDL 97. Beta-hCG is 30,100. TSH is 1.12. B12 level is pending. At the past... B12 is pending. RPR is negative. IMPRESSION AND PLAN: 1. Acute exacerbation of schizoaffective disorder with bipolar type. 2. Acute psychosis. 3. Normocytic anemia. 4. Hypokalemia. 5. Hyperglycemia. 6. Trace proteinuria. 7. Super morbid obesity with elevated body mass index of 56. 8. Nicotine, alcohol and polysubstance abuse and dependence and phencyclidine dependence. 9. Positive beta-HCG with intrauterine live . 10. Hepatic steatosis. 11. History of schizophrenia. 12. Tenia pedis. PLAN: At this time, the patient was seen on the Psychiatry Floor. I would again recommend the patient needs an INSTRUCTIONAL SERVICES SPECIALIST evaluation. The patient has been seen by the social media marketing manager. The patient has been requested INSTRUCTIONAL SERVICES SPECIALIST evaluation by the Psychiatry. The patient has been ordered Podiatry evaluation. CURRENT MEDICATIONS: 1. Benadryl 25 mg IM q. 6 hours p.r.n. and Benadryl 50 mg at bedtime p.r.n. 2. Folic acid 1 mg p.o. daily. 3. Haldol 5 mg IM q. 6 hours p.r.n., Haldol 5 mg 10:00 a.m., 04:00 p.m., 10:00 p.m. 4. Lac-Hydrin lotion daily to both feet. 5. Lotrimin cream to the affected area in both feet twice a day. 6. Nicotine patch 21 mg daily. 7. Multivitamin one tablet daily. 8. Xopenex nebulizer 0.63 mg q. 6 hours as needed. The patient's is on heart healthy diet. At present, the patient's further management will be dependent upon the patient's clinical condition, hemodynamic status, and as per the patient's response to therapeutic intervention. The patient's case was referred to [facility] for discharge planning. According to the Social Service notes, the patient has been actively using PCP. Dictated and electronically signed, not read. Signing off Colt Irizarry MD
[2017-12-17] MEDS: Clotrimazole 1% Cream(30 gm) TOP SCH ×2 (08:08→17:43)
[2017-12-17] MEDS: Multivitamin Therapeutic Tab PO SCH (08:48)
[2017-12-17] MEDS: Ammonium Lactate 12% Cream (140 g) TOP SCH (10:08)
--- NOTE | 2017-12-17 15:06 | PCM.PYCHPN ---
Psychiatric Progress Note - Psychiatric Progress Note Patient seen today, length of contact: 30min Patient Chief Complaint: "I wrote a song, record #[id number], do you want to hear it: did you think about us?,did you think about us?,did you think about us?,did you think about us?,did you think about us?,did you think about us?," pt was keep going and going Problems Identified/Issues Discussed: Suicide/ homicide prevention, past psychiatric h/o, current psychiatric symptoms , medical problems, risk/benefits and alternatives of medications, medications compliance, coping strategies, substance abuse h/o, relapse prevention, importance of follow up with psychiatrist and therapist, discharge plan. Medical Problems: pt has obesity foot fungal infection pt is see note for more detailed information Diagnostic Results: 12/16/17 07:00 12/16/17 07:00 Lab Results 12/17/17 08:15: Vitamin B12 575 12/16/17 07:00: Hemoglobin A1c 5.6 12/16/17 07:00: WBC 7.3, RBC 4.31, Hgb 11.6 L, Hct 35.1 L, MCV 81.4, MCH 26.9, MCHC 33.0, RDW 14.2, Plt Count 287, MPV 9.4, Gran % 59.2, Lymph % (Auto) 29.7, [place] % (Auto) 6.7 H, Eos % (Auto) 4.1, Baso % (Auto) 0.3, Gran # 4.34, Lymph # ( Auto) 2.2, [place] # (Auto) 0.5, Eos # (Auto) 0.3, Baso # (Auto) 0.02 12/16/17 07:00: RPR Nonreactive 12/16/17 07:00: TSH 3rd Generation 1.12, Beta HCG, Quant 83665.00 H 12/16/17 07:00: Sodium 137, Potassium 4.0, Chloride 102, Carbon Dioxide 25, Anion Gap 14, BUN 6 L, Creatinine 0.7, Est GFR ( Amer) > 60, Est GFR (Non -Af Amer) > 60, Random Glucose 100, Fasting Glucose 100, Calcium 9.8, Magnesium 2.0, Total Bilirubin 0.4, Direct Bilirubin 0.4, AST 29, ALT 29, Alkaline Phosphatase 71, Total Protein 7.6, Albumin 3.8, Globulin 3.8, Albumin/Globulin Ratio 1.0 L, Triglycerides 54, Cholesterol 175, LDL Cholesterol Direct 54, HDL Cholesterol 97 H, Folate > 20.0 12/15/17 11:12: Alcohol, Quantitative < 10 12/14/17 16:10: Blood Type Confirm O POSITIVE 12/14/17 16:10: Urine Color Yellow, Urine Appearance Sl cloudy, Urine pH 6.0, Ur Specific [place] 1.025, Urine Protein Trace H, Urine Glucose (UA) Negative, Urine Ketones 15 H, Urine Blood Negative, Urine Nitrate Negative, Urine Bilirubin Negative, Urine Urobilinogen 0.2, Ur Leukocyte Esterase Negative, Urine RBC Negative, Urine WBC 0 - 2, Ur Epithelial Cells Many, Urine HCG, Qual Positive 12/14/17 16:10: Urine Opiates Screen Negative, Urine Methadone Screen Negative, Ur Barbiturates Screen Negative, Ur Phencyclidine Scrn Positive H, Ur Amphetamines Screen Negative, U Benzodiazepines Scrn Negative, U Oth Cocaine Metabols Negative, U Cannabinoids Screen Negative 12/14/17 15:15: Blood Type O POSITIVE, Antibody Screen Negative, BBK History Checked No verified bt 12/14/17 14:25: Sodium 140, Potassium 3.5 L, Chloride 106, Carbon Dioxide 25, Anion Gap 13, BUN 9, Creatinine 0.7, Est GFR ( Amer) > 60, Est GFR (Non- Af Amer) > 60, Random Glucose 129 H, Calcium 9.5, Total Bilirubin 0.2, AST 26, ALT 24, Alkaline Phosphatase 102, Total Protein 7.2, Albumin 3.7, Globulin 3.5, Albumin/Globulin Ratio 1.1 12/14/17 14:25: WBC 7.6 D, RBC 4.21, Hgb 11.3 L D, Hct 33.9 L, MCV 80.5, MCH 26.8, MCHC 33.3, RDW 14.2, Plt Count 277, MPV 9.2 Vital Signs Temp Pulse Resp BP Pulse Ox 12/16/17 16:00 95 H 136/85 12/16/17 07:09 97.9 F 86 20 104/64 12/15/17 22:42 98.2 F 102 H 20 144/85 12/15/17 22:16 20 12/15/17 19:00 97.8 F 80 18 138/70 100 12/15/17 17:07 98.9 F 80 16 147/83 100 12/15/17 13:28 98.6 F 94 H 14 144/86 100 12/15/17 06:00 98.5 F 79 16 137/69 100 12/15/17 04:00 98.3 F 85 16 132/79 99 12/15/17 02:00 98.6 F 76 17 124/68 100 12/15/17 00:00 98.6 F 80 16 124/76 100 12/14/17 22:00 98.3 F 85 16 137/69 99 12/14/17 20:00 98.4 F 70 19 138/79 98 12/14/17 18:00 91 H 18 124/74 99 12/14/17 16:42 96 H 18 126/80 99 12/14/17 15:10 100 H 18 125/86 99 12/14/17 13:14 98.3 F 107 H 18 127/91 H 99 DSM 5 Symptoms Update: Shortly pt is 37yo AAF with long h/o mental illness, h/o multiple admissions in the psychiatric inpatient unit [place] [facility] to [facility] in [place] 2017), pt also has h/o substance use disorder, pt was admitted for evaluation and stabilization of disorganized, psychotic behavior, initially pt came for evaluation of abdominal pain, in ED pt presented to be disorganized, psychotic, this technical writer and editor suggested [facility] [place], during awaiting for [facility] screening pt required to be medicated with Haldol 2mg PO, then pt was evaluated and pt was found to be not committable, pt was offered voluntary admission to [facility], pt agreed to sign in, then over night pt decided to leave the hospital and signed 48hr notice. pt was seen and examined at am at the treatment team room. pt presented better in her hygiene and mild improvement with her thought process. pt still disorganized, grandiose, said that she is writing songs, pt identify her self with JZ, pt said that she is very creative and talented, "look , this is my creation, I am very proud of myself", pt sowed piece of paper with simple [place] and line beneath, when this technical writer and editor asked what is this stand for, pt said "don't you know? it represents me". pt 's speech is very disorganized, and repetitive. pt rescinded 48hr notice today. family meeting requested. as per staff pt is compliant with meds and unit rules and regulations. OB and Contractor [employer] did not evaluate pt yet, RN was advised to call and request the consult again. Podiatry consult called. pt tolerates meds well, no side effects observed or reported, AIMS 0, no EPS. yesterday pt wanted to have an , but today she wants to keep . pt was educated about risk/benefits and alternatives of meds. Impression: Schizoaffective disorder PCP abuse Medication Change: Yes (resumed) Medical Record Reviewed: Yes Consults ordered or reviewed: medical and podiatry consults appreciated Mental Status Examination - Cognitive Function Orientation: Person Memory: Impaired Attention: Poor Concentration: Poor Association: Loose Fund of Knowledge: Poor - Mood Mood: Depressed ("I am not depressed") - Affect Affect: Other (labile) - Speech Speech: Pressured - Formal Thought Process Formal Thought Process: Delusions, Paranoia, Loosening of associations, Circumstantial, Perservation - Suicidal Ideation Suicidal Ideation: No - Homicidal Ideation Homicidal Ideation: No Goal/Treatment Plan - Goal/Treatment Plan Need for Continued Stay: Remain at risks for inpatient hospitalization, Severe depression anxiety, Discharge may exacerbated symptoms, Failed transitioning, Severe functional impairment Progress Toward Problem(s) and Goals/Treatment Plan: Milieu/structure/supportive therapy meds confirmed OB&Contractor [employer] called (pt is psychotic, disorganized, pt wants to have an , this wrier cannot exclude pt might change her mind and wants to keep ) . Podiatry consult called Haldol 5mg po tid continued for psychosis (pt was on 5mg po am and 10mg po hs, confirmed, see HPI) PRN meds benadryl as needed for insomnia MVI () Folic acid SW evaluation pt submitted 48hr notice, pt was screened by [facility] [place], was not found to be committable Family involvement will monitor closely Pt was educated about risk/benefits and alternatives of medications, coping strategies (safety plan, suicide prevention), relapse prevention, importance of follow up with psychiatrist and therapist, stay away from drugs/alcohol/smoking Estimated Date of D/C: 12/22/17
--- NOTE | 2017-12-17 18:06 | CARD ---
APPROVED REPORT EKG Measurement Heart [id number] <Conclusion> Normal sinus rhythm Normal ECG
--- NOTE | 2017-12-18 01:17 | PN ---
DATE: 12/17/2017 SUBJECTIVE: The patient is seen in hallway of the psychiatry floor 517. The patient is also seen and examined in the room 517, bed 2. Patient is constantly repeating the same sentence, stating "how are you Dr. Irizarry, how are you Dr. Irizarry, how are you Dr. Irizarry." Patient is constantly repeating the sentence. In addition, I asked the patient about the patient's review of symptoms. The patient denies any chest pain, denies shortness of breath, denies nausea, vomiting, diarrhea or constipation. In between, the patient also stated that she is worried about the baby in her state. Overnight nurse's notes were reviewed. heart sound was monitored. The patient's case was referred. The patient was seen by the Manual Control Auger Press Operator. According to the nurses' note, the patient urinated on the floor. PHYSICAL EXAMINATION: VITAL SIGNS: T-max 97.9; heart rate 86, 95; blood pressure 142/91, 136/85, 144/85; respiration 20; O2 sat is 100%. HEENT: The patient's head examination normocephalic, atraumatic. Pinkish pale conjunctivae. Anicteric sclerae. No oropharyngeal lesion. NECK: No neck rigidity. CHEST: Kyphosis. LUNGS: No rales, crackles or wheezing. CARDIOVASCULAR: S1, S2, regular rhythm. ABDOMEN: Morbidly obese. EXTREMITIES: Lower extremity shows chronic nonpitting swelling, no edema noted. MUSCULOSKELETAL: Body mass index of 56. NEUROLOGIC: The patient is alert, awake, responsive, ambulating independently. Gait examination is independent. Speech appears to be pressured and repetitive. DIAGNOSTIC DATA: None from today. B12 level is back, which is 575. A1c 5.6. RPR is nonreactive. IMPRESSION AND PLAN: 1. Schizoaffective bipolar type disorder. 2. Repetitive disorganized speech. 3. Phencyclidine abuse. 4. Hypertension. 5. Questionable behavioral disorder. 6. Normocytic anemia. 7 . 8. Questionable prediabetic with hemoglobin A1c of 5.6. 9. Trace proteinuria and ketonuria. 10. Urine drug screen positive for phencyclidine. 11. Intrauterine live 14-week gestation and . 12. Morbid obesity with poor compliance. 13. Super morbid obesity with body mass index of 56. 14. Tenia pedis. 15. Poor compliance and noncompliance. 16. History of multiple inpatient psychiatric hospitalizations. 17. Psychosis and disorganized. 18. Alcohol and nicotine and drug abuse and dependence and phencyclidine dependence. PLAN: At this time, the patient is seeking . The patient is still awaiting ARCHITECT MARINE evaluation. CURRENT MEDICATIONS: Benadryl 25 mg p.o. at bedtime, Benadryl 25 mg IM q. 6 hours p.r.n., folic acid 1 mg daily Haldol 5 mg IM q .6 hours, Haldol 10 mg a.m.`and at bedtime, Lac-Hydrin lotion to the affected area, Lotrimin cream 1% twice a day, nicotine patch 21 mg daily, multivitamin 1 tablet daily, Xopenex nebulizer 0.63 mg every 6 hours. At present, the patient is otherwise medically stable. Dictated and electronically signed, not read. Colt Irizarry MD
[2017-12-18] MEDS: Ammonium Lactate 12% Cream (140 g) TOP SCH (07:54)
[2017-12-18] MEDS: Clotrimazole 1% Cream(30 gm) TOP SCH ×2 (07:54→17:05)
[2017-12-18] MEDS: Multivitamin Therapeutic Tab PO SCH (07:56)
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
[2017-12-18] MEDS: DiphenhydrAMINE 50 mg/ml Inj IM PRN (14:42)
--- NOTE | 2017-12-18 15:36 | PCM.PYCHPN ---
Psychiatric Progress Note - Psychiatric Progress Note Patient seen today, length of contact: 30min Patient Chief Complaint: " , ......, ......, ......, ......, ......, ......, ......, ......, , ......" Problems Identified/Issues Discussed: Suicide/ homicide prevention, past psychiatric h/o, current psychiatric symptoms , medical problems, risk/benefits and alternatives of medications, medications compliance, coping strategies, substance abuse h/o, relapse prevention, importance of follow up with psychiatrist and therapist, discharge plan. Medical Problems: pt has obesity foot fungal infection pt is see note for more detailed information Diagnostic Results: 12/16/17 07:00 12/16/17 07:00 Lab Results 12/17/17 08:15: Vitamin B12 575 12/16/17 07:00: Hemoglobin A1c 5.6 12/16/17 07:00: WBC 7.3, RBC 4.31, Hgb 11.6 L, Hct 35.1 L, MCV 81.4, MCH 26.9, MCHC 33.0, RDW 14.2, Plt Count 287, MPV 9.4, Gran % 59.2, Lymph % (Auto) 29.7, [place] % (Auto) 6.7 H, Eos % (Auto) 4.1, Baso % (Auto) 0.3, Gran # 4.34, Lymph # ( Auto) 2.2, [place] # (Auto) 0.5, Eos # (Auto) 0.3, Baso # (Auto) 0.02 12/16/17 07:00: RPR Nonreactive 12/16/17 07:00: TSH 3rd Generation 1.12, Beta HCG, Quant 03037.00 H 12/16/17 07:00: Sodium 137, Potassium 4.0, Chloride 102, Carbon Dioxide 25, Anion Gap 14, BUN 6 L, Creatinine 0.7, Est GFR ( Amer) > 60, Est GFR (Non -Af Amer) > 60, Random Glucose 100, Fasting Glucose 100, Calcium 9.8, Magnesium 2.0, Total Bilirubin 0.4, Direct Bilirubin 0.4, AST 29, ALT 29, Alkaline Phosphatase 71, Total Protein 7.6, Albumin 3.8, Globulin 3.8, Albumin/Globulin Ratio 1.0 L, Triglycerides 54, Cholesterol 175, LDL Cholesterol Direct 54, HDL Cholesterol 97 H, Folate > 20.0 12/15/17 11:12: Alcohol, Quantitative < 10 12/14/17 16:10: Blood Type Confirm O POSITIVE 12/14/17 16:10: Urine Color Yellow, Urine Appearance Sl cloudy, Urine pH 6.0, Ur Specific [place] 1.025, Urine Protein Trace H, Urine Glucose (UA) Negative, Urine Ketones 15 H, Urine Blood Negative, Urine Nitrate Negative, Urine Bilirubin Negative, Urine Urobilinogen 0.2, Ur Leukocyte Esterase Negative, Urine RBC Negative, Urine WBC 0 - 2, Ur Epithelial Cells Many, Urine HCG, Qual Positive 12/14/17 16:10: Urine Opiates Screen Negative, Urine Methadone Screen Negative, Ur Barbiturates Screen Negative, Ur Phencyclidine Scrn Positive H, Ur Amphetamines Screen Negative, U Benzodiazepines Scrn Negative, U Oth Cocaine Metabols Negative, U Cannabinoids Screen Negative 12/14/17 15:15: Blood Type O POSITIVE, Antibody Screen Negative, BBK History Checked No verified bt 12/14/17 14:25: Sodium 140, Potassium 3.5 L, Chloride 106, Carbon Dioxide 25, Anion Gap 13, BUN 9, Creatinine 0.7, Est GFR ( Amer) > 60, Est GFR (Non- Af Amer) > 60, Random Glucose 129 H, Calcium 9.5, Total Bilirubin 0.2, AST 26, ALT 24, Alkaline Phosphatase 102, Total Protein 7.2, Albumin 3.7, Globulin 3.5, Albumin/Globulin Ratio 1.1 12/14/17 14:25: WBC 7.6 D, RBC 4.21, Hgb 11.3 L D, Hct 33.9 L, MCV 80.5, MCH 26.8, MCHC 33.3, RDW 14.2, Plt Count 277, MPV 9.2 Vital Signs Temp Pulse Resp BP Pulse Ox 12/16/17 16:00 95 H 136/85 12/16/17 07:09 97.9 F 86 20 104/64 12/15/17 22:42 98.2 F 102 H 20 144/85 12/15/17 22:16 20 12/15/17 19:00 97.8 F 80 18 138/70 100 12/15/17 17:07 98.9 F 80 16 147/83 100 12/15/17 13:28 98.6 F 94 H 14 144/86 100 12/15/17 06:00 98.5 F 79 16 137/69 100 12/15/17 04:00 98.3 F 85 16 132/79 99 12/15/17 02:00 98.6 F 76 17 124/68 100 12/15/17 00:00 98.6 F 80 16 124/76 100 12/14/17 22:00 98.3 F 85 16 137/69 99 12/14/17 20:00 98.4 F 70 19 138/79 98 12/14/17 18:00 91 H 18 124/74 99 12/14/17 16:42 96 H 18 126/80 99 12/14/17 15:10 100 H 18 125/86 99 12/14/17 13:14 98.3 F 107 H 18 127/91 H 99 Laboratory Results - last 24 hr 12/18/17 10:20 Total Creatine Kinase 150 DSM 5 Symptoms Update: Shortly pt is 37yo AAF with long h/o mental illness, h/o multiple admissions in the psychiatric [place] [facility] [place] [facility] [place] pt also has h/o substance use disorder, pt was admitted for evaluation and stabilization of disorganized, psychotic behavior, initially pt came for evaluation of abdominal pain, in ED pt presented to be disorganized, psychotic, this literary writer suggested [facility] [place] during awaiting for [facility] [place] pt required to be medicated with Haldol 2mg PO, then pt was evaluated and pt was found to be not committable, pt was offered voluntary admission [place] [facility] [place], pt agreed to sign in, then over night pt decided to leave the hospital and signed 48hr notice. pt was seen and examined at am at the [facility] area, pt seems to be little better , thought process is little more organized. at the same time pt could urinate on the floor or describe her bowl movements in details. over night pt submitted 48hr notice then rescinded it (this is second time already, pt seems to be undecisive). In regards of her , pt wanted to have an at the time of admission, today pt wants to keep the , from this literary writer perspective pt needs to be more stabilized from the mental stand point and make right decision for herself. family meeting with pt's mother Shante Jiang [phone] took place today at am pt gave permission to talk to her and disclose info as per mother "my daughter is not in right stage of mind now", pt was lost in the community about a week ago, "I cannot take her home in this condition", pt' s mother said that pt got section 8apt and apt will be ready by the next week. mother said that pt was "doing just fine up until age of 20, but she was introduced to the drugs", usually it takes up to 3 weeks for the patient to start feeling better. Pt's mother said that when pt was better she wanted to terminate her and even have a tubal ligation. pt's mother also let this literary writer know that she is a POA for the pt, this literary writer advised mother to brig documents and staff was educated to file it in the chart. as per staff pt is compliant with meds and unit rules and regulations, but yesterday pt was agitated over night because she was hungry. OB and Yard Truck Driver team evaluated pt, consult, input appreciated. see notes. Podiatry consult appreciated. medical consult appreciated. pt tolerates meds well, no side effects observed or reported, AIMS 0, no EPS. pt was educated about risk/benefits and alternatives of meds. Impression: Schizoaffective disorder PCP abuse Medication Change: Yes (haldol was increased by 5mg) Medical Record Reviewed: Yes Consults ordered or reviewed: medical and podiatry consults appreciated OB consult appreciated Mental Status Examination - Cognitive Function Orientation: Person Memory: Impaired Attention: Poor Concentration: Poor Association: Loose Fund of Knowledge: Poor - Mood Mood: Depressed ("I am not depressed") - Affect Affect: Other (labile) - Speech Speech: Pressured - Formal Thought Process Formal Thought Process: Delusions (delusions of grandour), Loosening of associations, Circumstantial, Perservation - Suicidal Ideation Suicidal Ideation: No - Homicidal Ideation Homicidal Ideation: No Goal/Treatment Plan - Goal/Treatment Plan Need for Continued Stay: Remain at risks for inpatient hospitalization, Severe depression anxiety, Discharge may exacerbated symptoms, Failed transitioning, Severe functional impairment Progress Toward Problem(s) and Goals/Treatment Plan: Milieu/structure/supportive therapy meds confirmed OB&Yard Truck Driver called, input appreciated Podiatry consult called, consult appreciated Haldol 5mg po tid will be increased to 10mg amhs for psychosis PRN meds benadryl as needed for insomnia MVI () Folic acid SW evaluation pt submitted 48hr noticeX 2, but rescined Pt was screened [place] [facility] [place], was not found to be committable Family involvement will monitor closely family meeting appreciated, awaiting for the legal documents indicating pt's mother is POA Pt was educated about risk/benefits and alternatives of medications, coping strategies (safety plan, suicide prevention), relapse prevention, importance of follow up with psychiatrist and therapist, stay away from drugs/alcohol/smoking Estimated Date of D/C: 12/23/17
--- NOTE | 2017-12-19 09:09 | PCM.PYCHPN ---
Psychiatric Progress Note - Psychiatric Progress Note Patient seen today, length of contact: 25 min Patient Chief Complaint: Patient is elevated Problems Identified/Issues Discussed: I reviewed assessment and recent notes. Attempted to interview patient at bedside however she is quite elevated and observed talking to herself and laughing out loud. This goes on for a while, even when she is seen again at the nurses station. Patient denies any new concerns, pain or discomfort. She won't discuss why she is laughing, states "you wont understand". She exhibits FOI and thought process is tangential and rambling despite attempts at redirection. She has "no idea" what month and year it is and this doesn't appear to concern her . Staff notes indicate that patient is still disorganized but visible and social on the unit. Generally pleasant and talkative. Compliant with medications. There were no other major behavioral issues and patient did sleep approximately half the night (according to her roommate) Diagnostic Results: Schizoaffective disorder PCP abuse Medication Change: Yes (haldol was increased by 5mg) Medical Record Reviewed: Yes Mental Status Examination - Cognitive Function Orientation: Person Memory: Impaired Attention: Poor Concentration: Poor Association: Loose Fund of Knowledge: Poor - Mood Mood: Depressed ("I am not depressed") - Affect Affect: Broad, Other (labile) - Speech Speech: Pressured - Formal Thought Process Formal Thought Process: Hallucinations (Appears to be responding to internal stimuli), Delusions (delusions of grandour), Loosening of associations, Circumstantial, Perservation - Suicidal Ideation Suicidal Ideation: No - Homicidal Ideation Homicidal Ideation: No Goal/Treatment Plan - Goal/Treatment Plan Need for Continued Stay: Remain at risks for inpatient hospitalization, Severe depression anxiety, Discharge may exacerbated symptoms, Failed transitioning, Severe functional impairment Progress Toward Problem(s) and Goals/Treatment Plan: * c/w current tx and plan * c/w Haldol 10 mg AM/HS and benadryl 50 mg HS. Due to will continue to be conservative with medication changes unless patient demonstrates potentially dangerous behavior to herself or others. * No new weekend labs thus far * Vitals reviewed and noted below: 12/18/17 12/18/17 07:41 15:00 Temperature 98.0 F Pulse Rate 101 H 115 H Respiratory 20 Rate Blood Pressure 140/103 H 121/76 Estimated Date of D/C: 12/23/17
[2017-12-19] MEDS: Multivitamin Therapeutic Tab PO SCH (09:13)
[2017-12-19] MEDS: Clotrimazole 1% Cream(30 gm) TOP SCH ×2 (09:14→16:05)
[2017-12-19] MEDS: Ammonium Lactate 12% Cream (140 g) TOP SCH (09:14)
--- NOTE | 2017-12-19 15:24 | PN ---
DATE: 12/19/2017 SUBJECTIVE: The patient is seen ambulating in the hallway on the psychiatry floor. The patient is alert, awake, responsive. The patient is crying in the hallway. Overnight nurse's notes were reviewed. The patient's behavior was found to be cooperative, socializing. PHYSICAL EXAMINATION: GENERAL: The patient was found to be crying. VITAL SIGNS: T-max 98; heart rate 101/115; blood pressure 140/103, 121/76; respirations 20 and O2 sat 100%. HEENT: Head Examination normocephalic, atraumatic. HEENT examination shows pinkish conjunctivae. Anicteric sclerae. No oropharyngeal lesion. NECK: No neck rigidity. Neck is short and supple. CHEST: Kyphosis. LUNGS: Examination shows no rales, crackles or wheezing. CARDIOVASCULAR: S1, S2. Regular rhythm. No audible murmur, gallop or rub noted at this time. ABDOMEN: Morbidly obese. Blood type is O+. NEUROLOGIC: Cranial nerves II through XII intact. DIAGNOSTIC DATA: None from today. IMPRESSION AND PLAN: 1. Schizoaffective bipolar disorder. 2. Repetitive disorganized speech. 3. Nicotine, alcohol and phencyclidine abuse. 4. Morbid obesity. 5. Hypertension. 6. Questionable behavioral disorder. 7. Normocytic anemia. 8. Prediabetes with hemoglobin A1c of 5.6. 9. Tachycardia. 10. Anxiety. 11. Normocytic anemia. 12. Hypokalemia. 13. Trace proteinuria and ketonuria. 14. Urine drug screen positive for phencyclidine. 15. Intrauterine live 14-week gestation and . 16. Super morbid obesity with body mass index of 56. 17. Tenia pedis. 18. Poor compliance and noncompliance. 19. History of multiple inpatient psychiatric hospitalizations. 20. Psychosis and disorganized thought disorder. 21. Alcohol, nicotine and polysubstance drug abuse dependence and phencyclidine use and dependence. 22. Morbid obesity. 23. Nicotine dependence. PLAN: At this time, the patient will be continued on . The patient's current medications: Benadryl 25 mg IM q. 6 hours p.r.n., Benadryl 50 mg at bedtime p.r.n., folic acid 1 mg daily, Haldol 5 mg IM q. 6 hours p.r.n., Haldol 10 mg a.m. and at bedtime, Lac-Hydrin lotion to the feet, Lotrimin cream 1% to the feet twice a day, nicotine patch 21 mg daily, multivitamin 1 tablet daily, Xopenex 0.63 mg every 6 hours p.r.n. At present, the patient's case is already referred to Straight Knife Machine Cutter for discharge planning. Dictated and electronically signed, not read. Colt Irizarry MD
[2017-12-20] MEDS: Clotrimazole 1% Cream(30 gm) TOP SCH ×2 (08:07→17:36)
[2017-12-20] MEDS: Ammonium Lactate 12% Cream (140 g) TOP SCH (08:07)
[2017-12-20] MEDS: Multivitamin Therapeutic Tab PO SCH (08:07)
--- NOTE | 2017-12-20 16:50 | PCM.PYCHPN ---
Psychiatric Progress Note - Psychiatric Progress Note Patient seen today, length of contact: 25 min Patient Chief Complaint: Patient is elevated Problems Identified/Issues Discussed: I reviewed recent notes which indicate that patient remains elevated, labile and friendly. Staff notes indicate that her behavior did appear to calm down a little during the day yesterday though she still demonstrated episodes of gary with singing, laughing and dancing. Notes also indicate that she remains disorganized, sexually preoccupied and impulsive. There were no reports of aggression or agitation on the unit. Patient was seen in the hallway today. She is labile, loud, hyper and emotional. She laughs and cries with no clear reason within the same interview. Her thought process remains tangential and incoherent at times. She has a tendency to ramble unintelligibly so it is difficult to maintain a productive and informative interview with her despite attempts at redirection. Staff notes indicate that patient can be pleasant and talkative. Compliant with medications. There were no other major behavioral issues over the weekend. Diagnostic Results: Schizoaffective disorder PCP abuse Medication Change: Yes (haldol was increased by 5mg) Medical Record Reviewed: Yes Mental Status Examination - Cognitive Function Orientation: Person Memory: Impaired Attention: Poor Concentration: Poor Association: Loose Fund of Knowledge: Poor - Mood Mood: Depressed ("I am not depressed") - Affect Affect: Broad, Other (labile) - Speech Speech: Pressured - Formal Thought Process Formal Thought Process: Hallucinations (Appears to be responding to internal stimuli), Delusions (delusions of grandour), Loosening of associations, Circumstantial, Perservation - Suicidal Ideation Suicidal Ideation: No - Homicidal Ideation Homicidal Ideation: No Goal/Treatment Plan - Goal/Treatment Plan Need for Continued Stay: Remain at risks for inpatient hospitalization, Severe depression anxiety, Discharge may exacerbated symptoms, Failed transitioning, Severe functional impairment Progress Toward Problem(s) and Goals/Treatment Plan: * c/w current tx and plan * c/w Haldol 10 mg AM/HS and benadryl 50 mg HS. Due to will continue to be conservative with medication changes unless patient demonstrates potentially dangerous behavior to herself or others. * Appreciate f/u by Dr. Irizarry on 12/19/17~please refer to note for more details * No new weekend labs * Vitals reviewed and noted below: Selected Entries 12/20/17 07:25 Temperature 98.5 F Pulse Rate 94 H Respiratory 20 Rate Blood Pressure 98/44 L Estimated Date of D/C: 12/23/17
[2017-12-20] MEDS: Levalbuterol 0.63 MG/3 ML Inhal Soln UD IH SCH (20:08)
[2017-12-20] MEDS: DiphenhydrAMINE 50 mg/ml Inj IM PRN (22:37)
--- NOTE | 2017-12-21 00:02 | PN ---
DATE: 12/20/2017 SUBJECTIVE: The patient was seen in room 517, bed 2. The patient appears to be much relaxed and calm. No repetitive language was noted and no repetitive speech was noted. The patient's overnight nurse's notes were reviewed. PHYSICAL EXAMINATION: VITAL SIGNS: T-max 98.5; heart rate 94; blood pressure 121/76, 198/44; respirations 20. GENERAL: The patient is ambulating in the room. HEENT: Head examination is normocephalic, atraumatic. HEENT examination shows pink conjunctivae. Anicteric sclerae. No oropharyngeal lesion. No neck rigidity. CHEST: Symmetrical. LUNGS: Shows occasional rhonchi, upper lung osorio anteriorly, which clears up with coughing and deep breathing. CARDIOVASCULAR: S1, S2. Regular rhythm. No audible murmur, gallop or rub. ABDOMEN: Morbidly obese. No hepatosplenomegaly palpable. No costovertebral angle tenderness. No guarding. No rigidity. No rebound tenderness. GENITALIA: Female. RECTAL: Deferred. EXTREMITY: Shows chronic nonpitting swelling of the lower extremity. No calf tenderness, no Homans' sign. MUSCULOSKELETAL: Shows a body mass index of 54. NEUROLOGIC: The patient is alert, awake, oriented. Able to ambulate independently. CURRENT CONSULTATION: Podiatry and COLORING ROOM MAN. IMPRESSION AND PLAN: 1. Acute exacerbation of schizoaffective disorder or schizophrenia, bipolar type. 2. Morbid obesity. 3. Nicotine, alcohol and phencyclidine abuse and dependence. 4. state. 5. Morbid obesity with elevated body mass index of 54. 6. History of hypertension. 7. Normocytic anemia. 8. Hypokalemia. 9. Trace proteinuria. 10. Bipolar schizoaffective disorder. 11. Disorganized repetitive speech. 12. Prediabetes with hemoglobin A1c of 5.6. 13. Tachycardia. PLAN: At this time, the patient's current medications; 1. Benadryl 25 mg IM q. 6 hours p.r.n., Benadryl 50 mg at bedtime p.r.n. 2. Folic acid 1 mg daily. 3. Haldol 5 mg IM q. 6 hours p.r.n. 4. Haldol 10 mg, morning and at bedtime. 5. Lac-Hydrin lotion to the feet. 6. Lotrimin 1% cream to the feet b.i.d. 7. Nicotine patch 21 mg daily. 8. Multivitamin 1 tablet daily. 9. Xopenex changed to 0.63 mg nebulizer every 12 hours. At present, medically the patient is stable for discharge from psychiatry whenever the Psychiatry clears the patient. The patient needs close Psychiatry followup and meat selector followup regarding status. Dictated and electronically signed, not read. Colt Irizarry MD
[2017-12-21] MEDS: DiphenhydrAMINE 50 mg/ml Inj IM PRN (07:36)
[2017-12-21] MEDS: Levalbuterol 0.63 MG/3 ML Inhal Soln UD IH SCH ×2 (07:55→20:10)
[2017-12-21] MEDS: Clotrimazole 1% Cream(30 gm) TOP SCH ×2 (08:45→15:43)
[2017-12-21] MEDS: Ammonium Lactate 12% Cream (140 g) TOP SCH (08:45)
[2017-12-21] MEDS: Multivitamin Therapeutic Tab PO SCH (08:45)
--- NOTE | 2017-12-21 09:35 | PN ---
DATE: 12/18/2017 SUBJECTIVE: The patient is seen in the dayroom on Psychiatry floor. The patient is awake, responsive. The patient's speech is much less repetitive today and less pressured. The patient does not offer any complaint. The patient denies any headache, denies any fever, denies any chills. Denies any nausea, denies any vomiting, denies any chest pain, denies any hemoptysis, hematemesis, melena, denies any dysuria, denies any frequency, denies any bleeding. The patient is seen sitting up in the dayroom. Having breakfast. Overnight nurse's notes were reviewed. The patient was found to be alert, awake, responsive. As mentioned, the patient urinated in the nursing station yesterday. The patient had her heart rate checked. The patient was seen by high school social science teacher. The patient was seen and evaluated by the core mounter. PHYSICAL EXAMINATION: VITAL SIGNS: T-max 98; heart rate 99, 101; blood pressure 136/82, 142/91, 121/76; respiration 20; O2 sat is 100%. HEENT: Head examination normocephalic, atraumatic. HEENT examination shows pinkish conjunctivae. Anicteric sclerae. No oropharyngeal lesion. No neck rigidity. CHEST: Kyphosis. LUNGS: Shows no rales, crackles or wheezing. CARDIOVASCULAR: S1, S2. Regular rhythm. No audible murmur, gallop or rub. ABDOMEN: Morbidly obese. Positive bowel sounds. No hepatosplenomegaly appreciated. GENITALIA: Female. RECTAL: Deferred. EXTREMITY: Shows no pitting edema, no calf tenderness, no Manjula's signs. Chronic nonpitting swelling of the legs noted. MUSCULOSKELETAL: Shows a body mass index of 56. Cranial nerves II through XII limited. Gait examination is independent. The patient was seen by doughnut fryer and core mounter. Recommendation that the patient has uncomplicated 14-week of gestation without any obstetrical issue. The patient possibly wanting termination of . BOOT MAKER recommended if premonition of is wanted to schedule outpatient appointment and if care wanted, scheduled outpatient appointment. No indications for monitoring was indicated by the BOOT MAKER. The patient was seen by psychiatrist. IMPRESSION AND PLAN: 1. Schizoaffective disorder. 2. Schizoaffective disorder with pressured and repetitive speech. 3. Nicotine, alcohol and phencyclidine abuse. 4. Morbid obesity. 5. Hypertension. 6. Tachycardia. 7. Normocytic anemia. 8. Hypokalemia. 9. Probable prediabetes 10. Trace proteinuria. 11. Urine drug screen positive for phencyclidine. PLAN: At this time, the patient's current medications; 1. Benadryl 25 mg IM q. 6 hours p.r.n. 2. Benadryl 50 mg at bedtime p.r.n. 3. Folic acid 1 mg daily. 4. Haldol 5 mg IM q. 6 hours p.r.n. 5. Haldol 10 mg in a.m. and at bedtime. 6. Lac-Hydrin lotion to the feet daily. 7. Lotrimin 1% cream to the feet twice a day. 8. Nicotine patch 21 mg daily. 9. Multivitamin Thera daily. 10. Xopenex nebulizer 0.63 mg every 6 hours p.r.n. At present. The patient is medically stable. The patient has already been seen by Podiatry and BOOT MAKER. Their recommendations were all noted. The patient will be followed peripherally and if any acute intervention needed, interventions will be done. For some reason, the patient had a CPK and vitamin B12 done, which were normal today. Dictated and electronically signed, not read. Colt Irizarry MD
--- NOTE | 2017-12-21 14:56 | PCM.PYCHPN ---
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 Medical Problems: pt has obesity foot fungal infection pt is see note for more detailed information Diagnostic Results: 12/16/17 07:00 12/16/17 07:00 Lab Results 12/17/17 08:15: Vitamin B12 575 12/16/17 07:00: Hemoglobin A1c 5.6 12/16/17 07:00: WBC 7.3, RBC 4.31, Hgb 11.6 L, Hct 35.1 L, MCV 81.4, MCH 26.9, MCHC 33.0, RDW 14.2, Plt Count 287, MPV 9.4, Gran % 59.2, Lymph % (Auto) 29.7, [place] % (Auto) 6.7 H, Eos % (Auto) 4.1, Baso % (Auto) 0.3, Gran # 4.34, Lymph # ( Auto) 2.2, [place] # (Auto) 0.5, Eos # (Auto) 0.3, Baso # (Auto) 0.02 12/16/17 07:00: RPR Nonreactive 12/16/17 07:00: TSH 3rd Generation 1.12, Beta HCG, Quant 90237.00 H 12/16/17 07:00: Sodium 137, Potassium 4.0, Chloride 102, Carbon Dioxide 25, Anion Gap 14, BUN 6 L, Creatinine 0.7, Est GFR ( Amer) > 60, Est GFR (Non -Af Amer) > 60, Random Glucose 100, Fasting Glucose 100, Calcium 9.8, Magnesium 2.0, Total Bilirubin 0.4, Direct Bilirubin 0.4, AST 29, ALT 29, Alkaline Phosphatase 71, Total Protein 7.6, Albumin 3.8, Globulin 3.8, Albumin/Globulin Ratio 1.0 L, Triglycerides 54, Cholesterol 175, LDL Cholesterol Direct 54, HDL Cholesterol 97 H, Folate > 20.0 12/15/17 11:12: Alcohol, Quantitative < 10 12/14/17 16:10: Blood Type Confirm O POSITIVE 12/14/17 16:10: Urine Color Yellow, Urine Appearance Sl cloudy, Urine pH 6.0, Ur Specific Blunt 1.025, Urine Protein Trace H, Urine Glucose (UA) Negative, Urine Ketones 15 H, Urine Blood Negative, Urine Nitrate Negative, Urine Bilirubin Negative, Urine Urobilinogen 0.2, Ur Leukocyte Esterase Negative, Urine RBC Negative, Urine WBC 0 - 2, Ur Epithelial Cells Many, Urine HCG, Qual Positive 12/14/17 16:10: Urine Opiates Screen Negative, Urine Methadone Screen Negative, Ur Barbiturates Screen Negative, Ur Phencyclidine Scrn Positive H, Ur Amphetamines Screen Negative, U Benzodiazepines Scrn Negative, U Oth Cocaine Metabols Negative, U Cannabinoids Screen Negative 12/14/17 15:15: Blood Type O POSITIVE, Antibody Screen Negative, BBK History Checked No verified bt 12/14/17 14:25: Sodium 140, Potassium 3.5 L, Chloride 106, Carbon Dioxide 25, Anion Gap 13, BUN 9, Creatinine 0.7, Est GFR ( Amer) > 60, Est GFR (Non- Af Amer) > 60, Random Glucose 129 H, Calcium 9.5, Total Bilirubin 0.2, AST 26, ALT 24, Alkaline Phosphatase 102, Total Protein 7.2, Albumin 3.7, Globulin 3.5, Albumin/Globulin Ratio 1.1 12/14/17 14:25: WBC 7.6 D, RBC 4.21, Hgb 11.3 L D, Hct 33.9 L, MCV 80.5, MCH 26.8, MCHC 33.3, RDW 14.2, Plt Count 277, MPV 9.2 Vital Signs Temp Pulse Resp BP Pulse Ox 12/16/17 16:00 95 H 136/85 12/16/17 07:09 97.9 F 86 20 104/64 12/15/17 22:42 98.2 F 102 H 20 144/85 12/15/17 22:16 20 12/15/17 19:00 97.8 F 80 18 138/70 100 12/15/17 17:07 98.9 F 80 16 147/83 100 12/15/17 13:28 98.6 F 94 H 14 144/86 100 12/15/17 06:00 98.5 F 79 16 137/69 100 12/15/17 04:00 98.3 F 85 16 132/79 99 12/15/17 02:00 98.6 F 76 17 124/68 100 12/15/17 00:00 98.6 F 80 16 124/76 100 12/14/17 22:00 98.3 F 85 16 137/69 99 12/14/17 20:00 98.4 F 70 19 138/79 98 12/14/17 18:00 91 H 18 124/74 99 12/14/17 16:42 96 H 18 126/80 99 12/14/17 15:10 100 H 18 125/86 99 12/14/17 13:14 98.3 F 107 H 18 127/91 H 99 Laboratory Results - last 24 hr 12/18/17 10:20 Total Creatine Kinase 150 Temp Pulse Resp BP Pulse Ox 97.9 F 97 H 20 122/59 L 100 12/21/17 07:28 12/21/17 07:28 12/21/17 07:28 12/21/17 07:28 12/15/17 19:00 DSM 5 Symptoms Update: Shortly pt is 37yo AAF with long h/o mental illness, h/o multiple admissions in the psychiatric inpatient unit (mostly in [facility], recent admission to [facility] in August 2017), pt also has h/o substance use disorder, pt was admitted for evaluation and stabilization of disorganized, psychotic behavior, initially pt came for evaluation of abdominal pain, in ED pt presented to be disorganized, psychotic, this conventional mortgage underwriter suggested [facility] screening, during awaiting for [facility] screening pt required to be medicated with Haldol 2mg PO, then pt was evaluated and pt was found to be not committable, pt was offered voluntary admission to [facility], pt agreed to sign in, then over night pt decided to leave the hospital and signed 48hr notice. 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 EXUBRUALIENTlY brilliant, this is the way I feel". pt wanted to have an at the time of admission, but at present moment pt wants to keep the , from this conventional mortgage underwriter perspective pt needs to be more stabilized from the mental stand point and make right decision for herself. 12/18/17:family meeting with pt's mother Shante Jiang [phone] as per Mother, she is pt's POA pt's mother was advised to bring official document to confirm this statement over the weekend mother did not bring any documents. Pt's mother said that when pt was better (prior to this admission and prior pt' s relapse on drugs) she wanted to terminate her and even have a tubal ligation. as per staff pt is compliant with meds but last night pt laid in front of the nursing station, was exposing herself, needed to be medicated. OB and [facility]k Snapper team evaluated pt, consult, input appreciated. see notes. Podiatry consult appreciated. medical consult appreciated. pt tolerates meds well, no side effects observed or reported, AIMS 0, no EPS. pt was educated about risk/benefits and alternatives of meds. Impression: Schizoaffective disorder PCP abuse Medication Change: No Medical Record Reviewed: Yes Consults ordered or reviewed: medical and podiatry consults appreciated OB consult appreciated Mental Status Examination - Cognitive Function Orientation: Person Memory: Impaired Attention: Poor (somewhat better) Concentration: Poor (some improvement) Association: Loose Fund of Knowledge: Poor - Mood Mood: Depressed ("I am not depressed, I am very proud of myself") - Affect Affect: Broad, Other (labile) - Speech Speech: Pressured - Formal Thought Process Formal Thought Process: Hallucinations (Appears to be responding to internal stimuli), Delusions (delusions of grandour), Loosening of associations, Circumstantial, Perservation - Suicidal Ideation Suicidal Ideation: No - Homicidal Ideation Homicidal Ideation: No Goal/Treatment Plan - Goal/Treatment Plan Need for Continued Stay: Remain at risks for inpatient hospitalization, Severe depression anxiety, Discharge may exacerbated symptoms, Failed transitioning, Severe functional impairment Progress Toward Problem(s) and Goals/Treatment Plan: Milieu/structure/supportive therapy meds confirmed OB&Silk Snapper called, input appreciated Podiatry consult called, consult appreciated Haldol 5mg po tid was increased to 10mg amhs for psychosis (pt was d/c from [facility] on haldol 5mg po tid) PRN meds benadryl as needed for insomnia MVI () Folic acid SW evaluation pt submitted 48hr noticeX 2, but rescinded Pt was screened by [facility] in ED, was not found to be committable Family involvement will monitor closely family meeting appreciated, awaiting for the legal documents indicating pt's mother is POA Pt was educated about risk/benefits and alternatives of medications, coping strategies (safety plan, suicide prevention), relapse prevention, importance of follow up with psychiatrist and therapist, stay away from drugs/alcohol/smoking Estimated Date of D/C: 12/23/17
--- NOTE | 2017-12-22 04:44 | PN ---
DATE: 12/21/2017 LOCATION: The patient was seen in room 571, bed 2. SUBJECTIVE: The patient is out of bed to chair, ambulating. Today, the patient's speech appears to be pressured again. The patient again was noticed to have a repetitive speech pattern. The patient was found to be alert, awake, responsive. Overnight nurse's notes were reviewed. OBJECTIVE: VITAL SIGNS: T-max 97.9, heart rate 95, 97, blood pressure 122/59, respirations 20, O2 sat is 100%. HEENT: Head examination; normocephalic, atraumatic. HEENT examination shows pink conjunctivae, anicteric sclerae. No oropharyngeal lesion. No neck rigidity. CHEST: Kyphosis. LUNGS: Shows no rales, crackles or wheezing. CARDIOVASCULAR: S1, S2, regular rhythm. ABDOMEN: Obese. Positive bowel sounds. No hepatosplenomegaly noted. No guarding, no rigidity, no rebound tenderness. GENITALIA: Female. RECTAL: Examination is deferred. EXTREMITIES: Show chronic nonpitting swelling of the lower extremity noted. No calf tenderness, no Homans' sign. NEUROLOGIC: The patient is alert, awake, responsive, is able to move upper and lower extremity without assistance. Gait is independent. Vascular examination could not be appreciated. Cranial nerves II-XII limited. MUSCULOSKELETAL: Examination shows a body mass index of 54. DIAGNOSTICS: None. CONSULTATIONS: The patient was seen by Psychiatry. IMPRESSION AND PLAN 1. Acute exacerbation of schizoaffective disorder with pressured and repetitive speech pattern. 2. Nicotine, alcohol and PCP abuse and dependence. 3. Transient tachycardia. 4. Hypertension. 5. Normocytic anemia. 6. Hypokalemia. 7. 14 weeks' gestational and state. 8. Morbid obesity with elevated body mass index of 54. 9. Proteinuria. 10. Ketonuria. 11. Urine drug screen positive for PCP. 12. O+ blood type. 13. History of nicotine, alcohol and polysubstance abuse, and PCP abuse and dependence. PLAN: The patient is presently on Benadryl 50 mg at bedtime p.r.n., folic acid 1 mg daily, Haldol 5 mg IM q.6h. p.r.n., Haldol 10 mg in the morning and at bedtime, Lac-Hydrin lotion to both feet, Lotrimin 1% cream twice a day to feet, nicotine patch 21 mg daily, multivitamin 1 tablet daily, Xopenex 0.63 mg nebulizer every 12 hours round the clock. The patient is seen by social science manager for discharge planning. The patient's case was referred to Ocean Export Coordinator for discharge planning. Dictated and electronically signed, not read. Colt Irizarry MD
[2017-12-22] MEDS: Levalbuterol 0.63 MG/3 ML Inhal Soln UD IH SCH (08:18)
[2017-12-22] MEDS: Clotrimazole 1% Cream(30 gm) TOP SCH ×2 (08:53→16:26)
[2017-12-22] MEDS: Multivitamin Therapeutic Tab PO SCH (08:53)
[2017-12-22] MEDS: Ammonium Lactate 12% Cream (140 g) TOP SCH (08:54)
--- NOTE | 2017-12-22 16:25 | PCM.PYCHPN ---
Psychiatric Progress Note - Psychiatric Progress Note Patient seen today, length of contact: 30min Patient Chief Complaint: " , I am better, I want to have a big mac, I want to go to [place]... " Problems Identified/Issues Discussed: Suicide/ homicide prevention, past psychiatric h/o, current psychiatric symptoms , medical problems, risk/benefits and alternatives of medications, medications compliance, coping strategies, substance abuse h/o, relapse prevention, importance of follow up with psychiatrist and therapist, discharge plan. pt wants to point her mother to be her POA, pt was educated who POA is, pt said "I want my mother to help me with medical decisions, but I will take care of my finances". Medical Problems: pt has obesity foot fungal infection pt is see note for more detailed information Diagnostic Results: 12/16/17 07:00 12/16/17 07:00 Lab Results 12/17/17 08:15: Vitamin B12 575 12/16/17 07:00: Hemoglobin A1c 5.6 12/16/17 07:00: WBC 7.3, RBC 4.31, Hgb 11.6 L, Hct 35.1 L, MCV 81.4, MCH 26.9, MCHC 33.0, RDW 14.2, Plt Count 287, MPV 9.4, Gran % 59.2, Lymph % (Auto) 29.7, [place] % (Auto) 6.7 H, Eos % (Auto) 4.1, Baso % (Auto) 0.3, Gran # 4.34, Lymph # ( Auto) 2.2, [place] # (Auto) 0.5, Eos # (Auto) 0.3, Baso # (Auto) 0.02 12/16/17 07:00: RPR Nonreactive 12/16/17 07:00: TSH 3rd Generation 1.12, Beta HCG, Quant 30447.00 H 12/16/17 07:00: Sodium 137, Potassium 4.0, Chloride 102, Carbon Dioxide 25, Anion Gap 14, BUN 6 L, Creatinine 0.7, Est GFR ( Amer) > 60, Est GFR (Non -Af Amer) > 60, Random Glucose 100, Fasting Glucose 100, Calcium 9.8, Magnesium 2.0, Total Bilirubin 0.4, Direct Bilirubin 0.4, AST 29, ALT 29, Alkaline Phosphatase 71, Total Protein 7.6, Albumin 3.8, Globulin 3.8, Albumin/Globulin Ratio 1.0 L, Triglycerides 54, Cholesterol 175, LDL Cholesterol Direct 54, HDL Cholesterol 97 H, Folate > 20.0 12/15/17 11:12: Alcohol, Quantitative < 10 12/14/17 16:10: Blood Type Confirm O POSITIVE 12/14/17 16:10: Urine Color Yellow, Urine Appearance Sl cloudy, Urine pH 6.0, Ur Specific [place] 1.025, Urine Protein Trace H, Urine Glucose (UA) Negative, Urine Ketones 15 H, Urine Blood Negative, Urine Nitrate Negative, Urine Bilirubin Negative, Urine Urobilinogen 0.2, Ur Leukocyte Esterase Negative, Urine RBC Negative, Urine WBC 0 - 2, Ur Epithelial Cells Many, Urine HCG, Qual Positive 12/14/17 16:10: Urine Opiates Screen Negative, Urine Methadone Screen Negative, Ur Barbiturates Screen Negative, Ur Phencyclidine Scrn Positive H, Ur Amphetamines Screen Negative, U Benzodiazepines Scrn Negative, U Oth Cocaine Metabols Negative, U Cannabinoids Screen Negative 12/14/17 15:15: Blood Type O POSITIVE, Antibody Screen Negative, BBK History Checked No verified bt 12/14/17 14:25: Sodium 140, Potassium 3.5 L, Chloride 106, Carbon Dioxide 25, Anion Gap 13, BUN 9, Creatinine 0.7, Est GFR ( Amer) > 60, Est GFR (Non- Af Amer) > 60, Random Glucose 129 H, Calcium 9.5, Total Bilirubin 0.2, AST 26, ALT 24, Alkaline Phosphatase 102, Total Protein 7.2, Albumin 3.7, Globulin 3.5, Albumin/Globulin Ratio 1.1 12/14/17 14:25: WBC 7.6 D, RBC 4.21, Hgb 11.3 L D, Hct 33.9 L, MCV 80.5, MCH 26.8, MCHC 33.3, RDW 14.2, Plt Count 277, MPV 9.2 Vital Signs Temp Pulse Resp BP Pulse Ox 12/16/17 16:00 95 H 136/85 12/16/17 07:09 97.9 F 86 20 104/64 12/15/17 22:42 98.2 F 102 H 20 144/85 12/15/17 22:16 20 12/15/17 19:00 97.8 F 80 18 138/70 100 12/15/17 17:07 98.9 F 80 16 147/83 100 12/15/17 13:28 98.6 F 94 H 14 144/86 100 12/15/17 06:00 98.5 F 79 16 137/69 100 12/15/17 04:00 98.3 F 85 16 132/79 99 12/15/17 02:00 98.6 F 76 17 124/68 100 12/15/17 00:00 98.6 F 80 16 124/76 100 12/14/17 22:00 98.3 F 85 16 137/69 99 12/14/17 20:00 98.4 F 70 19 138/79 98 12/14/17 18:00 91 H 18 124/74 99 12/14/17 16:42 96 H 18 126/80 99 12/14/17 15:10 100 H 18 125/86 99 12/14/17 13:14 98.3 F 107 H 18 127/91 H 99 Laboratory Results - last 24 hr 12/18/17 10:20 Total Creatine Kinase 150 Temp Pulse Resp BP Pulse Ox 97.9 F 97 H 20 122/59 L 100 12/21/17 07:28 12/21/17 07:28 12/21/17 07:28 12/21/17 07:28 12/15/17 19:00 Temp Pulse Resp BP Pulse Ox 98.2 F 100 H 16 119/77 100 12/22/17 07:09 12/22/17 07:09 12/22/17 07:09 12/22/17 07:09 12/15/17 19:00 DSM 5 Symptoms Update: Shortly pt is 37yo AAF with long h/o mental illness, h/o multiple admissions in the psychiatric inpatient unit (mostly in [facility], recent admission to [facility] in August 2017), pt also has h/o substance use disorder, pt was admitted for evaluation and stabilization of disorganized, psychotic behavior, initially pt came for evaluation of abdominal pain, in ED pt presented to be disorganized, psychotic, this marine underwriter suggested [facility] screening, during awaiting for [facility] screening pt required to be medicated with Haldol 2mg PO, then pt was evaluated and pt was found to be not committable, pt was offered voluntary admission to [facility], pt agreed to sign in, then over night pt decided to leave the hospital and signed 48hr notice, then rescinded it, on the other day pt signed another 48hr notice, then rescinded it again. Currently pt is under voluntary status. pt was seen and examined today at the treatment team meeting room. pt presented somewhat better, pt said that she wants to have a "big Mac from [employer]", pt said that she feels "very good", pt said that she does not feel depressed, denied thoughts of harming self or others. as per staff pt is pleasant, at times childlike demeanor, pt does not have agitation or aggression. pt wanted to have an at the time of admission, but at present moment pt wants to keep the , from this marine underwriter perspective pt needs to be more stabilized from the mental stand point and make right decision for herself. yesterday pt asked her mother to be her POA, today this marine underwriter checked if pt signed any official documents, pt checked that she does not want anyone to be her POA, this marine underwriter asked pt about this decision, pt said that she wanted her mother to be a POA "for medical decisions only but not for finances, she is my mother, I trust her". This marine underwriter contacted , she confirmed pt pointed her mother to be her POA, but it was technical mistake. Pt pointed her mother to be her POA for medical issues today, official document filed in chart. pt has capacity to sign POA documents. this marine underwriter asked about substance abuse prior to come to the hospital because PCP was positive, pt said that she did not know that she was when she used it, but as per record pt was discharged from [facility] in November, pt signed consent for medical record request, will f/u on it. 12/18/17:family meeting with pt's mother Shante Jiang [phone] as per Mother, she is pt's POA pt's mother was advised to bring official document to confirm this statement over the weekend mother did not bring any documents. Pt's mother said that when pt was better (prior to this admission and prior pt' s relapse on drugs) she wanted to terminate her and even have a tubal ligation. as per staff pt is doing better, but labile, usually pt is pleasant, but at times could be demanding. OB and [employer] team evaluated pt, consult, input appreciated. see notes. Podiatry consult appreciated. medical consult appreciated. pt was educated about risk/benefits and alternatives of meds. pt tolerates meds well, no side effects observed or reported, AIMS 0, no EPS. Impression: Schizoaffective disorder PCP abuse Medication Change: No Medical Record Reviewed: Yes Consults ordered or reviewed: medical and podiatry consults appreciated OB consult appreciated Mental Status Examination - Cognitive Function Orientation: Person Memory: Impaired Attention: Poor (somewhat better) Concentration: Poor (some improvement) Association: Loose Fund of Knowledge: Poor - Mood Mood: Depressed ("I am not depressed, I am very proud of myself") - Affect Affect: Broad, Other (labile) - Speech Speech: Appropriate (overproductive) - Formal Thought Process Formal Thought Process: Hallucinations (Appears to be responding to internal stimuli), Delusions (delusions of grandour), Loosening of associations, Circumstantial, Perservation - Suicidal Ideation Suicidal Ideation: No - Homicidal Ideation Homicidal Ideation: No Goal/Treatment Plan - Goal/Treatment Plan Need for Continued Stay: Remain at risks for inpatient hospitalization, Severe depression anxiety, Discharge may exacerbated symptoms, Failed transitioning, Severe functional impairment Progress Toward Problem(s) and Goals/Treatment Plan: Milieu/structure/supportive therapy meds confirmed OB&[employer] called, input appreciated Podiatry consult called, consult appreciated Haldol 5mg po tid was increased to 10mg amhs for psychosis (pt was d/c from [facility] on haldol 5mg po tid) PRN meds benadryl as needed for insomnia MVI () Folic acid SW evaluation pt submitted 48hr noticeX 2, but rescinded Pt was screened by [facility] in ED, was not found to be committable Family involvement will monitor closely family meeting appreciated, awaiting for the legal documents indicating pt's mother is POA Pt was educated about risk/benefits and alternatives of medications, coping strategies (safety plan, suicide prevention), relapse prevention, importance of follow up with psychiatrist and therapist, stay away from drugs/alcohol/smoking medical record from [facility] requested family meeting requested to discuss d/c plan Estimated Date of D/C: 12/25/17
[2017-12-23] MEDS: Multivitamin Therapeutic Tab PO SCH (09:11)
[2017-12-23] MEDS: Clotrimazole 1% Cream(30 gm) TOP SCH ×2 (09:12→16:09)
[2017-12-23] MEDS: Ammonium Lactate 12% Cream (140 g) TOP SCH (09:12)
[2017-12-23] MEDS: Levalbuterol 0.63 MG/3 ML Inhal Soln UD IH SCH ×2 (11:12→20:44)
--- NOTE | 2017-12-23 16:04 | PCM.PYCHPN ---
Psychiatric Progress Note - Psychiatric Progress Note Patient seen today, length of contact: 30min Patient Chief Complaint: " , I am better" Problems Identified/Issues Discussed: Suicide/ homicide prevention, past psychiatric h/o, current psychiatric symptoms , medical problems, risk/benefits and alternatives of medications, medications compliance, coping strategies, substance abuse h/o, relapse prevention, importance of follow up with psychiatrist and therapist, discharge plan. pt wants to point her mother to be her POA, pt was educated who POA is, pt said "I want my mother to help me with medical decisions, but I will take care of my finances". Medical Problems: pt has obesity foot fungal infection pt is see note for more detailed information Diagnostic Results: 12/16/17 07:00 12/16/17 07:00 Lab Results 12/17/17 08:15: Vitamin B12 575 12/16/17 07:00: Hemoglobin A1c 5.6 12/16/17 07:00: WBC 7.3, RBC 4.31, Hgb 11.6 L, Hct 35.1 L, MCV 81.4, MCH 26.9, MCHC 33.0, RDW 14.2, Plt Count 287, MPV 9.4, Gran % 59.2, Lymph % (Auto) 29.7, [place] % (Auto) 6.7 H, Eos % (Auto) 4.1, Baso % (Auto) 0.3, Gran # 4.34, Lymph # ( Auto) 2.2, [place] # (Auto) 0.5, Eos # (Auto) 0.3, Baso # (Auto) 0.02 12/16/17 07:00: RPR Nonreactive 12/16/17 07:00: TSH 3rd Generation 1.12, Beta HCG, Quant [id number] H 12/16/17 07:00: Sodium 137, Potassium 4.0, Chloride 102, Carbon Dioxide 25, Anion Gap 14, BUN 6 L, Creatinine 0.7, Est GFR ( Amer) > 60, Est GFR (Non -Af Amer) > 60, Random Glucose 100, Fasting Glucose 100, Calcium 9.8, Magnesium 2.0, Total Bilirubin 0.4, Direct Bilirubin 0.4, AST 29, ALT 29, Alkaline Phosphatase 71, Total Protein 7.6, Albumin 3.8, Globulin 3.8, Albumin/Globulin Ratio 1.0 L, Triglycerides 54, Cholesterol 175, LDL Cholesterol Direct 54, HDL Cholesterol 97 H, Folate > 20.0 12/15/17 11:12: Alcohol, Quantitative < 10 12/14/17 16:10: Blood Type Confirm O POSITIVE 12/14/17 16:10: Urine Color Yellow, Urine Appearance Sl cloudy, Urine pH 6.0, Ur Specific [place] 1.025, Urine Protein Trace H, Urine Glucose (UA) Negative, Urine Ketones 15 H, Urine Blood Negative, Urine Nitrate Negative, Urine Bilirubin Negative, Urine Urobilinogen 0.2, Ur Leukocyte Esterase Negative, Urine RBC Negative, Urine WBC 0 - 2, Ur Epithelial Cells Many, Urine HCG, Qual Positive 12/14/17 16:10: Urine Opiates Screen Negative, Urine Methadone Screen Negative, Ur Barbiturates Screen Negative, Ur Phencyclidine Scrn Positive H, Ur Amphetamines Screen Negative, U Benzodiazepines Scrn Negative, U Oth Cocaine Metabols Negative, U Cannabinoids Screen Negative 12/14/17 15:15: Blood Type O POSITIVE, Antibody Screen Negative, BBK History Checked No verified bt 12/14/17 14:25: Sodium 140, Potassium 3.5 L, Chloride 106, Carbon Dioxide 25, Anion Gap 13, BUN 9, Creatinine 0.7, Est GFR ( Amer) > 60, Est GFR (Non- Af Amer) > 60, Random Glucose 129 H, Calcium 9.5, Total Bilirubin 0.2, AST 26, ALT 24, Alkaline Phosphatase 102, Total Protein 7.2, Albumin 3.7, Globulin 3.5, Albumin/Globulin Ratio 1.1 12/14/17 14:25: WBC 7.6 D, RBC 4.21, Hgb 11.3 L D, Hct 33.9 L, MCV 80.5, MCH 26.8, MCHC 33.3, RDW 14.2, Plt Count 277, MPV 9.2 Vital Signs Temp Pulse Resp BP Pulse Ox 12/16/17 16:00 95 H 136/85 12/16/17 07:09 97.9 F 86 20 104/64 12/15/17 22:42 98.2 F 102 H 20 144/85 12/15/17 22:16 20 12/15/17 19:00 97.8 F 80 18 138/70 100 12/15/17 17:07 98.9 F 80 16 147/83 100 12/15/17 13:28 98.6 F 94 H 14 144/86 100 12/15/17 06:00 98.5 F 79 16 137/69 100 12/15/17 04:00 98.3 F 85 16 132/79 99 12/15/17 02:00 98.6 F 76 17 124/68 100 12/15/17 00:00 98.6 F 80 16 124/76 100 12/14/17 22:00 98.3 F 85 16 137/69 99 12/14/17 20:00 98.4 F 70 19 138/79 98 12/14/17 18:00 91 H 18 124/74 99 12/14/17 16:42 96 H 18 126/80 99 12/14/17 15:10 100 H 18 125/86 99 12/14/17 13:14 98.3 F 107 H 18 127/91 H 99 Laboratory Results - last 24 hr 12/18/17 10:20 Total Creatine Kinase 150 Temp Pulse Resp BP Pulse Ox 97.9 F 97 H 20 122/59 L 100 12/21/17 07:28 12/21/17 07:28 12/21/17 07:28 12/21/17 07:28 12/15/17 19:00 Temp Pulse Resp BP Pulse Ox 98.2 F 100 H 16 119/77 100 12/22/17 07:09 12/22/17 07:09 12/22/17 07:09 12/22/17 07:09 12/15/17 19:00 Vital Signs - 24 hr 12/23/17 07:24 Temperature 98.6 F Pulse Rate 97 H Respiratory 20 Rate Blood Pressure 140/81 DSM 5 Symptoms Update: Shortly pt is 37yo AAF with long h/o mental illness, h/o multiple admissions in the psychiatric inpatient unit (mostly in [facility], recent admission to [facility] in August 2017), pt also has h/o substance use disorder, pt was admitted for evaluation and stabilization of disorganized, psychotic behavior, initially pt came for evaluation of abdominal pain, in ED pt presented to be disorganized, psychotic, this scenario writer suggested [facility] screening, during awaiting for [facility] screening pt required to be medicated with Haldol 2mg PO, then pt was evaluated and pt was found to be not committable, pt was offered voluntary admission to [facility], pt agreed to sign in, then over night pt decided to leave the hospital and signed 48hr notice, then rescinded it, on the other day pt signed another 48hr notice, then rescinded it again. Currently pt is under voluntary status. pt was seen and examined today at the treatment team meeting room, seems in good mood, pt said that she feels "very good", denied being depressed, at the same time pt had labile affect, was crying then was laughing. pt was advised that DYFS was called in ED, pt seems to be frightened, then said "If DYFS involved I will have an ", this scenario writer advised to have a family meeting with pt's POA mother, family meeting will take place tomorrow. this scenario writer asked about substance abuse prior to come to the hospital because PCP was positive, pt said that she did not know that she was when she used it, but as per record pt was discharged from [facility] in November, pt signed consent for medical record request, it was confirmed pt was back then, pt was discharged to IOP program. PCP was positive while she came to [facility] . pt was d/c on haldol 5mg po tid. 12/18/17:family meeting with pt's mother Shante Jiang [phone] as per Mother, she is pt's POA pt's mother was advised to bring official document to confirm this statement over the weekend mother did not bring any documents. Pt's mother said that when pt was better (prior to this admission and prior pt' s relapse on drugs) she wanted to terminate her and even have a tubal ligation. as per staff pt is doing better, but labile, usually pt is pleasant, but at times could be demanding. OB and Payroll Auditor team evaluated pt, consult, input appreciated. see notes. Podiatry consult appreciated. medical consult appreciated. pt was educated about risk/benefits and alternatives of meds. pt tolerates meds well, no side effects observed or reported, AIMS 0, no EPS. Impression: Schizoaffective disorder PCP abuse Medication Change: No Medical Record Reviewed: Yes Mental Status Examination - Cognitive Function Orientation: Person Memory: Impaired Attention: Poor (somewhat better) Concentration: Poor (some improvement) Association: Loose Fund of Knowledge: Poor - Mood Mood: Depressed ("I am not depressed, I am very proud of myself") - Affect Affect: Broad, Other (labile) - Speech Speech: Appropriate (overproductive) - Formal Thought Process Formal Thought Process: Hallucinations (Appears to be responding to internal stimuli), Delusions (delusions of grandour), Loosening of associations, Circumstantial, Perservation - Suicidal Ideation Suicidal Ideation: No - Homicidal Ideation Homicidal Ideation: No Goal/Treatment Plan - Goal/Treatment Plan Need for Continued Stay: Remain at risks for inpatient hospitalization, Severe depression anxiety, Discharge may exacerbated symptoms, Failed transitioning, Severe functional impairment Progress Toward Problem(s) and Goals/Treatment Plan: Milieu/structure/supportive therapy meds confirmed OB&Payroll Auditor called, input appreciated Podiatry consult called, consult appreciated Haldol 10mg amhs for psychosis (pt was d/c from [facility] on haldol 5mg po tid) PRN meds benadryl as needed for insomnia MVI () Folic acid SW evaluation pt submitted 48hr noticeX 2, but rescinded Pt was screened by [facility] in ED, was not found to be committable Family involvement will monitor closely family meeting appreciated, awaiting for the legal documents indicating pt's mother is POA Pt was educated about risk/benefits and alternatives of medications, coping strategies (safety plan, suicide prevention), relapse prevention, importance of follow up with psychiatrist and therapist, stay away from drugs/alcohol/smoking medical record from [facility] requested, appreciated, filed in chart family meeting requested to discuss d/c plan family meeting tomorrow Estimated Date of D/C: 12/25/17
[2017-12-24] MEDS: Levalbuterol 0.63 MG/3 ML Inhal Soln UD IH SCH ×2 (08:33→20:52)
--- NOTE | 2017-12-24 08:47 | PN ---
DATE: 12/23/2017 SUBJECTIVE: Patient is seen ambulating in the hallway on 5 B. Patient is alert, awake, responsive. Patient's speech appears to be pressured, not repetitive. Overnight nurse's notes were reviewed. Patient's heart rate was monitored yesterday, which was 149. Patient was seen ambulating on the floor. Patient's case was referred to Deputy Director Of Finance for discharge planning. PHYSICAL EXAMINATION: VITAL SIGNS: T-max 98.6; heart rate 97, 93; blood pressure 121/61, 140/81, 116/66; respiration 16 to 20; O2 sat 100%. HEENT: Head examination normocephalic, atraumatic. HEENT examination shows pink conjunctivae. Anicteric sclerae. No oropharyngeal lesion. No neck rigidity. CHEST: Kyphosis. LUNGS: Shows no rales, crackles or wheezing. CARDIOVASCULAR: S1, S2, regular rhythm. ABDOMEN: Obese, protuberant. Positive bowel sound. No hepatosplenomegaly noted. No guarding. No rigidity. No rebound tenderness. GENITALIA: Female. RECTAL: Examination deferred. EXTREMITIES: Shows chronic nonpitting, swelling of the lower extremity. MUSCULOSKELETAL: Shows a body mass index of 54. NEUROLOGIC: Patient is alert, awake, responsive, is able to follow commands, ambulate independently. DIAGNOSTICS: None. Patient was seen by psychiatrists. Their recommendations were noted. IMPRESSION AND PLAN: 1. Hypertension. 2. Tachycardia. 3. Super morbid obesity with elevated body mass index of 54. 4. Nicotine, alcohol and substance abuse disorder. 5. Psychotic behavior and psychosis. 6. Schizoaffective disorder. Plan at this time, patient's case is referred to Deputy Director Of Finance for discharge planning and family meeting. Patient is for tentatively discharged on 12/25/2017. CURRENT MEDICATIONS: 1. Benadryl 50 mg at bedtime p.r.n. 2. Folic acid 1 mg daily. 3. Haldol 5 mg IM q. 6 hours p.r.n. 4. Haldol 10 mg a.m. and at bedtime. 5. Lac-Hydrin lotion to both feet. 6. Lotrimin cream to both feet twice a day. 7. Nicotine patch 21 mg daily. 8. Multivitamin 1 tablet daily. 9. Xopenex nebulizer 0.63 mg q.12 hours. At this time, patient upon discharge was advised to follow up in the office for further continuation of the medical care. Dictated and electronically signed, not read. Colt Irizarry MD
[2017-12-24] MEDS: Multivitamin Therapeutic Tab PO SCH (09:22)
[2017-12-24] MEDS: Clotrimazole 1% Cream(30 gm) TOP SCH ×2 (09:23→17:19)
[2017-12-24] MEDS: Ammonium Lactate 12% Cream (140 g) TOP SCH (09:23)
--- NOTE | 2017-12-24 09:50 | PCM.BM ---
<Nkechi Read Y - Last Filed: 12/24/17 09:50> Treatment Plan Problems - Problems identified on initial assessmt BIPOLAR DISORDER Date Initiated: 12/15/17 Time Initiated: 22:00 Assessment reference: NA Status: Active SUBSTANCE ABUSE Date Initiated: 12/15/17 Assessment reference: NA Status: Active ANXIETY Date Initiated: 12/15/17 Assessment reference: NA Status: Active Altered Thought Process Date Initiated: 12/16/17 Time Initiated: 10:07 Assessment reference: NA Status: Active Priority: 1 Delusions Date Initiated: 12/16/17 Time Initiated: 10: Assessment reference: NA Status: Active Priority: 2 Agitated Behavior Date Initiated: 12/16/17 Time Initiated: 10:08 Assessment reference: NA Status: Active Priority: 3 Treatment assets and liabiliti Patient Assests: adapts well, cooperative, educated, self-reliant, ADL independent, physically healthy, negotiates basic needs, cognitively intact, good interpersonal skills Patient Liabilities: live alone, financial problems, dietary restrictions, substance abuse, medical problems - Milieu Protocol Maintain good personal hygiene: every other day Encourage regular showers, every shift Remind patient to perform daily oral care, every shift Assist patient to perform ADL's Maintain personal safety: every shift Educate patient to report safety concerns to staff, every shift Monitor environment for contraband/sharps Medication safety: Monitor for expected outcome, potential side effects: every shift, Assess barriers to learning: every shift, Assess readiness for medication education: every shift Milieu Narrative: Milieu/structure/supportive therapy meds confirmed OB&Nurses Assistant called, input appreciated Podiatry consult called, consult appreciated Haldol 10mg amhs for psychosis (pt was d/c from [facility] on haldol 5mg po tid) PRN meds benadryl as needed for insomnia MVI () Folic acid SW evaluation pt submitted 48hr noticeX 2, but rescinded Pt was screened by [facility] in ED, was not found to be committable Family involvement will monitor closely family meeting appreciated, awaiting for the legal documents indicating pt's mother is POA Pt was educated about risk/benefits and alternatives of medications, coping strategies (safety plan, suicide prevention), relapse prevention, importance of follow up with psychiatrist and therapist, stay away from drugs/alcohol/smoking medical record from [facility] requested, appreciated, filed in chart family meeting requested to discuss d/c plan family meeting tomorrow Family Contact Family contact: Patient agrees to contact Family contact name: Shante Rick(mother) [phone] Family contacted how many times per week?: 2 Discharge/Continuing Care - Education Needs Education Needs: Patient Medication, Patient Diagnosis/Disease Process, Patient Coping Skills, Patient Placement options, Patient Community resources, Patient Activities of Daily Living, Patient Nutrition, Patient Uses of Medical Equipment , Patient Personal Hygiene/Grooming, Patient Aftercare Safety Plan - Discharge Discharge Criteria: Tolerates medication w/o severe side effects, Free of paranoid thoughts, Free of agitation, Normal sleep pattern, Ability to care for self - Treatment Team Participation Patient/Family/SO Statement: Milieu/structure/supportive therapy meds confirmed OB&Nurses Assistant called, input appreciated Podiatry consult called, consult appreciated Haldol 10mg amhs for psychosis (pt was d/c from [facility] on haldol 5mg po tid) PRN meds benadryl as needed for insomnia MVI () Folic acid SW evaluation pt submitted 48hr noticeX 2, but rescinded Pt was screened by [facility] in ED, was not found to be committable Family involvement will monitor closely family meeting appreciated, awaiting for the legal documents indicating pt's mother is POA Pt was educated about risk/benefits and alternatives of medications, coping strategies (safety plan, suicide prevention), relapse prevention, importance of follow up with psychiatrist and therapist, stay away from drugs/alcohol/smoking medical record from [facility] requested, appreciated, filed in chart family meeting requested to discuss d/c plan family meeting tomorrow Treatment Plan Review - Problem BIPOLAR DISORDER Time Initiated: 22:00 Altered Thought Process Time Initiated: 10:07 Delusions Time Initiated: 10:07 Agitated Behavior Time Initiated: 10:08 <Ramonita Cheema - Last Filed: 12/24/17 16:03> - Diagnosis (1) Schizoaffective disorder Status: Acute Interventions: 12/24/17 16:02 psychosis is improving slowly pt is doing better, behavior is under control (2) Phencyclidine-induced psychosis Status: Acute Interventions: 12/24/17 16:03 pt has poor insight into her PCP abuse h/o pt still convinced that she did not use any drugs prior to this hospitalization.
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
--- NOTE | 2017-12-25 04:04 | PN ---
DATE: 12/24/2017 SUBJECTIVE: Patient is seen in room 517, bed 1. Patient's overnight nurse's notes were reviewed. Patient is sitting up in the bed. Patient appears to be alert, awake, responsive; does not appear to be suicidal or homicidal. Denies any auditory or vision hallucination. PHYSICAL EXAMINATION: VITAL SIGNS: T-max 98.2, heart rate 96 to 92. Blood pressure 137/70, 116/66. Respirations 20. HEAD: Normocephalic, atraumatic. HEENT: Shows pinkish conjunctivae. Anicteric sclerae. No oropharyngeal lesion. No neck rigidity. CHEST: Kyphosis. LUNGS: Shows no rales, crackles, or wheezing. CARDIOVASCULAR: S1, S2, regular rhythm. ABDOMEN: No audible murmur, gallop, or rub. LUNGS: Shows no rales, crackles, or wheezing. CARDIOVASCULAR: S1, S2, regular rhythm. ABDOMEN: No hepatosplenomegaly palpable. No guarding, no rigidity, no rebound tenderness. GENITALIA: Female. RECTAL: Deferred. EXTREMITY: Shows chronic nonpitting swelling of the lower extremity. MUSCULOSKELETAL: Shows a body mass index of 54.1. Cranial nerves II through XII limited. GAIT EXAMINATION: Independent. DIAGNOSTICS STUDIES: None. IMPRESSION AND PLAN: 1. Acute exacerbation of schizoaffective disorder. 2. Anxiety disorder. 3. Super morbid obesity with elevated body mass index of 54. 4. Nicotine, alcohol, and polysubstance abuse and dependence and phencyclidine abuse and dependence. 5. Fourteen-week gestational state. 6. Disorganized repetitive pressured speech. 7. Questionable foot fungal infection versus tinea pedis. 8. Phencyclidine-induced psychosis. 9. History of bipolar disorder. 10. History of substance abuse. 11. Delusional disorder. 12. Questionable behavioral disorder. CURRENT MEDICATIONS: 1. Benadryl 50 mg at bedtime p.r.n. 2. Folic acid 1 mg daily. 3. Haldol 5 mg IM q.6 hours p.r.n. 4. Haldol 10 mg a.m. and bedtime. 5. Haldol 5 mg at 4 p.m. 6. Lac-Hydrin lotion to the feet daily. 7. Lotrimin 1% cream to the feet twice a day. 8. Nicotine patch 21 mg daily. 9. Multivitamin one tablet daily. 10. Xopenex nebulizer 0.63 mg every 12 hours. Patient is seen by delinquency prevention social worker. Patient seen by psychiatrist. Patient's inpatient hospitalization is extended till next week. At present, according to the delinquency prevention social worker and psychiatrist's evaluation, patient is for tentative discharged on 12/28/2017. Patient will be followed in the hospital while she is in-house. Dictated and electronically signed, not read. Colt Irizarry MD
[2017-12-25] MEDS: Levalbuterol 0.63 MG/3 ML Inhal Soln UD IH SCH ×2 (08:21→22:00)
[2017-12-25] MEDS: Clotrimazole 1% Cream(30 gm) TOP SCH ×2 (08:27→15:27)
[2017-12-25] MEDS: Ammonium Lactate 12% Cream (140 g) TOP SCH (08:28)
[2017-12-25] MEDS: Multivitamin Therapeutic Tab PO SCH (09:20)
--- NOTE | 2017-12-25 13:22 | PN ---
DATE: SUBJECTIVE: The patient is seen ambulating on the floor. The patient is also seen in room 517, bed 1. The patient today stated that her small blister on the lower lip has started to crust and has burst open. On examination, the patient has dried blister and crusting of the lower lip. PHYSICAL EXAMINATION: VITAL SIGNS: T-max 98.6; pulse 93-92; blood pressure 119/69, 137/70; respirations 20. HEENT: Head examination normocephalic, atraumatic. HEENT examination shows pinkish conjunctivae. Anicteric sclerae. Dry blister with crusting noted of the lower lip. No neck rigidity. No erythema of the lip noted. No jugular venous distention. No audible carotid bruit. CHEST: Kyphosis. LUNGS: Shows no rales, crackles or wheezing. CARDIOVASCULAR: S1, S2. Regular rhythm. ABDOMEN: Morbidly obese. No hepatosplenomegaly palpated. No guarding. No rigidity. No rebound tenderness. No costovertebral angle tenderness. GENITALIA: Female. RECTAL: Deferred. EXTREMITY: Shows chronic nonpitting swelling of the lower extremity. MUSCULOSKELETAL: Shows a body mass index of 54. IMPRESSION AND PLAN: 1. Lower lip crusted blister versus questionable herpes labialis. 2. Super morbid obesity with elevated body mass index of 54. 3. Acute exacerbation of schizoaffective disorder. 4. Normocytic anemia. 5. Hypokalemia. 6. Trace proteinuria, ketonuria. 7. Nicotine, alcohol and phencyclidine abuse and dependence. 8. Poor personal hygiene. 9. O+ blood type. 10. History of bipolar disorder, history of substance abuse, history of anxiety, history of questionable behavioral disorder with delusion. 11. Psychosis. PLAN: At this time, the patient is going to be continued to be staying on the Psychiatry floor. The patient will be followed by Psychiatry and Medicine Service. The patient is for tentative discharge on 12/28/2017. The patient will be continued on the medications as per the MAR, which is reviewed. The patient is on Benadryl 50 mg at bedtime p.r.n., folic acid 1 mg daily, Haldol 5 mg IM q. 6 hours p.r.n., Haldol 10 mg a.m. and at bedtime, Haldol 5 mg 4:00 p.m., Lac-Hydrin lotion to the both feet daily, Lotrimin cream to the affected feet twice a day, nicotine patch 21 mg daily, multivitamin 1 tablet daily. The patient was started on Valtrex 500 mg twice a day after verifying with the pharmacy and other resources if it is safe to use in a female. The patient is on Xopenex nebulizer q. 12 hours 0.63 mg. At present, in hospital formulary and pharmacy, we do not have topical Zovirax. Dictated and electronically signed, not read. Colt Irizarry MD
--- NOTE | 2017-12-25 16:58 | PCM.PYCHPN ---
Psychiatric Progress Note - Psychiatric Progress Note Patient seen today, length of contact: 30min Patient Chief Complaint: " , I feel good on my meds now..." Problems Identified/Issues Discussed: Suicide/ homicide prevention, past psychiatric h/o, current psychiatric symptoms , medical problems, risk/benefits and alternatives of medications, medications compliance, coping strategies, substance abuse h/o, relapse prevention, importance of follow up with psychiatrist and therapist, discharge plan. Medical Problems: pt has obesity foot fungal infection pt is see note for more detailed information Diagnostic Results: 12/16/17 07:00 12/16/17 07:00 Lab Results 12/17/17 08:15: Vitamin B12 575 12/16/17 07:00: Hemoglobin A1c 5.6 12/16/17 07:00: WBC 7.3, RBC 4.31, Hgb 11.6 L, Hct 35.1 L, MCV 81.4, MCH 26.9, MCHC 33.0, RDW 14.2, Plt Count 287, MPV 9.4, Gran % 59.2, Lymph % (Auto) 29.7, Wirt % (Auto) 6.7 H, Eos % (Auto) 4.1, Baso % (Auto) 0.3, Gran # 4.34, Lymph # ( Auto) 2.2, Wirt # (Auto) 0.5, Eos # (Auto) 0.3, Baso # (Auto) 0.02 12/16/17 07:00: RPR Nonreactive 12/16/17 07:00: TSH 3rd Generation 1.12, Beta HCG, Quant 27324.00 H 12/16/17 07:00: Sodium 137, Potassium 4.0, Chloride 102, Carbon Dioxide 25, Anion Gap 14, BUN 6 L, Creatinine 0.7, Est GFR ( Amer) > 60, Est GFR (Non -Af Amer) > 60, Random Glucose 100, Fasting Glucose 100, Calcium 9.8, Magnesium 2.0, Total Bilirubin 0.4, Direct Bilirubin 0.4, AST 29, ALT 29, Alkaline Phosphatase 71, Total Protein 7.6, Albumin 3.8, Globulin 3.8, Albumin/Globulin Ratio 1.0 L, Triglycerides 54, Cholesterol 175, LDL Cholesterol Direct 54, HDL Cholesterol 97 H, Folate > 20.0 12/15/17 11:12: Alcohol, Quantitative < 10 12/14/17 16:10: Blood Type Confirm O POSITIVE 12/14/17 16:10: Urine Color Yellow, Urine Appearance Sl cloudy, Urine pH 6.0, Ur Specific [place] 1.025, Urine Protein Trace H, Urine Glucose (UA) Negative, Urine Ketones 15 H, Urine Blood Negative, Urine Nitrate Negative, Urine Bilirubin Negative, Urine Urobilinogen 0.2, Ur Leukocyte Esterase Negative, Urine RBC Negative, Urine WBC 0 - 2, Ur Epithelial Cells Many, Urine HCG, Qual Positive 12/14/17 16:10: Urine Opiates Screen Negative, Urine Methadone Screen Negative, Ur Barbiturates Screen Negative, Ur Phencyclidine Scrn Positive H, Ur Amphetamines Screen Negative, U Benzodiazepines Scrn Negative, U Oth Cocaine Metabols Negative, U Cannabinoids Screen Negative 12/14/17 15:15: Blood Type O POSITIVE, Antibody Screen Negative, BBK History Checked No verified bt 12/14/17 14:25: Sodium 140, Potassium 3.5 L, Chloride 106, Carbon Dioxide 25, Anion Gap 13, BUN 9, Creatinine 0.7, Est GFR ( Amer) > 60, Est GFR (Non- Af Amer) > 60, Random Glucose 129 H, Calcium 9.5, Total Bilirubin 0.2, AST 26, ALT 24, Alkaline Phosphatase 102, Total Protein 7.2, Albumin 3.7, Globulin 3.5, Albumin/Globulin Ratio 1.1 12/14/17 14:25: WBC 7.6 D, RBC 4.21, Hgb 11.3 L D, Hct 33.9 L, MCV 80.5, MCH 26.8, MCHC 33.3, RDW 14.2, Plt Count 277, MPV 9.2 Vital Signs Temp Pulse Resp BP Pulse Ox 12/16/17 16:00 95 H 136/85 12/16/17 07:09 97.9 F 86 20 104/64 12/15/17 22:42 98.2 F 102 H 20 144/85 12/15/17 22:16 20 12/15/17 19:00 97.8 F 80 18 138/70 100 12/15/17 17:07 98.9 F 80 16 147/83 100 12/15/17 13:28 98.6 F 94 H 14 144/86 100 12/15/17 06:00 98.5 F 79 16 137/69 100 12/15/17 04:00 98.3 F 85 16 132/79 99 12/15/17 02:00 98.6 F 76 17 124/68 100 12/15/17 00:00 98.6 F 80 16 124/76 100 12/14/17 22:00 98.3 F 85 16 137/69 99 12/14/17 20:00 98.4 F 70 19 138/79 98 12/14/17 18:00 91 H 18 124/74 99 12/14/17 16:42 96 H 18 126/80 99 12/14/17 15:10 100 H 18 125/86 99 12/14/17 13:14 98.3 F 107 H 18 127/91 H 99 Laboratory Results - last 24 hr 12/18/17 10:20 Total Creatine Kinase 150 Temp Pulse Resp BP Pulse Ox 97.9 F 97 H 20 122/59 L 100 12/21/17 07:28 12/21/17 07:28 12/21/17 07:28 12/21/17 07:28 12/15/17 19:00 Temp Pulse Resp BP Pulse Ox 98.2 F 100 H 16 119/77 100 12/22/17 07:09 12/22/17 07:09 12/22/17 07:09 12/22/17 07:09 12/15/17 19:00 Vital Signs - 24 hr 12/23/17 07:24 Temperature 98.6 F Pulse Rate 97 H Respiratory 20 Rate Blood Pressure 140/81 Temp Pulse Resp BP Pulse Ox 98.2 F 96 H 20 137/70 100 12/24/17 07:21 12/24/17 07:21 12/24/17 07:21 12/24/17 07:21 12/15/17 19:00 DSM 5 Symptoms Update: Shortly pt is 37yo AAF with long h/o mental illness, h/o multiple admissions in the psychiatric inpatient unit [place] [facility] [place] recent admission to [facility] in August 2017), pt also has h/o substance use disorder, pt was admitted for evaluation and stabilization of disorganized, psychotic behavior, initially pt came for evaluation of abdominal pain, in ED pt presented to be disorganized, psychotic, this writer technical publications suggested [facility] [place], during awaiting for [facility] [place] pt required to be medicated with Haldol 2mg PO, then pt was evaluated and pt was found to be not committable, pt was offered voluntary admission to [facility], pt agreed to sign in, then over night pt decided to leave the hospital and signed 48hr notice, then rescinded it, on the other day pt signed another 48hr notice, then rescinded it again. Currently pt is under voluntary status. family meeting took place 12/24/17: patient, her mother (POA) Shante Jiang, SW, this writer technical publications participated. see yesterday's note for more detailed information. pt decided to have an pt and mother both agreed with d/c planning IOP program [facility] program med management. pt's meds adjusted yesterday, haldol increased, pt said "doctor Ramonita, I feel much better on increased dose of medications..", pt's thought process is circumstantial and tangential but overall better organized, pt is not talking about "aliens under my bed" or recording songs with Bora Gillis and Malgorzata. pt is about 16weeks of , was using PCP, was absolutely disorganized, this writer technical publications continued Haldol what pt was [place] [facility] [place]. as per staff pt is doing better, but labile, usually pt is pleasant, but at times could be demanding. OB and Associate Dentist team evaluated pt, consult, input appreciated. see notes. Podiatry consult appreciated. medical consult appreciated. pt was educated about risk/benefits and alternatives of meds. pt tolerates meds well, no side effects observed or reported, AIMS 0, no EPS. Impression: Schizoaffective disorder PCP abuse Medication Change: Yes (haldol increased) Medical Record Reviewed: Yes Mental Status Examination - Cognitive Function Orientation: Person Memory: Impaired Attention: Poor (somewhat better) Concentration: Poor (some improvement) Association: Loose Fund of Knowledge: Poor - Mood Mood: Depressed ("I am not depressed, I am very proud of myself") - Affect Affect: Broad, Other (labile) - Speech Speech: Appropriate (overproductive) - Formal Thought Process Formal Thought Process: Hallucinations (deneid), Delusions (grandiouse), Loosening of associations, Circumstantial, Perservation - Suicidal Ideation Suicidal Ideation: No - Homicidal Ideation Homicidal Ideation: No Goal/Treatment Plan - Goal/Treatment Plan Need for Continued Stay: Remain at risks for inpatient hospitalization, Severe depression anxiety, Discharge may exacerbated symptoms, Failed transitioning, Severe functional impairment Progress Toward Problem(s) and Goals/Treatment Plan: Milieu/structure/supportive therapy meds confirmed OB&Associate Dentist called, input appreciated Podiatry consult called, consult appreciated Haldol 10mg amhs 5mg at 4pm for psychosis (pt was [place] [facility] [place]ol 5mg po tid) PRN meds benadryl as needed for insomnia MVI () Folic acid SW evaluation pt submitted 48hr noticeX 2, but rescinded Pt was screened by [facility] [place], was not found to be committable Family involvement, family meeting took place twice will monitor closely family meeting appreciated, awaiting for the legal documents indicating pt's mother is POA Pt was educated about risk/benefits and alternatives of medications, coping strategies (safety plan, suicide prevention), relapse prevention, importance of follow up with psychiatrist and therapist, stay away from drugs/alcohol/smoking medical [place] [facility] [place] requested, appreciated, filed in chart family meeting 12/24/17 see above Estimated Date of D/C: 12/28/17
[2017-12-26] MEDS: Clotrimazole 1% Cream(30 gm) TOP SCH ×2 (09:15→16:01)
[2017-12-26] MEDS: Ammonium Lactate 12% Cream (140 g) TOP SCH (09:15)
[2017-12-26] MEDS: Multivitamin Therapeutic Tab PO SCH (09:16)
--- NOTE | 2017-12-26 09:54 | PCM.PYCHPN ---
Psychiatric Progress Note - Psychiatric Progress Note Patient seen today, length of contact: 25 min Patient Chief Complaint: "I am better Dr. Phillips" Problems Identified/Issues Discussed: I reviewed recent notes and met with patient at bedside. Patient is known to me from our interviews last week. She had presented as disorganized, emotional, impulsive, sexually preoccupied and unpredictable. Over the week it appears that her thought process has improved considerably and she can engage in a much more productive interview. She is well-oriented this morning. She remembers me and my name from last week's encounger. Her thought process is still a little tangential though focus is definitely improving and responses are much more relevant and consistent. Emotions appear to be in better control and she is less labile. Patient doesn't appear to be hallucinating and she denies having any perceptual disturbance. Overt delusions were not elicited. Patient denies any new discomfort or pain. Tolerating medications and slept well last night. Staff notes also confirm her improvement over the week though she can still be labile and demanding. There were no reports of overt psychosis, recent or aggression/agitation on the unit. Diagnostic Results: Schizoaffective disorder PCP abuse Medication Change: Yes (haldol increased) Medical Record Reviewed: Yes Mental Status Examination - Cognitive Function Orientation: Person Memory: Impaired Attention: WNL (somewhat better) Concentration: Poor (some improvement) Association: Loose Fund of Knowledge: Poor - Mood Mood: Depressed ( "I am better, Dr. Phillips") - Affect Affect: Broad, Other (labile) - Speech Speech: Appropriate (overproductive) - Formal Thought Process Formal Thought Process: Hallucinations (denies), Delusions (none elicited this morning), Loosening of associations (Improving well), Circumstantial, Perservation (Improving well) - Suicidal Ideation Suicidal Ideation: No - Homicidal Ideation Homicidal Ideation: No Goal/Treatment Plan - Goal/Treatment Plan Need for Continued Stay: Remain at risks for inpatient hospitalization, Severe depression anxiety, Discharge may exacerbated symptoms, Failed transitioning, Severe functional impairment Progress Toward Problem(s) and Goals/Treatment Plan: * c/w current tx and plan * c/w Haldol 08/13/10 and benadryl 50 mg HS. Due to will continue to be conservative with medication changes unless patient demonstrates potentially dangerous behavior to herself or others (though patient's agreement to terminate has been noted in Dr. Cheema's note) * No new weekend labs thus far * Vitals reviewed and noted below: Selected Entries 12/26/17 07:49 Temperature 98.3 F Pulse Rate 84 Respiratory 20 Rate Blood Pressure 118/75 Estimated Date of D/C: 12/28/17
[2017-12-26] MEDS: Levalbuterol 0.63 MG/3 ML Inhal Soln UD IH SCH (22:50)
[2017-12-27] MEDS: Multivitamin Therapeutic Tab PO SCH (08:44)
[2017-12-27] MEDS: Ammonium Lactate 12% Cream (140 g) TOP SCH (08:46)
[2017-12-27] MEDS: Clotrimazole 1% Cream(30 gm) TOP SCH ×2 (08:47→17:37)
--- NOTE | 2017-12-27 11:59 | PCM.PYCHPN ---
Psychiatric Progress Note - Psychiatric Progress Note Patient seen today, length of contact: 25 min Patient Chief Complaint: "I am better Dr. Phillips" Problems Identified/Issues Discussed: I reviewed recent notes and met with patient at bedside. Last weekend she presented as disorganized, emotional, impulsive, sexually preoccupied and unpredictable. Over the week, her thought process has cleared considerably and she can now engage in a much more productive interview. Today patient remains well-oriented. Thought process is still a little tangential though focus is definitely improving and responses are much more relevant and consistent. Emotions appear to be in better control and she is less labile. Patient doesn't appear to be hallucinating and she denies having any perceptual disturbance. Overt delusions were not elicited. Patient denies any new discomfort or pain. Tolerating medications and slept well again last night. Staff notes also confirm her improvement over the week though she still can be labile. Refused group discussion yesterday even with encouragement. There were no reports of overt psychosis, recent or aggression/agitation on the unit. Behavior is much better controlled. Diagnostic Results: Schizoaffective disorder PCP abuse Medication Change: Yes (haldol increased) Medical Record Reviewed: Yes Mental Status Examination - Cognitive Function Orientation: Person Memory: Impaired Attention: WNL (somewhat better) Concentration: Poor (some improvement) Association: Loose Fund of Knowledge: Poor - Mood Mood: Depressed ( "I am better, Dr. Phillips") - Affect Affect: Broad, Other (labile) - Speech Speech: Appropriate (overproductive) - Formal Thought Process Formal Thought Process: Hallucinations (denied all weekend), Delusions (none elicited this weekend), Loosening of associations (Improving well), Circumstantial, Perservation (Improving well) - Suicidal Ideation Suicidal Ideation: No - Homicidal Ideation Homicidal Ideation: No Goal/Treatment Plan - Goal/Treatment Plan Need for Continued Stay: Remain at risks for inpatient hospitalization, Severe depression anxiety, Discharge may exacerbated symptoms, Failed transitioning, Severe functional impairment Progress Toward Problem(s) and Goals/Treatment Plan: * c/w current tx and plan * c/w Haldol 08/13/10 and benadryl 50 mg HS. Due to will continue to be conservative with medication changes unless patient demonstrates potentially dangerous behavior to herself or others (though patient's agreement to terminate has been noted in Dr. Cheema's note) * No new weekend labs * Vitals reviewed and noted below: Selected Entries 12/27/17 07:24 Temperature 98.3 F Pulse Rate 80 Respiratory 20 Rate Blood Pressure 109/67 Estimated Date of D/C: 12/28/17
[2017-12-27] MEDS: Levalbuterol 0.63 MG/3 ML Inhal Soln UD IH SCH (22:33)
[2017-12-28 07:16] VITALS: BP 112/58; PULSE 88; RESP 17; TEMP 98.2
[2017-12-28] MEDS: Levalbuterol 0.63 MG/3 ML Inhal Soln UD IH SCH (08:45)
[2017-12-28] MEDS: Multivitamin Therapeutic Tab PO SCH (09:29)
[2017-12-28] MEDS: Clotrimazole 1% Cream(30 gm) TOP SCH (09:32)
[2017-12-28] MEDS: Ammonium Lactate 12% Cream (140 g) TOP SCH (09:35)
--- NOTE | 2017-12-29 00:14 | PN ---
DATE: 12/28/2017 SUBJECTIVE: The patient was seen in the room 517, bed 2. The patient is sitting up in the bed and lying in the bed. The patient is alert, awake, responsive. Does not appear to be in any distress. Overnight nurse's notes were reviewed. The patient slept without any adverse event. The patient was cooperative with medication. The patient was found to be cooperative. The patient denied any auditory or visual hallucination. The patient is today to be discharged. The patient is to be discharged home. The patient was given referral for REFRACTORY REPAIRER for termination of , which the patient is interested in. The patient is to be discharged home to her boyfriend with all prescriptions. PHYSICAL EXAMINATION: VITAL SIGNS: T-max 98.2, pulse 88, blood pressure 121/85, respirations 17. The patient is seen in room 517. HEENT: Head examination normocephalic, atraumatic. HEENT examination shows pinkish pale conjunctivae. Anicteric sclerae. No oropharyngeal lesion. No neck rigidity. CHEST: Symmetrical. LUNGS: Shows no rales, crackles or wheezing. CARDIOVASCULAR: S1, S2. Regular rhythm. Questionable soft systolic murmur, left sternal border, left second intercostal space, right second intercostal space. ABDOMEN: Morbidly obese. GENITALIA: Female. RECTAL: Deferred. EXTREMITY: Shows chronic nonpitting swelling of the lower extremity. No calf tenderness, no Homans' sign. MUSCULOSKELETAL: Shows a body mass index of 55. Gait examination is independent. DIAGNOSTICS: None. IMPRESSION AND PLAN: 1. Resolved questionable lower lip herpes labialis. 2. History of hypertension. History of nicotine, alcohol and polysubstance abuse dependent. 3. Super morbid obesity with elevated body mass index of greater than 55. 4. Normocytic anemia. 5. Morbid obesity. 6. Tangential thought process. 7. Transient tachycardia. 8. Normocytic anemia. 9. Hypokalemia. 10. Gestational state with elevated beta SCG level of greater than 30,000. 11. Trace proteinuria. 12. Urine drug screen positive for PCP. 13. Tenia pedis. Plan at this time, the patient is to be discharge and cleared by Psychiatry. The patient was advised close followup with the psychiatrist and REFRACTORY REPAIRER. The patient's today's medications are Benadryl 50 mg at bedtime p.r.n., folic acid 1 mg daily, Haldol 5 mg IM q. 6 hours p.r.n., Haldol 10 mg a.m. and at bedtime, Haldol 5 mg at 04:00 p.m., Lac-Hydrin lotion to the feet, Lotrimin cream to the feet twice a day, nicotine patch 21 mg daily, multivitamin 1 tablet daily. The patient is to finish today's dose of Valtrex 500 twice a day. The patient is discharged home after cleared by Psychiatry. The patient's discharge medications: Lac-Hydrin lotion to both feet 12% daily, Lotrimin cream to both feet daily, folic acid 1 mg daily, Haldol 10 mg a.m. and at bedtime, Haldol 5 mg at 04:00 p.m., Xopenex nebulizer 0.63 mg twice a day, multivitamin 1 tablet daily, nicotine patch 21 mg daily. The patient was given Valtrex 500 twice a day by Dr[address] Cheema. The patient was discharged home. The patient was advised to follow up in the office if she wishes to, otherwise the patient can continue with her regular physician followup. Dictated and electronically signed, not read. Colt Irizarry MD
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
== END 2017-12-28 12:47 | disposition home or self-care (01) | DRG 886 ==
LOC: ED 13:02 → ERH 12-15 19:40 → PSYC 12-15 21:21
PROVIDERS: ADMIT Psychiatry & Neurology Psychiatry; ATTEND Psychiatry & Neurology Psychiatry
DX: O99.342 Other mental disorders complicating pregnancy, second trimester (principal); F25.0 Schizoaffective disorder, bipolar type; Z68.43 Body mass index [BMI] 50.0-59.9, adult; E66.01 Morbid (severe) obesity due to excess calories; F16.20 Hallucinogen dependence, uncomplicated; K76.0 Fatty (change of) liver, not elsewhere classified; O26.612 Liver and biliary tract disorders in pregnancy, second trimester; O16.2 Unspecified maternal hypertension, second trimester; O99.322 Drug use complicating pregnancy, second trimester; E87.6 Hypokalemia; O99.012 Anemia complicating pregnancy, second trimester; O99.212 Obesity complicating pregnancy, second trimester; O99.89 Other specified diseases and conditions complicating pregnancy, childbirth and the puerperium; F41.9 Anxiety disorder, unspecified; R73.9 Hyperglycemia, unspecified; F10.10 Alcohol abuse, uncomplicated; O99.312 Alcohol use complicating pregnancy, second trimester; D64.9 Anemia, unspecified; R73.03 Prediabetes; R00.0 Tachycardia, unspecified; Z91.19 Patient's noncompliance with other medical treatment and regimen; Z3A.14 14 weeks gestation of pregnancy; O99.332 Smoking (tobacco) complicating pregnancy, second trimester; F17.210 Nicotine dependence, cigarettes, uncomplicated

== ENCOUNTER 2018-07-24 09:43 | Emergency (ER) | payer OTHER ==
[2018-07-24 09:44] VITALS: BMI 57.5
[2018-07-24 10:03] VITALS: BP 137/78; PULSE 98; RESP 18; TEMP 98.8; O2SAT 98
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
== END 2018-07-24 10:30 | disposition home or self-care (01) ==
LOC: ED 09:43
DX: Z00.8 Encounter for other general examination (principal)

== ENCOUNTER 2018-07-26 00:14 | Emergency (ER) | payer OTHER ==
[2018-07-26 00:53] VITALS: BMI 61.2
[2018-07-26 00:58] VITALS: BP 150/87; PULSE 97; RESP 16; TEMP 98.2; O2SAT 99
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
[2018-07-26 01:10] LABS: URINE BILIRUBIN NEGATIVE (NEGATIVE); URINE BLOOD TRACE-LYSED (NEGATIVE); URINE GLUCOSE (UA) NEGATIVE (NEGATIVE); URINE LEUKOCYTE ESTERASE SMALL Leu/uL (NEGATIVE); URINE PROTEIN NEGATIVE mg/dL (<30 mg/dL); URINE UROBILINOGEN 0.2 E.U./dL (<1 E.U./dL)
[2018-07-26 01:11] LABS: URINE APPEARANCE SL CLOUDY (CLEAR); URINE COLOR YELLOW (YELLOW)
[2018-07-26 01:12] LABS: BASO # 0.02 K/mm3 (0.0-2.0); BASO % 0.2 % (0.0-3.0); EOS # 0.2 (0.0-0.7); EOS % 2.5 % (1.5-5.0); GRAN # 4.78 (1.4-6.5); GRAN % 55.9 % (50.0-68.0); HEMOGLOBIN 12.8 g/dL (12.0-16.0); LYMPH # 2.9 (1.2-3.4); LYMPH % 34.3 % (22.0-35.0); MEAN CELL VOLUME 80.7 fl (80.0-105.0); MEAN CORPUSCULAR HEMOGLOBIN 26.5 pg (25.0-35.0); MEAN CORPUSCULAR HGB CONC 32.8 g/dl (31.0-37.0); MEAN PLATELET VOLUME 9.4 fl (7.0-11.0); MONO # 0.6 (0.1-0.6); MONO % 7.1 % (1.0-6.0); RBC 4.83 10^6/uL (3.5-6.1); WHITE BLOOD COUNT 8.6 10^3/ul (4.5-11.0)
[2018-07-26 01:23] LABS: URINE BACTERIA SMALL (NEG); URINE RBC 0 - 2 /hpf (0-2)
[2018-07-26 01:26] LABS: ACETAMINOPHEN < 10.0 ug/ml (10.0-20.0); SALICYLATE < 1 mg/dL (2.0-20.0)
[2018-07-26 01:27] LABS: ALB/GLOB RATIO 1.2 (1.1-1.8); ALBUMIN 3.8 g/dL (3.0-4.8); ALT/SGPT 23 U/L (7-56); AST/SGOT 18 U/L (14-36); BLOOD UREA NITROGEN 13 mg/dL (7-21); GFR NON-AFRICAN AMERICAN > 60
[2018-07-26 01:42] LABS: BARBITURATES, UR NEGATIVE (NEGATIVE); BENZODIAZEPINES, UR NEGATIVE (NEGATIVE); OPIATES, UR NEGATIVE (NEGATIVE); PHENCYCLIDINE, UR POSITIVE (NEGATIVE)
--- NOTE | 2018-07-26 09:41 | RAD ---
Date of service: 07/26/2018 HISTORY: pes eval COMPARISON: 08/15/2017. FINDINGS: LUNGS: The lungs are well inflated. There is mild pulmonary venous congestion. PLEURA: No significant pleural effusion identified, no pneumothorax apparent. CARDIOVASCULAR: There is mild cardiomegaly and prominent central vasculature. OSSEOUS STRUCTURES: No significant abnormalities. VISUALIZED UPPER ABDOMEN: Normal. OTHER FINDINGS: None. IMPRESSION: No active pulmonary disease.
--- NOTE | 2018-07-27 14:09 | CARD ---
APPROVED REPORT Date of service: 07/26/2018 EKG Measurement Heart [id number] <Conclusion> Normal sinus rhythm Normal ECG
== END 2018-07-26 06:00 | disposition home or self-care (01) ==
LOC: ED 00:14
DX: F20.9 Schizophrenia, unspecified (principal); I10 Essential (primary) hypertension; E11.9 Type 2 diabetes mellitus without complications; F31.9 Bipolar disorder, unspecified; Z87.891 Personal history of nicotine dependence

== ENCOUNTER 2019-02-26 04:41 | Emergency (ER) | payer OTHER ==
[2019-02-26 04:51] VITALS: BMI 60.7
[2019-02-26 05:10] VITALS: BP 137/90; PULSE 90; RESP 18; TEMP 97.5; O2SAT 97
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
== END 2019-02-26 05:18 | disposition home or self-care (01) ==
LOC: ED 04:41
DX: R52 Pain, unspecified (principal); E11.9 Type 2 diabetes mellitus without complications; F17.210 Nicotine dependence, cigarettes, uncomplicated; I10 Essential (primary) hypertension; F20.9 Schizophrenia, unspecified; F31.9 Bipolar disorder, unspecified